=== PATIENT | female | born 1945 | race Caucasian/White ===

== ENCOUNTER → 2017-01-19 | Outpatient (CLI) | payer MEDICARE ==
[2016-08-07 19:25] VITALS: BP 163/93
[~2017-01-19] MED LIST: ACET325T9 PO; ASCO60LO PO; ASPI-482 PO; CARB1TAB2 PO; CARB1TAB25 PO; CHOL20004 PO; CITA20TA9 PO; CLON1TAB3 PO; CYCL10TA2 PO; DOCU-27 PO; GABA-586 PO; HYDR-2762 PO; HYDR1TAB12 PO; KETO10TA PO; LEVO100T5 PO; LEVO500T38 PO; LEVO75TA5 PO; MILN50TA PO; OMEG-33 PO; OMEG500C PO; OMEP40CA5 PO; POLY17PO5 PO; RANI150T2 PO; ROPI3TAB PO; TAMS0.4C97 PO; TRAM50TA PO; VITA1000 PO; WARF5TAB PO; carb/levo; fish oil; flexeril
[2017-01-19 14:55] LABS: BASO # 0.1 x10^3/uL (0.0-0.2); BASO % 1 % (0-3); EOS % 3 % (0-3); HEMATOCRIT 40.6 % (36.0-47.0); HEMOGLOBIN 13.7 g/dL (12.0-15.5); LYMPH # 3.7 x10^3/uL (1.0-4.8); LYMPH % 35 % (24-48); MEAN CORPUSCULAR HEMOGLOBIN 34 pg (25-35); MEAN CORPUSCULAR HGB CONC 34 g/dL (31-37); MEAN CORPUSCULAR VOLUME 100 fL (79-100); MONO % 7 % (0-9); NEUT % 53 % (31-73); PLATELET COUNT 254 x10^3/uL (140-400); RED BLOOD COUNT 4.07 x10^6/uL (3.50-5.40); RED CELL DISTRIBUTION WIDTH 14.2 % (11.5-14.5); WHITE BLOOD COUNT 10.5 x10^3/uL (4.0-11.0)
[2017-01-19 15:20] LABS: ALBUMIN 3.1 g/dL (3.4-5.0); ALBUMIN/GLOBULIN RATIO 0.8 (1.0-1.7); CALCIUM 9.3 mg/dL (8.5-10.1); CREATININE 0.9 mg/dL (0.6-1.0); GFR 61.5; TOTAL BILIRUBIN 0.6 mg/dL (0.2-1.0); TOTAL PROTEIN 6.9 g/dL (6.4-8.2)
== END | disposition home or self-care (01) ==
LOC: SURGPAT 13:57
PROVIDERS: ATTEND Surgery
DX: Z01.812 Encounter for preprocedural laboratory examination (principal)
CPT/HCPCS: 36415; 80053; 85027

== ENCOUNTER 2017-01-26 06:42 | Inpatient (IN) | payer MEDICARE ==
[~2017-01-26] VITALS: Ht 162.6 cm; Wt 65.8 kg
[2017-01-26] VITALS (11 sets, daily range): BP systolic 109–132; BP diastolic 63–80
[~2017-01-26 06:42] MED LIST changes: +CEFOXITIN 2GM IVPB FOR OMNI 100 ML IV PRN
[2017-01-26] MEDS ORDERED: IV RINGERS,LACTATED 1000ML 1,000 ML IV SCH (07:00)
[2017-01-26] MEDS ORDERED: PROCHLORPERAZINE 10 MG/2 ML VIAL. IV PRN (07:00)
[2017-01-26] MEDS ORDERED: MORPHINE SULFATE 2 MG/ML DISP.SYRIN. IV PRN (07:00)
[2017-01-26] MEDS ORDERED: LIDOCAINE 1% 1 ML SYRINGE. ID PRN (07:00)
[2017-01-26] MEDS ORDERED: HYDROMORPHONE 2 MG/ML VIAL. IV PRN (07:00)
[2017-01-26] MEDS ORDERED: FENTANYL PF 100 MCG/2 ML VIAL. IV PRN (07:00)
[2017-01-26] MEDS ORDERED: LIDOCAINE 2% 100 MG/5 ML DISP.SYRIN. ONE (07:04)
[2017-01-26] MEDS ORDERED: PROPOFOL 20 ML IV ONE (07:05)
[2017-01-26] MEDS ORDERED: DEXAMETHASONE SOD PHOS 20 MG/5 ML VIAL. ONE (07:05)
[2017-01-26] MEDS ORDERED: FAMOTIDINE 20 MG/2 ML VIAL ONE (07:05)
[2017-01-26] MEDS ORDERED: ONDANSETRON PF 4 MG/2 ML VIAL. ONE (07:05)
[2017-01-26] MEDS ORDERED: FENTANYL PF 100 MCG/2 ML VIAL. ONE ×2 (07:07→09:12)
[2017-01-26] MEDS ORDERED: ROCURONIUM 50 MG/5 ML VIAL. ONE (07:07)
[2017-01-26] MEDS ORDERED: MIDAZOLAM HCL 2 MG/2 ML VIAL. ONE (07:08)
[2017-01-26] MEDS: IV RINGERS,LACTATED 1000ML 1,000 ML IV SCH ×4 (07:52→21:35)
[2017-01-26] MEDS ORDERED: ACETAMINOPHEN INTRAVENOUS 100 ML IV ONE (07:55)
--- NOTE | 2017-01-26 08:02 | PDOC ---
SURGICAL PROGRESS NOTE Subjective 72 yo F with rectal stenosis, loop colostomy TO OR for colostomy takedown, rigid sigmoidoscopy R/B/A d/w pt and pt's [id number] Vital Signs Vital Signs Date Time Temp Pulse Resp B/P Pulse Ox O2 Delivery O2 Flow Rate FiO2 01/26/17 07:50 98.8 71 18 98 98.8 ISABEL MICHELE MD Jan 26, 2017 08:02
[2017-01-26] MEDS ORDERED: EPHEDRINE PF IN SALINE 50 MG/5 ML DISP.SYRIN. IV ONE (08:18)
[2017-01-26] MEDS ORDERED: LIDOCAINE 2% TOPICAL JELLY 5GM TUBE. TP ONE (08:20)
[2017-01-26] MEDS ORDERED: PHENYLEPHRINE in 0.9% NACL PF 1 MG/10 ML DISP.SYRIN. IV ONE (08:23)
[2017-01-26] MEDS ORDERED: VECURONIUM BOLUS 10 MG VIAL. IV ONE (09:12)
[2017-01-26] MEDS ORDERED: 0.9 % SODIUM CHLORIDE 50 ML VIAL. IJ ONE (09:13)
--- NOTE | 2017-01-26 09:44 | PREOP HP ---
DATE OF SERVICE: 01/26/2017 REFERRING PHYSICIANS: Dr. Vic Anna. CHIEF COMPLAINT: None. DIAGNOSIS: Rectal stenosis, presence of colostomy. PLANNED PROCEDURE: Rigid sigmoidoscopy and takedown of loop colostomy. HISTORY OF PRESENT ILLNESS: This is a 72-year-old female who has a history of rectal stenosis status post altemeier procedure and fall. She subsequently had a rectal dilatation and diverting loop colostomy. She and her noted increasing difficulty dealing with the colostomy and frequent episode of the spillage. She has been tolerating regular diet and wishes to proceed with colostomy takedown. ALLERGIES: SHE HAS ALLERGY TO SULFA, PENICILLIN. MEDICATIONS: Include levothyroxine, vitamin D, carbidopa, citalopram, clonazepam, Caspar, gabapentin, Protonix, senna, vitamin E, ropinirole, fish oil and Ativan. PAST MEDICAL HISTORY: Parkinson's disease, fibromyalgia, thyroid disease, history of blood clots, migraine headaches. PAST SURGICAL HISTORY: Bilateral knee replacement, hysterectomy, bilateral salpingo-oophorectomy, altemeier procedure in 05/2016, cholecystectomy, breast biopsy, tonsillectomy, bilateral carpal tunnel repair, laminectomy, back fusion, sigmoid colostomy with rectal dilatation and laparoscopic sigmoid colectomy. SOCIAL HISTORY: No tobacco, no significant alcohol use. FAMILY HISTORY: Noncontributory. REVIEW OF SYSTEMS: All systems reviewed and negative except for HPI. PHYSICAL EXAMINATION: GENERAL: Well-developed, obese female lying in bed in the preoperative area. She is wheelchair bound primarily. HEENT: Normocephalic, anicteric sclerae. Oropharynx clear. NECK: Supple. CHEST: Bilateral chest excursion, no tenderness. ABDOMEN: Soft, nondistended, nontender to palpation. Her ostomy is pink and viable, but is prolapsed a fair amount. NEUROLOGIC: She does have somewhat flat affect with slow movement consistent with Parkinson's. EXTREMITIES: Normal range of motion, in a wheel chair. RECTAL: Deferred. ASSESSMENT AND PLAN: Colostomy prolapse, presence of colostomy. 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 The patient and patient's as well as the patient's son previously had been informed of the risks, benefits and alternatives to procedure, risks including but not limited to bleeding, infection, damage to surrounding structures, risk of anesthesia, risk of anastomotic leak. Risk of anesthesia and significant risk of rectal leakage as patient has fairly poor sphincter control. The patient and patient's and the patient's son previously appeared to understand and their insightful questions were answered and they agreed to proceed. Thank you for allowing participation in the care of this pleasant patient. ISABEL MICHELE MD DR: MERVAT/nts JOB#: [id number] / [id number] VIC Love MD MTDD
[2017-01-26] MEDS ORDERED: NEOSTIGMINE METHYLSULFATE 5 MG/5 ML SYRINGE. ONE (09:50)
[2017-01-26] MEDS ORDERED: GLYCOPYRROLATE 1 MG/5 ML VIAL. ONE (09:50)
[2017-01-26] MEDS ORDERED: DESFLURANE > 120 MINUTES IH ONE (10:05)
[2017-01-26] MEDS: IV NORMAL SALINE 1000ML BAG 1,000 ML IV SCH (10:16)
--- NOTE | 2017-01-26 10:26 | PDOC ---
BRIEF OPERATIVE NOTE Pre-Op Diagnosis Rectal stenosis, colostomy Post-Op Diagnosis same Procedure Performed Colostomy takedown, rigid sigmoidoscopy Surgeon Homer Anesthesia Type: General Blood Loss 50 IV Fluid 1200 Specimens Obtained colon Findings min stenosis Complications none Additional Remarks [id number] ISABEL MICHELE MD Jan 26, 2017 10:26
[2017-01-26] MEDS ORDERED: 0.9 % SODIUM CHLORIDE 10 ML DISP.SYRIN. IV PRN (10:30)
[2017-01-26] MEDS ORDERED: NALOXONE 0.4 MG/ML VIAL. IV PRN (10:30)
[2017-01-26] MEDS ORDERED: HYDROMORPHONE STANDARD PCA 30 ML IV PRN (10:30)
[2017-01-26] MEDS ORDERED: ONDANSETRON PF 4 MG/2 ML VIAL. IV PRN (10:30)
[2017-01-26] MEDS: FENTANYL PF 100 MCG/2 ML VIAL. IV PRN ×2 (11:06→11:42)
--- NOTE | 2017-01-26 11:36 | OP ---
DATE OF SURGERY: 01/26/2017 REFERRING PHYSICIANS: Dr. Vic Anna PREOPERATIVE DIAGNOSIS: Rectal stenosis, presence of colostomy. POSTOPERATIVE DIAGNOSIS: Rectal stenosis, presence of colostomy. PROCEDURE: Rigid sigmoidoscopy colostomy takedown. SURGEON: Daniel Michele MD ESTIMATED BLOOD LOSS: 50 mL. FLUIDS: 1200 mL. COMPLICATIONS: None. FINDINGS: Prolapsed colostomy. No obvious intra-abdominal pathology, minimal rectal stenosis. INDICATIONS: A 72-year-old female with history of rectal stenosis and previous looped colostomy. She is having difficulties with increasing leakage from the colostomy, and this was felt to be secondary to prolapsing of the colostomy. Subsequently, it was felt the patient would best be served by a colostomy takedown as well as a rigid sigmoidoscopy to evaluate her stenosis. The patient and the patient's family were informed of the risks, benefits, alternatives to the procedure, risks including but not limited to bleeding, infection, damage to surrounding structures, risk of anesthesia, risk of an open procedure, and risk of anastomotic leak. The patient and the patient's family appeared to understand, and their insightful questions were answered, and they agreed to proceed. DESCRIPTION OF PROCEDURE: After obtaining informed consent, the patient was taken to the operating room, induced under general endotracheal anesthetic. The patient was prepped and draped in the usual fashion in the anterior abdominal wall. A rigid sigmoidoscopy was introduced as well as a rectal exam which demonstrated a mid-rectal stenosis. However, this was significantly improved over previous and was fairly minimal and easily allowed the rigid sigmoidoscopy to pass through this. The colostomy was identified in the left lower quadrant. Electrocautery was used to divide the mucocutaneous junction. The colostomy was then mobilized out of the surrounding subcutaneous tissues. It was noted to be significantly prolapsed. The peritoneal cavity was entered. There was no obvious intra-abdominal pathology. A very large amount of redundant colon was eviscerated. A [id number] staple anastomosis was created using a gentle load GATITO stapler, and the end of this was sealed off using a TA 60 stapler. The mesentery was divided using electrocautery, and vessels were ligated using 3-0 Vicryl stitches. The staple line was oversewn using a continuous 3-0 Vicryl stitch. The anastomosis was noted to be patent and in no tension, completely viable. No evidence for leakage. Rigid sigmoidoscopy was reintroduced, and air across the anastomosis without evidence of air leakage, and the anastomosis distended well. Clothes were changed, and the viscera was returned to the abdominal cavity. The fascia was reapproximated in a ghys-ysfk-[id number] fashion and a transverse fashion using 2 looped 0 PDS stitches in continuous fashion. Subcutaneous tissues were closed in multiple layers using a 3-0 Vicryl in a pursestring fashion. The skin incision was loosely reapproximated using a 4-0 Monocryl. Sterile dressing was placed over the wound. The patient tolerated the procedure well and was discharged to recovery room in stable condition. All counts were correct. There were no immediate complications. Wound classification is dirty secondary to colostomy. Thank you for allowing me to participate in the care of this very pleasant patient. DANIEL MICHELE MD DR: MERVAT/klarissa JOB#: [id number] / [id number] Vic Odom
[2017-01-26] MEDS: ENOXAPARIN 40 MG/0.4 ML DISP.SYRIN. SQ SCH (18:03)
[2017-01-27 03:08] VITALS: BP 142/82
[2017-01-27] MEDS: IV RINGERS,LACTATED 1000ML 1,000 ML IV SCH ×3 (04:05→16:16)
[2017-01-27 05:50] LABS: BASO # 0.1 x10^3/uL (0.0-0.2); BASO % 1 % (0-3); EOS % 0 % (0-3); HEMATOCRIT 35.5 % (36.0-47.0); HEMOGLOBIN 11.8 g/dL (12.0-15.5); LYMPH # 3.1 x10^3/uL (1.0-4.8); LYMPH % 18 % (24-48); MEAN CORPUSCULAR HEMOGLOBIN 34 pg (25-35); MEAN CORPUSCULAR HGB CONC 33 g/dL (31-37); MEAN CORPUSCULAR VOLUME 102 fL (79-100); MONO % 6 % (0-9); NEUT % 76 % (31-73); PLATELET COUNT 250 x10^3/uL (140-400); RED BLOOD COUNT 3.49 x10^6/uL (3.50-5.40); RED CELL DISTRIBUTION WIDTH 14.1 % (11.5-14.5); WHITE BLOOD COUNT 17.8 x10^3/uL (4.0-11.0)
[2017-01-27 07:00] VITALS: BP 144/87
--- NOTE | 2017-01-27 08:49 | PDOC ---
Provider Note Provider Note [id number] SHALONDA CARO MD Jan 27, 2017 08:49
[2017-01-27] MEDS: HYDROCODONE/APAP 5/325MG TABLET. PO PRN ×2 (10:00→19:11)
[2017-01-27] MEDS: LEVOTHYROXINE 75 MCG TABLET PO SCH (10:01)
[2017-01-27] MEDS: CARBIDOPA/LEVODOPA 25/100MG TABLET PO SCH ×3 (10:01→21:52)
[2017-01-27] MEDS: CITALOPRAM 20 MG TABLET. PO SCH (10:01)
[2017-01-27] MEDS: ENOXAPARIN 40 MG/0.4 ML DISP.SYRIN. SQ SCH (10:01)
[2017-01-27] MEDS: IV NORMAL SALINE 1000ML BAG 1,000 ML IV SCH (10:02)
[2017-01-27 11:00] VITALS: BP 151/98
[2017-01-27 11:15] LABS: PLT ESTIMATE ADEQUATE (ADEQUATE)
--- NOTE | 2017-01-27 13:54 | PDOC ---
SURGICAL PROGRESS NOTE Subjective Pt with c/o mild LLQ pain, farooq clears Vital Signs Vital Signs Date Time Temp Pulse Resp B/P Pulse Ox O2 Delivery O2 Flow Rate FiO2 01/27/17 11:00 98.2 103 16 151/98 95 Nasal Cannula 2.0 98.2 I&O Intake and Output 01/27/17 07:00 Intake Total 1550 ml Output Total 1760 ml Balance -210 ml Intake Oral 50 ml IV Total 1500 ml Output Urine Total 1760 ml # Voids 2 General: Alert, Oriented X3, Cooperative, No acute distress Abdomen: Soft, Other (mild TTP LLQ dressing c/d/i) Labs Laboratory Tests Test 01/27/17 04:56 White Blood Count 17.8x10^3/uL (4.0-11.0) Red Blood Count 3.49x10^6/uL (3.50-5.40) Hemoglobin 11.8g/dL (12.0-15.5) Hematocrit 35.5% (36.0-47.0) Mean Corpuscular Volume 102fL (79-100) Mean Corpuscular Hemoglobin 34pg (25-35) Mean Corpuscular Hemoglobin Concent 33g/dL (31-37) Red Cell Distribution Width 14.1% (11.5-14.5) Platelet Count 250x10^3/uL (140-400) Neutrophils (%) (Auto) 76% (31-73) Lymphocytes (%) (Auto) 18% (24-48) Monocytes (%) (Auto) 6% (0-9) Eosinophils (%) (Auto) 0% (0-3) Basophils (%) (Auto) 1% (0-3) Neutrophils # (Auto) 13.4x10^3uL (1.8-7.7) Lymphocytes # (Auto) 3.1x10^3/uL (1.0-4.8) Monocytes # (Auto) 1.1x10^3/uL (0.0-1.1) Eosinophils # (Auto) 0.1x10^3/uL (0.0-0.7) Basophils # (Auto) 0.1x10^3/uL (0.0-0.2) Segmented Neutrophils % 80% (35-66) Band Neutrophils % 2% (0-9) Lymphocytes % 14% (24-48) Monocytes % 4% (0-10) Platelet Estimate Adequate (ADEQUATE) Laboratory Tests Test 01/27/17 04:56 White Blood Count 17.8x10^3/uL (4.0-11.0) Red Blood Count 3.49x10^6/uL (3.50-5.40) Hemoglobin 11.8g/dL (12.0-15.5) Hematocrit 35.5% (36.0-47.0) Mean Corpuscular Volume 102fL (79-100) Mean Corpuscular Hemoglobin 34pg (25-35) Mean Corpuscular Hemoglobin Concent 33g/dL (31-37) Red Cell Distribution Width 14.1% (11.5-14.5) Platelet Count 250x10^3/uL (140-400) Neutrophils (%) (Auto) 76% (31-73) Lymphocytes (%) (Auto) 18% (24-48) Monocytes (%) (Auto) 6% (0-9) Eosinophils (%) (Auto) 0% (0-3) Basophils (%) (Auto) 1% (0-3) Neutrophils # (Auto) 13.4x10^3uL (1.8-7.7) Lymphocytes # (Auto) 3.1x10^3/uL (1.0-4.8) Monocytes # (Auto) 1.1x10^3/uL (0.0-1.1) Eosinophils # (Auto) 0.1x10^3/uL (0.0-0.7) Basophils # (Auto) 0.1x10^3/uL (0.0-0.2) Segmented Neutrophils % 80% (35-66) Band Neutrophils % 2% (0-9) Lymphocytes % 14% (24-48) Monocytes % 4% (0-10) Platelet Estimate Adequate (ADEQUATE) Problem List Problems Medical Problems: (1) Rectal stenosis Status: Acute Assessment/Plan s/p colostomy takedown cont clears await bowel fxn Problems: ISABEL MICHELE MD Jan 27, 2017 13:54
[2017-01-27 15:00] VITALS: BP 117/76
[2017-01-27 19:00] VITALS: BP 147/91
[2017-01-27] MEDS: CLONAZEPAM 1 MG TABLET PO PRN (19:11)
[2017-01-27] MEDS ORDERED: LORAZEPAM 2 MG/ML VIAL IV PRN (21:30)
[2017-01-27] MEDS ORDERED: LORAZEPAM 2 MG/ML VIAL IV ONE (22:00)
[2017-01-27] MEDS: HALOPERIDOL LACT 5 MG/ML VIAL. IVP PRN (22:53)
[2017-01-27 23:00] VITALS: BP 125/73
[2017-01-28] MEDS: IV RINGERS,LACTATED 1000ML 1,000 ML IV SCH ×4 (00:15→21:04)
[2017-01-28 03:00] VITALS: BP 132/80
[2017-01-28] MEDS: HALOPERIDOL LACT 5 MG/ML VIAL. IVP PRN (03:56)
[2017-01-28] MEDS: HYDROCODONE/APAP 5/325MG TABLET. PO PRN ×3 (03:56→21:03)
[2017-01-28 07:00] VITALS: BP 134/74
--- NOTE | 2017-01-28 08:02 | CONS ---
DATE OF CONSULTATION: 01/27/2017 CHIEF COMPLAINT: Medical evaluation. HISTORY OF PRESENT ILLNESS: A 72-year-old white female who had a colostomy takedown yesterday and has ongoing history of Parkinson's with mild dementia and chronic pain. She is followed by a neurologist, I believe at [facility] and I have not seen her for some months, but I have reviewed her home meds. We will continue most of the home meds in her current doses and will follow medically. There appears to be no new medical problems at this time and she is oriented to date, time, place and situation pretty well despite reports from home nursing in the past of confusion and agitation, which ____ phenomenon. Current laboratories look unremarkable as well. SHALONDA CARO MD DR: ARIANNE/nts JOB#: [id number] / [id number]
[2017-01-28] MEDS: CITALOPRAM 20 MG TABLET. PO SCH (08:22)
[2017-01-28] MEDS: LEVOTHYROXINE 75 MCG TABLET PO SCH (08:22)
[2017-01-28] MEDS: CARBIDOPA/LEVODOPA 25/100MG TABLET PO SCH ×3 (08:22→21:03)
--- NOTE | 2017-01-28 08:52 | PDOC ---
Provider Note Provider Note alert , oriented now but was agitated and confussed last pm, responded to haldol - on cl per surgery, will cont same meds SHALONDA CARO MD Jan 28, 2017 08:52
--- NOTE | 2017-01-28 09:16 | PDOC ---
SURGICAL PROGRESS NOTE Subjective passing stool tolerating clears did have avery replaced for retention Vital Signs Vital Signs Date Time Temp Pulse Resp B/P Pulse Ox O2 Delivery O2 Flow Rate FiO2 01/28/17 07:00 98.2 85 16 134/74 96 Nasal Cannula 2.0 98.2 I&O Intake and Output 01/28/17 07:00 Intake Total 360 ml Output Total 1950 ml Balance -1590 ml Intake Oral 360 ml Output Urine Total 1950 ml General: Alert, Oriented X3, Cooperative, No acute distress Abdomen: Soft, Other (incision c/d/i, no erythema ) Labs Laboratory Tests Test 01/27/17 04:56 01/27/17 21:32 White Blood Count 17.8x10^3/uL (4.0-11.0) Red Blood Count 3.49x10^6/uL (3.50-5.40) Hemoglobin 11.8g/dL (12.0-15.5) Hematocrit 35.5% (36.0-47.0) Mean Corpuscular Volume 102fL (79-100) Mean Corpuscular Hemoglobin 34pg (25-35) Mean Corpuscular Hemoglobin Concent 33g/dL (31-37) Red Cell Distribution Width 14.1% (11.5-14.5) Platelet Count 250x10^3/uL (140-400) Neutrophils (%) (Auto) 76% (31-73) Lymphocytes (%) (Auto) 18% (24-48) Monocytes (%) (Auto) 6% (0-9) Eosinophils (%) (Auto) 0% (0-3) Basophils (%) (Auto) 1% (0-3) Neutrophils # (Auto) 13.4x10^3uL (1.8-7.7) Lymphocytes # (Auto) 3.1x10^3/uL (1.0-4.8) Monocytes # (Auto) 1.1x10^3/uL (0.0-1.1) Eosinophils # (Auto) 0.1x10^3/uL (0.0-0.7) Basophils # (Auto) 0.1x10^3/uL (0.0-0.2) Segmented Neutrophils % 80% (35-66) Band Neutrophils % 2% (0-9) Lymphocytes % 14% (24-48) Monocytes % 4% (0-10) Platelet Estimate Adequate (ADEQUATE) Glucose (Fingerstick) 111mg/dL (70-99) Laboratory Tests Test 01/27/17 21:32 Glucose (Fingerstick) 111mg/dL (70-99) Problem List Problems Medical Problems: (1) Rectal stenosis Status: Acute Assessment/Plan s/p colostomy takedown advance diet urinary retention--this has been a problem in past, leave avery and consult urology Problems: BROOK ARRIOLA APRN Jan 28, 2017 09:16
[2017-01-28] MEDS: ENOXAPARIN 40 MG/0.4 ML DISP.SYRIN. SQ SCH (10:20)
[2017-01-28] MEDS ORDERED: HALOPERIDOL LACT 5 MG/ML VIAL. IVP PRN (10:45)
[2017-01-28 10:48] VITALS: BP 101/61
--- NOTE | 2017-01-28 11:39 | PDOC2 ---
ALEXEYRITO L SATELLITE COMMUNICATIONS ENGINEER 01/28/17 1139: UROLOGY CONSULT Date of Admission DATE: 01/28/17 TIME: 11:30 Reason for Consult: Urinary Retention Referring Physician: Dr. Coronel Problems: (1) Urinary retention HISTORY OF KIDNEY PROBLEMS: No HISTORY OF INCONTINENCE: No HISTORY FREQUENCY/NOCTURIA: Yes HISTORY OF CANCER: No Chief Complaint Pt unable to void last night avery catheter was inserted and left to gravity Source: Caregiver, Chart review, Patient Reason for Visit: GI complaints, surgery 01/26/17 and subsequent urine retention She was taken to surgery on 01/27/17 for colostomy difficulties. While in house she had a lot of trouble voiding so a avery catheter was inserted evening of ROS Patient seen and examined. states that patient has had a lot of trouble in the past with urinary retention every time she comes into the hospital. No other or kidney problems. Some frequency at night with sundown syndrome Past Surgical History: Other (colostomy, colostomy takedown (most recent ), hysterectomy 20-30 years ago, tonsillectomy as a child) Current Medications Current Medications Fentanyl Citrate (Fentanyl 2ml Vial) 25 mcg PRN Q5MIN PRN IV MILD PAIN Last administered on 01/26/17 11:42; Start 01/26/17 at 07:00; Stop 01/27/17 at 06:59 ; Status DC Fentanyl Citrate (Fentanyl 2ml Vial) 50 mcg PRN Q5MIN PRN IV MODERATE PAIN Last administered on 01/26/17t 11:18; Start 01/26/17 at 07:00; Stop 01/27/17 at 06:59; Status DC Morphine Sulfate 1 mg 1 mg PRN Q10MIN PRN IV SEVERE PAIN; Start 01/26/17 at 07: 00; Stop 01/27/17 at 06:59; Status DC Lactated Ringer's (Iv Lactated Ringers) 1,000 ml @ 0 mls/hr Q0M IV ; Start at 07:00; Stop 01/26/17 at 18:59; Status DC Lidocaine HCl 2 ml 1X PRN PRN ID IV START; Start 01/26/17 at 07:00; Stop at 06:59; Status DC Hydromorphone HCl (Dilaudid) 0.5 mg PRN Q10MIN PRN IV SEVERE PAIN, Second choice; Start 01/26/17 at 07:00; Stop 01/27/17 at 06:59; Status DC Prochlorperazine Edisylate 5 mg 5 mg PACU PRN PRN IV NAUSEA; Start 01/26/17 at 07:00; Stop 01/27/17 at 06:59; Status DC Cefoxitin Sodium (Mefoxin 2gm Ivpb For Omni) 100 ml @ 200 mls/hr 1X PREOP PRN IV PRIOR TO PROCEDURE Last administered on 01/26/17t 08:30; Start 01/26/17 at 06 :00 Lidocaine HCl 100 mg STK-MED ONCE .ROUTE ; Start 01/26/17 at 07:04; Stop at 07:05; Status DC Famotidine (Pepcid) 20 mg STK-MED ONCE .ROUTE ; Start 01/26/17 at 07:05; Stop at 07:06; Status DC Ondansetron HCl 4 mg 4 mg STK-MED ONCE .ROUTE ; Start 01/26/17 at 07:05; Stop at 07:06; Status DC Propofol (Diprivan) 20 ml @ As Directed STK-MED ONCE IV ; Start 01/26/17 at 07: 05; Stop 01/26/17 at 07:06; Status DC Dexamethasone Sodium Phosphate (Decadron) 20 mg STK-MED ONCE .ROUTE ; Start at 07:05; Stop 01/26/17 at 07:06; Status DC Fentanyl Citrate (Fentanyl 2ml Vial) 100 mcg STK-MED ONCE .ROUTE ; Start at 07:07; Stop 01/26/17 at 07:08; Status DC Rocuronium Gilbert (Zemuron) 50 mg STK-MED ONCE .ROUTE ; Start 01/26/17 at 07:07 ; Stop 01/26/17 at 07:08; Status DC Midazolam HCl 2 mg 2 mg STK-MED ONCE .ROUTE ; Start 01/26/17 at 07:08; Stop at 07:09; Status DC Acetaminophen 100 ml @ As Directed STK-MED ONCE IV ; Start 01/26/17 at 07:55; Stop 01/26/17 at 07:56; Status DC Lactated Ringer's (Iv Lactated Ringers) 1,000 ml @ 75 mls/hr [id number] IV Last administered on 01/26/17 07:52; Start 01/26/17 at 08:15; Stop 01/28/17 at 02:14 ; Status DC Ephedrine Sulfate 50 mg STK-MED ONCE IV ; Start 01/26/17 at 08:18; Stop at 08:19; Status DC Lidocaine HCl (Xylocaine 2% Topical 5gm Tube) 5 martita STK-MED ONCE TP ; Start at 08:20; Stop 01/26/17 at 08:21; Status DC Phenylephrine HCl 1 mg STK-MED ONCE IV ; Start 01/26/17 at 08:23; Stop 01/26/17 at 08:24; Status DC Fentanyl Citrate (Fentanyl 2ml Vial) 100 mcg STK-MED ONCE .ROUTE ; Start at 09:12; Stop 01/26/17 at 09:13; Status DC Vecuronium Gilbert (Norcuron Bolus) 10 mg STK-MED ONCE IV ; Start 01/26/17 at 09 :12; Stop 01/26/17 at 09:13; Status DC Sodium Chloride (Sodium Chloride) 50 ml STK-MED ONCE IJ ; Start 01/26/17 at 09: 13; Stop 01/26/17 at 09:14; Status DC Neostigmine Methylsulfate 5 mg STK-MED ONCE .ROUTE ; Start 01/26/17 at 09:50; Stop 01/26/17 at 09:51; Status DC Glycopyrrolate (Robinul) 1 mg STK-MED ONCE .ROUTE ; Start 01/26/17 at 09:50; Stop 01/26/17 at 09:51; Status DC Desflurane (Suprane) 90 ml STK-MED ONCE IH ; Start 01/26/17 at 10:05; Stop 01/26 at 10:06; Status DC Enoxaparin Sodium (Lovenox 40mg Syringe) 40 mg Q24H SQ Last administered on 01/28 10:20; Start 01/26/17 at 10:30 Sodium Chloride 3 ml 3 ml QSHIFT PRN IV AFTER MEDS AND BLOOD DRAWS; Start 01/26 at 10:30 Lactated Ringer's (Iv Lactated Ringers) 1,000 ml @ 100 mls/hr Q10H IV Last administered on 01/28/17 02:16; Start 01/26/17 at 10:16 Acetaminophen/ Hydrocodone Bitart (Lortab 5/325) 1 tab PRN Q4HRS PRN PO MILD PAIN Last administered on 01/28/17 03:56; Start 01/26/17 at 10:30 Naloxone HCl 0.4 mg 0.4 mg PRN Q2MIN PRN IV SEE INSTRUCTIONS; Start 01/26/17 at 10:30 Sodium Chloride 1,000 ml @ 25 mls/hr Q24H IV ; Start 01/26/17 at 10:16; Stop at 02:14; Status DC Hydromorphone HCl (Dilaudid Standard CARDING DOUBLER) 30 ml @ 0 mls/hr CONT PRN PRN IV PROTOCOL Last administered on 01/26/17 12:16; Start 01/26/17 at 10:30; Stop 01/28/17 at 01:58; Status DC Ondansetron HCl (Zofran) 4 mg PRN Q6HRS PRN IV NAUESA, 1ST CHOICE; Start at 10:30 Carbidopa/Levodopa (Sinemet 25/100) 1 tab TID PO Last administered on 01/28/17 08:22; Start 01/27/17 at 09:30 Citalopram Hydrobromide (Celexa) 20 mg DAILY PO Last administered on 01/28/17 08:22; Start 01/27/17 at 09:30 Clonazepam (Klonopin) 1 mg PRN DAILY PRN PO ANXIETY / AGITATION Last administered on 01/27/17 19:11; Start 01/27/17 at 08:45 Levothyroxine Sodium (Synthroid) 75 mcg DAILY07 PO Last administered on 08:22; Start 01/27/17 at 09:30 Lorazepam (Ativan) 0.5 mg 1X ONCE IV Last administered on 01/27/17 21:52; Start 01/27/17 at 22:00; Stop 01/27/17 at 22:01; Status DC Lorazepam (Ativan) 0.5 mg PRN Q6HRS PRN IV ANXIETY / AGITATION; Start 01/27/17 at 21:30 Haloperidol Lactate (Haldol) 1 mg PRN Q6HRS PRN IVP AGITATION Last administered on 01/28/17t 03:56; Start 01/27/17 at 21:45; Stop 01/28/17 at 04:24; Status DC Haloperidol Lactate (Haldol) 1 mg PRN Q6HRS PRN IVP AGITATION; Start 01/28/17 at 10:45 Active Scripts Active Reported Ranitidine Hcl 150 Mg Tablet 1 Tab PO BID Colace (Docusate Sodium) 100 Mg Capsule 1 Cap PO PRN DAILY PRN Tramadol Hcl 50 Mg Tablet 0.5 Tab PO TID Flomax (Tamsulosin Hcl) 0.4 Mg Cap.er.24h 1 Cap PO DAILY Sinemet 25-100 Mg Tablet (Carbidopa/Levodopa) 1 Each Tablet 1 Tab PO TID Fish Oil (Endicott-3 Fatty Acids) 500 Mg Capsule.dr 1,000 Mg PO DAILY Vitamin D-3 (Cholecalciferol (Vitamin D3)) 2,000 Unit Capsule 2,000 Unit PO DAILY Levothyroxine Sodium 100 Mcg Tablet 1 Tab PO DAILY06 Cyclobenzaprine Hcl 10 Mg Tablet 1 Tab PO TID Clonazepam 1 Mg Tablet 1 Tab PO PRN DAILY PRN Hydrocodone-Apap 7.5-325 (Hydrocodone Bit/Acetaminophen) 1 Each Tablet 1-2 Tab PO Q4-6HRS Gabapentin 300 Mg Capsule 300 Mg PO BID last dose this am' next dose tonight Vitamin E 1,000 Unit Capsule 1,000 Unit PO DAILY last dose this am next dose tomorrow am wednesday Requip (Ropinirole Hcl) 3 Mg Tablet 3 Mg PO TID last dose at 2pm next dose tonight Omeprazole 40 Mg Capsule.dr 40 Mg PO DAILY last dose this am next dose tomorrow am wednesday Celexa (Citalopram Hydrobromide) 20 Mg Tablet 20 Mg PO DAILY last dose was this am next dose tomorrow on wednesday Allergies: Coded Allergies: Penicillins (Verified Allergy, Intermediate, hives, 01/19/17) Sulfa (Sulfonamide Antibiotics) (Verified Allergy, Intermediate, hives, ) Physical Examination GEN: NAD HEENT: OP clear CV: S1S2 without murmurs, rubs, or gallops RESP: CTAB without wheezing, rhonchi, or crackles upper lobes, dim to lower. 02 via nasal cannula in place GENITOURINARY: Avery to gravity draining clear yellow urine. No perineal irritation, traces of betaine left from avery insertion on 01/27/17 ABD: BS hypoactive, dressing to abdomen from recent surgery is CDI. Pt passing gas NEURO: AAO x 3, answering questions appropriately DOES THIS PATIENT HAVE URINARY: Yes VITALS Vital Signs Date Time Temp Pulse Resp B/P Pulse Ox O2 Delivery O2 Flow Rate FiO2 01/28/17 10:48 98.3 90 18 101/61 92 Nasal Cannula 2.0 98.3 Labs Laboratory Tests Test 01/27/17 04:56 01/27/17 21:32 White Blood Count 17.8x10^3/uL (4.0-11.0) Red Blood Count 3.49x10^6/uL (3.50-5.40) Hemoglobin 11.8g/dL (12.0-15.5) Hematocrit 35.5% (36.0-47.0) Mean Corpuscular Volume 102fL (79-100) Mean Corpuscular Hemoglobin 34pg (25-35) Mean Corpuscular Hemoglobin Concent 33g/dL (31-37) Red Cell Distribution Width 14.1% (11.5-14.5) Platelet Count 250x10^3/uL (140-400) Neutrophils (%) (Auto) 76% (31-73) Lymphocytes (%) (Auto) 18% (24-48) Monocytes (%) (Auto) 6% (0-9) Eosinophils (%) (Auto) 0% (0-3) Basophils (%) (Auto) 1% (0-3) Neutrophils # (Auto) 13.4x10^3uL (1.8-7.7) Lymphocytes # (Auto) 3.1x10^3/uL (1.0-4.8) Monocytes # (Auto) 1.1x10^3/uL (0.0-1.1) Eosinophils # (Auto) 0.1x10^3/uL (0.0-0.7) Basophils # (Auto) 0.1x10^3/uL (0.0-0.2) Segmented Neutrophils % 80% (35-66) Band Neutrophils % 2% (0-9) Lymphocytes % 14% (24-48) Monocytes % 4% (0-10) Platelet Estimate Adequate (ADEQUATE) Glucose (Fingerstick) 111mg/dL (70-99) Laboratory Tests Test 01/27/17 21:32 Glucose (Fingerstick) 111mg/dL (70-99) Assessment/Plan Plan of care discussed with at bedside and also the patient; we will keep avery in place for another 24 hours at least while patient recovers from surgery. We will re-evaluate the need for this tomorrow. Urology plan of care discussed with attending RN's [place] and findings reported to supervising physian Dr. Ascencio. HELENA ASCENCIO MD 01/28/17 1253: UROLOGY CONSULT Allergies: Coded Allergies: Penicillins (Verified Allergy, Intermediate, hives, 01/19/17) Sulfa (Sulfonamide Antibiotics) (Verified Allergy, Intermediate, hives, ) Assessment/Plan Pt. with 1,000 cc in bladder whn avery was placed I examined Pt. and plan will be to keep avery, flomax and f/u with urology OFFICE MACHINE SERVICER Rito Blackburn in 1 week for voiding trial RITO BLACKBURN APRN Jan 28, 2017 11:39 HELENA ASCENCIO MD Jan 28, 2017 12:53
--- NOTE | 2017-01-28 12:50 | PDOC ---
SUBJECTIVE Subjective Pt. with retention OBJECTIVE Objective avery in place Vital Signs Vital Signs Date Time Temp Pulse Resp B/P Pulse Ox O2 Delivery O2 Flow Rate FiO2 01/28/17 10:48 98.3 90 18 101/61 92 Nasal Cannula 2.0 98.3 01/28/17 08:00 Nasal Cannula 01/28/17 07:00 98.2 85 16 134/74 96 Nasal Cannula 2.0 98.2 01/28/17 04:56 16 93 Nasal Cannula 2.0 01/28/17 03:56 16 93 Nasal Cannula 2.0 01/28/17 03:00 98.3 90 20 132/80 93 Nasal Cannula 2.0 98.3 01/27/17 23:00 94 20 125/73 94 Nasal Cannula 2.0 01/27/17 20:03 Nasal Cannula 2.0 01/27/17 19:11 Room Air 01/27/17 19:00 98.4 92 20 147/91 94 Nasal Cannula 2.0 98.4 01/27/17 15:00 98.4 90 16 117/76 94 Nasal Cannula 2.0 98.4 I & O Intake and Output 01/28/17 07:00 Intake Total 360 ml Output Total 1950 ml Balance -1590 ml Intake Oral 360 ml Output Urine Total 1950 ml PHYSICAL EXAM Physical Exam urine clear in tubing ASSESSMENT/PLAN Assessment/Plan 1,000 cc in bladder when avery placed keep avery flomax f/u 1 week 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
[2017-01-28] MEDS: TAMSULOSIN 0.4 MG CAP.ER.24H. PO SCH (13:32)
--- NOTE | 2017-01-28 14:10 | PATHOLOGY ---
PATHOLOGY REPORT * * * * * * * * FINAL DIAGNOSIS: Segment of colon and attached small segment of skin, colostomy takedown: - Colostomy stoma showing congestion and mild chronic inflammation of mucosa of stoma. - Serosal adhesions of colon with focal foreign body giant cell reaction. (JPM:; d/t: 01/28/17) REPORT ELECTRONICALLY SIGNED BY: Chas Torres M.D. DATE/TIME: 01/28/2017 14:09 * * * * * * * * GROSS PATHOLOGY: The specimen is received in formalin labeled "Cecelia Mcintyre, colon". Received is a segment of colon measuring 5.5 cm in length by 3.2 cm in diameter. One margin is stapled closed. The opposite margin displays a stoma with exposed light du mucosa with a slight amount of surrounding pale du skin measuring 3.2 x 2.8 cm. The serosal surface is covered in a large amount of adhesions. There is a circular defect present, which is located 2.2 cm from the stapled margin, measuring 1.5 x 1.0 cm. Opening the specimen reveals a light du mucosa with normal architectural folds. Sectioning through the circular defect reveals multiple naren present embedded within the mucosa. The specimen is submitted representatively as follows: A1 pharmaceutical specialty representative section through circular defect to stapled margin A2-A3 pharmaceutical specialty representative sections from stoma A4 pharmaceutical specialty representative sections of mucosa. (CAA; 01/27/2017) INITIAL CPT CODE(S): A; 17680 Professional services performed by [facility] [place] [address] Technical services performed by [facility] at [address] [place] [address], [facility] [address] [address]. SPECIMEN(S) RECEIVED: A.Colon CLINICAL HISTORY: Colostomy malfunction PATIENT: CECELIA MCINTYRE /AGE: 2 1945 (Age: 72) PATIENT #: [id number] ALT CASE #: SPECIMEN COLLECTION DATE: 01/26/2017 SPECIMEN RECEIVED DATE: 01/26/2017 [facility] - [address] [place] [address] - PHONE: [phone] * * * END OF REPORT * * *
[2017-01-28 15:00] VITALS: BP 102/54
[2017-01-28 19:00] VITALS: BP 100/61
[2017-01-28 23:00] VITALS: BP 108/63
[2017-01-29 03:00] VITALS: BP 119/71
[2017-01-29 06:14] LABS: CREATININE 0.7 mg/dL (0.6-1.0); GFR 82.3
[2017-01-29] MEDS: HYDROCODONE/APAP 5/325MG TABLET. PO PRN ×3 (06:32→18:04)
[2017-01-29] MEDS: LEVOTHYROXINE 75 MCG TABLET PO SCH (06:32)
[2017-01-29 07:00] VITALS: BP 132/78
[2017-01-29] MEDS: CARBIDOPA/LEVODOPA 25/100MG TABLET PO SCH ×3 (08:45→20:34)
[2017-01-29] MEDS: CITALOPRAM 20 MG TABLET. PO SCH (08:45)
[2017-01-29] MEDS: TAMSULOSIN 0.4 MG CAP.ER.24H. PO SCH (08:45)
[2017-01-29] MEDS: ENOXAPARIN 40 MG/0.4 ML DISP.SYRIN. SQ SCH (08:46)
[2017-01-29] MEDS: IV RINGERS,LACTATED 1000ML 1,000 ML IV SCH (08:49)
--- NOTE | 2017-01-29 09:02 | PDOC ---
SURGICAL PROGRESS NOTE Subjective tolerating diet minimal pain Vital Signs Vital Signs Date Time Temp Pulse Resp B/P Pulse Ox O2 Delivery O2 Flow Rate FiO2 01/29/17 07:40 93 Nasal Cannula 2.0 01/29/17 07:00 98.2 90 18 132/78 98.2 I&O Intake and Output 01/29/17 07:00 Intake Total 1830 ml Output Total 1300 ml Balance 530 ml Intake Oral 830 ml IV Total 1000 ml Output Urine Total 1300 ml # Bowel Movements 1 PATIENT HAS A AVERY: Yes (retention) General: Alert, Oriented X3, Cooperative, No acute distress Abdomen: Soft, Other (ND, incision dressing dry ) Labs Laboratory Tests Test 01/27/17 21:32 01/29/17 05:20 Glucose (Fingerstick) 111mg/dL (70-99) Creatinine 0.7mg/dL (0.6-1.0) Estimated GFR (Cockcroft-Gault) 82.3 Laboratory Tests Test 01/29/17 05:20 Creatinine 0.7mg/dL (0.6-1.0) Estimated GFR (Cockcroft-Gault) 82.3 Problem List Problems Medical Problems: (1) Rectal stenosis Status: Acute (2) Urinary retention Status: Acute Assessment/Plan s/p colostomy takedown advance diet PT/OT, SW for dc planning appreciate urology consult--mariah avery in clinic with them Problems: BROOK ARRIOLA APRN Jan 29, 2017 09:02
--- NOTE | 2017-01-29 10:37 | PDOC ---
SUBJECTIVE Subjective Pt has no complaints at this time, catheter is not bothering her. She admits history of a "hesitant bladder" OBJECTIVE Objective Pt alert and oriented, answering questions appropriately Vital Signs Vital Signs Date Time Temp Pulse Resp B/P Pulse Ox O2 Delivery O2 Flow Rate FiO2 01/29/17 07:45 Nasal Cannula 2.0 01/29/17 07:40 93 Nasal Cannula 2.0 01/29/17 07:00 98.2 90 18 132/78 93 Nasal Cannula 2.0 98.2 01/29/17 06:32 16 94 Nasal Cannula 2.0 01/29/17 03:00 98.2 85 18 119/71 94 Nasal Cannula 2.0 98.2 01/28/17 23:00 98.1 78 18 108/63 93 Nasal Cannula 2.0 98.1 01/28/17 22:03 16 01/28/17 21:03 16 94 Nasal Cannula 2.0 01/28/17 20:00 Nasal Cannula 2.0 01/28/17 19:00 98.1 87 18 100/61 94 Nasal Cannula 2.0 98.1 01/28/17 15:00 97.9 87 18 102/54 94 Nasal Cannula 2.0 97.9 01/28/17 13:34 92 Nasal Cannula 2.0 01/28/17 10:48 98.3 90 18 101/61 92 Nasal Cannula 2.0 98.3 I & O Intake and Output 01/29/17 07:00 Intake Total 1830 ml Output Total 1300 ml Balance 530 ml Intake Oral 830 ml IV Total 1000 ml Output Urine Total 1300 ml # Bowel Movements 1 PHYSICAL EXAM Physical Exam GEN: NAD HEENT: OP clear CV: S1S2 without murmurs, rubs, or gallops RESP: CTAB without wheezing, rhonchi, or crackles ABD: BS active, pt passing gas. ABD dressing in place from recent surgery : Avery catheter with stat lock in place, draining clear yellow urine. No perineal excoriation NEURO: AAO x 3 ASSESSMENT/PLAN Assessment/Plan Urinary retention: plan is to discharge patient home with avery in place. She will return for voiding trial on 02/08/17 since discharge plan is not until Wednesday or Wednesday of next week per attending RN ( pt had 1000 cc out). 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 Problems: (1) Urinary retention COMMENT Lab Laboratory Tests Test 01/29/17 05:20 Creatinine 0.7mg/dL (0.6-1.0) Estimated GFR (Cockcroft-Gault) 82.3 RITO BLACKBURN APRN Jan 29, 2017 10:37
[2017-01-29 11:00] VITALS: BP 107/60
[2017-01-29 15:00] VITALS: BP 104/65
[2017-01-29 19:31] VITALS: BP 110/62
[2017-01-29 23:43] VITALS: BP 116/68
[2017-01-30] MEDS: HYDROCODONE/APAP 5/325MG TABLET. PO PRN ×5 (00:54→21:08)
[2017-01-30 03:15] VITALS: BP 127/79
[2017-01-30] MEDS: IV RINGERS,LACTATED 1000ML 1,000 ML IV SCH (03:19)
[2017-01-30 07:00] VITALS: BP 138/74
[2017-01-30] MEDS: LEVOTHYROXINE 75 MCG TABLET PO SCH (07:00)
[2017-01-30] MEDS: CARBIDOPA/LEVODOPA 25/100MG TABLET PO SCH ×3 (09:14→21:08)
[2017-01-30] MEDS: CITALOPRAM 20 MG TABLET. PO SCH (09:14)
[2017-01-30] MEDS: TAMSULOSIN 0.4 MG CAP.ER.24H. PO SCH (09:14)
[2017-01-30] MEDS: ENOXAPARIN 40 MG/0.4 ML DISP.SYRIN. SQ SCH (10:53)
[2017-01-30 11:00] VITALS: BP 134/77
--- NOTE | 2017-01-30 11:15 | PDOC ---
Provider Note Provider Note sleeping, vss, good output- labs ok- will dc iv fluid as good po- rest of meds same , stay off flexeril re urinary retention SHALONDA CARO MD Jan 30, 2017 11:15
[2017-01-30] MEDS: CHOLECALCIFEROL (VITAMIN D3) 1,000 UNIT TABLET PO SCH (12:36)
[2017-01-30] MEDS: GABAPENTIN 300 MG CAPSULE. PO SCH ×2 (12:36→21:08)
[2017-01-30] MEDS: FAMOTIDINE 20 MG TABLET. PO SCH ×2 (12:36→21:08)
--- NOTE | 2017-01-30 12:48 | PDOC ---
Provider Note Provider Note farooq po. +bm. afeb vss appears well. with her. no concerns abd soft nd nt inc cdi a/p s/p colostomy takedown cont avery for urinary retention sw consulted for dc planning. ORVILLE SOLOMON MD Jan 30, 2017 12:48
[2017-01-30] MEDS: rOPINIRole 1 MG TABLET. PO SCH ×2 (14:08→21:08)
[2017-01-30 15:00] VITALS: BP 128/72
[2017-01-30 19:00] VITALS: BP 100/64
[2017-01-30 23:00] VITALS: BP 112/68
[2017-01-31 03:00] VITALS: BP 123/63
[2017-01-31 07:00] VITALS: BP 132/75
--- NOTE | 2017-01-31 07:49 | PDOC ---
Provider Note Provider Note SLEEPING, VSS, NO TEMP OR NEW PROBS- CONTINUE SAME, DC SNF RE SURGERY PLANS SHALONDA CARO MD Jan 31, 2017 07:49
[2017-01-31] MEDS: CARBIDOPA/LEVODOPA 25/100MG TABLET PO SCH ×3 (08:17→20:33)
[2017-01-31] MEDS: TAMSULOSIN 0.4 MG CAP.ER.24H. PO SCH (08:17)
[2017-01-31] MEDS: LEVOTHYROXINE 75 MCG TABLET PO SCH (08:17)
[2017-01-31] MEDS: rOPINIRole 1 MG TABLET. PO SCH ×3 (08:17→20:33)
[2017-01-31] MEDS: FAMOTIDINE 20 MG TABLET. PO SCH ×2 (08:17→20:33)
[2017-01-31] MEDS: GABAPENTIN 300 MG CAPSULE. PO SCH ×2 (08:17→20:33)
[2017-01-31] MEDS: CHOLECALCIFEROL (VITAMIN D3) 1,000 UNIT TABLET PO SCH (08:18)
[2017-01-31] MEDS: CITALOPRAM 20 MG TABLET. PO SCH (08:18)
[2017-01-31] MEDS: HYDROCODONE/APAP 5/325MG TABLET. PO PRN ×2 (08:21→20:34)
[2017-01-31 11:00] VITALS: BP 125/57
[2017-01-31] MEDS: ENOXAPARIN 40 MG/0.4 ML DISP.SYRIN. SQ SCH (11:31)
[2017-01-31 15:00] VITALS: BP 123/78
--- NOTE | 2017-01-31 16:18 | PDOC ---
Provider Note Provider Note she has no concerns/questions is doing well afeb vss abd soft nt a/p dc planning ongoing. ORVILLE SOLOMON MD Jan 31, 2017 16:18
[2017-01-31 19:43] VITALS: BP 110/66
[2017-01-31 23:06] VITALS: BP 115/72
[2017-02-01] MEDS: HYDROCODONE/APAP 5/325MG TABLET. PO PRN ×2 (00:56→08:43)
[2017-02-01 03:11] VITALS: BP 113/69
[2017-02-01 07:00] VITALS: BP 135/75
--- NOTE | 2017-02-01 08:22 | PDOC ---
Provider Note Provider Note vss, no temp, eating, no new sxs- dc plan in progress- SHALONDA CARO MD Feb 01, 2017 08:22
[2017-02-01] MEDS: LEVOTHYROXINE 75 MCG TABLET PO SCH (08:42)
[2017-02-01] MEDS: CHOLECALCIFEROL (VITAMIN D3) 1,000 UNIT TABLET PO SCH (08:43)
[2017-02-01] MEDS: CLONAZEPAM 1 MG TABLET PO PRN (08:43)
[2017-02-01] MEDS: GABAPENTIN 300 MG CAPSULE. PO SCH (08:44)
[2017-02-01] MEDS: TAMSULOSIN 0.4 MG CAP.ER.24H. PO SCH (08:44)
[2017-02-01] MEDS: rOPINIRole 1 MG TABLET. PO SCH ×2 (08:44→13:58)
[2017-02-01] MEDS: CITALOPRAM 20 MG TABLET. PO SCH (08:44)
[2017-02-01] MEDS: CARBIDOPA/LEVODOPA 25/100MG TABLET PO SCH ×2 (08:44→13:49)
[2017-02-01] MEDS: FAMOTIDINE 20 MG TABLET. PO SCH (08:44)
[2017-02-01] MEDS: ENOXAPARIN 40 MG/0.4 ML DISP.SYRIN. SQ SCH (08:45)
--- NOTE | 2017-02-01 08:49 | PDOC ---
SURGICAL PROGRESS NOTE Subjective Tolerating diet + bm 01/31 Vital Signs Vital Signs Date Time Temp Pulse Resp B/P Pulse Ox O2 Delivery O2 Flow Rate FiO2 02/01/17 07:00 97.9 88 18 135/75 96 Nasal Cannula 2.0 97.9 I&O Intake and Output 02/01/17 07:00 Intake Total 260 ml Output Total 1050 ml Balance -790 ml Intake Oral 260 ml Output Urine Total 1050 ml PATIENT HAS A WALTER: Yes General: Alert, Oriented X3, Cooperative, No acute distress Abdomen: Soft, Other (dressing dry, nontender on exam) Problem List Problems Medical Problems: (1) Rectal stenosis Status: Acute (2) Urinary retention Status: Acute Assessment/Plan s/p colostomy takedown dc planning wean o2 Problems: BROOK ARRIOLA APRN Feb 01, 2017 08:49
[2017-02-01 11:00] VITALS: BP 133/66
== END 2017-02-01 14:15 | disposition short-term general hospital (02) | DRG 331 ==
LOC: OPSVCIP 06:42 → 4 NORTH 12:34
PROVIDERS: ADMIT Surgery; ATTEND Surgery
PROC: 0DBN4ZZ Excision of Sigmoid Colon, Percutaneous Endoscopic Approach (ICD-10-PCS; principal; 2017-01-26 08:00)
DX: K94.09 Other complications of colostomy (principal); K62.4 Stenosis of anus and rectum; F03.90 Unspecified dementia, unspecified severity, without behavioral disturbance, psychotic disturbance, mood disturbance, and anxiety; G20 Parkinson's disease; M79.7 Fibromyalgia; Z96.653 Presence of artificial knee joint, bilateral; E66.9 Obesity, unspecified; R33.9 Retention of urine, unspecified; Z88.0 Allergy status to penicillin; Z88.2 Allergy status to sulfonamides; Z68.24 Body mass index [BMI] 24.0-24.9, adult
CPT/HCPCS: 36415; 82565; 82947; 85007; 85027; 88307; J0131; J0694; J1100; J1170; J1630; J1650; J2060; J2250; J2370; J2405; J2704; J2710; J3010; J3490; J7120; S0028; 97530

== ENCOUNTER 2017-02-05 19:12 | Inpatient (IN) | payer MEDICARE ==
[~2017-02-05] VITALS: Ht 157.5 cm; Wt 69.9 kg
[~2017-02-05 19:12] MED LIST changes: -CEFOXITIN 2GM IVPB FOR OMNI 100 ML IV PRN
[2017-02-05] MEDS ORDERED: DOCUSATE SODIUM 283 MG/5 ML ENEMA. PR ONE (20:00)
[2017-02-05] MEDS ORDERED: SENNOSIDES 8.6 MG TABLET PO ONE (20:00)
[2017-02-05] MEDS ORDERED: DOCUSATE SODIUM 100 MG CAPSULE PO ONE (20:00)
[2017-02-05] MEDS ORDERED: POLYETHYLENE GLYCOL 3350 17 GM PACKET. PO ONE (20:00)
[2017-02-05 20:33] LABS: BILIRUBIN,URINE SMALL (NEG); GLUCOSE,URINE NEGATIVE (NEG); NITRITE,URINE POSITIVE (NEG); PH,URINE 7.5; PROTEIN,URINE 100 mg/dL (NEG-TRACE)
[2017-02-05 20:38] LABS: BASO # 0.2 x10^3/uL (0.0-0.2); BASO % 1 % (0-3); EOS % 3 % (0-3); HEMATOCRIT 30.4 % (36.0-47.0); HEMOGLOBIN 9.9 g/dL (12.0-15.5); LYMPH # 3.4 x10^3/uL (1.0-4.8); LYMPH % 20 % (24-48); MEAN CORPUSCULAR HEMOGLOBIN 33 pg (25-35); MEAN CORPUSCULAR HGB CONC 33 g/dL (31-37); MEAN CORPUSCULAR VOLUME 101 fL (79-100); MONO % 7 % (0-9); NEUT % 69 % (31-73); PLATELET COUNT 412 x10^3/uL (140-400); RED BLOOD COUNT 3.02 x10^6/uL (3.50-5.40); WHITE BLOOD COUNT 16.9 x10^3/uL (4.0-11.0)
[2017-02-05 20:48] LABS: CALCIUM 8.9 mg/dL (8.5-10.1); CREATININE 0.7 mg/dL (0.6-1.0); GFR 82.3
[2017-02-05 20:50] LABS: BACTERIA,URINE MODERATE /HPF (0-FEW); RBC,URINE >40 /HPF (0-2); SQUAMOUS EPITHELIAL CELL,UR FEW /LPF; WBC,URINE >40 /HPF (0-4)
[2017-02-05 20:54] LABS: ALBUMIN 2.6 g/dL (3.4-5.0); DIRECT BILIRUBIN 0.1 mg/dL (0.0-0.2); TOTAL BILIRUBIN 0.5 mg/dL (0.2-1.0); TOTAL PROTEIN 5.8 g/dL (6.4-8.2)
--- NOTE | 2017-02-05 21:07 | PHYS DOC ---
Past Medical History Past Medical History: Anxiety, Constipation, Dementia, Depression, Fibromyalgia , GERD, Hypothyroid, Other Additional Past Medical Histor: parkinson's disease, urine retention, RLS Past Surgical History: Cholecystectomy, Hysterectomy, Knee Replacement, Other Additional Past Surgical Histo: 3 back sx, breast biopsy, carpal tunnel, miniscus repair, ostomy Alcohol Use: None Drug Use: None Adult General Chief Complaint Chief Complaint: ABDOMINAL PAIN HPI HPI 72-year-old female presenting to the emergency department today with abdominal pain. Her pain is sharp nonradiating moderate and associated with lack of bowel movements. She denies nausea or vomiting. She denies fevers or chills. This pain is been present for greater than a week. She has a history of a colostomy that is status post reversal approximate 4 days ago. Review of systems is negative for chest pain shortness of breath nausea vomiting fevers or chills. She reports passing flatus. All other review of systems is negative unless otherwise noted in history of present illness. Review of Systems Review of Systems SEE ABOVE. Current Medications Current Medications Current Medications Medications (Trade) Dose Ordered Sig/Maico Start Time Stop Time Status Last Admin Dose Admin Docusate Sodium (Colace) 100 mg 1X ONCE 02/05/17 20:00 02/05/17 20:01 DC 02/05/17 21:11 100 MG Docusate Sodium (Enemeez) 283 mg 1X ONCE 02/05/17 20:00 02/05/17 20:01 DC 02/05/17 21:11 283 MG Info 1 each 1 each PRN DAILY PRN 02/05/17 21:15 02/07/17 21:14 Iohexol (Omnipaque 300 Mg/ml) 75 ml 1X ONCE 02/05/17 21:15 02/05/17 21:16 DC 02/05/17 21:33 75 ML Levofloxacin/ Dextrose (LEVAQUIN 500mg PREMIX) 100 ml @ 100 mls/hr 1X ONCE 02/05/17 22:30 02/05/17 23:29 02/05/17 22:53 100 MLS/HR Polyethylene Glycol (miraLAX PACKET) 17 gm 1X ONCE 02/05/17 20:00 02/05/17 20:01 DC 02/05/17 21:11 17 GM Sennosides (Senna) 8.6 mg 1X ONCE 02/05/17 20:00 02/05/17 20:01 DC 02/05/17 21:11 8.6 MG Sodium Chloride 500 ml @ 500 mls/hr 1X ONCE 02/05/17 22:30 02/05/17 23:29 02/05/17 22:53 500 MLS/HR Allergies Allergies Allergies Coded Allergies Type Severity Reaction Last Updated Verified Penicillins Allergy Intermediate hives 01/19/17 Yes Sulfa (Sulfonamide Antibiotics) Allergy Intermediate hives 01/19/17 Yes potassium chloride Allergy Unknown 02/05/17 Yes Physical Exam Physical Exam Constitutional: Well developed, well nourished, no acute distress, non-toxic appearance. HENT: Normocephalic, atraumatic, bilateral external ears normal, oropharynx moist, no oral exudates, nose normal. [] Eyes: PERRLA, EOMI, conjunctiva normal, no discharge. Neck: Normal range of motion, no tenderness, supple, no stridor. [] Cardiovascular:Heart rate regular rhythm, no murmur Lungs & Thorax: Bilateral breath sounds clear to auscultation [] Abdomen: abd is soft and mildly tender in the left lower quadrant where previous ostomy reversal was performed. firm mass noted. no overlying cellulitis. mildly tender. Skin: Warm, dry, no erythema, no rash. Back: No tenderness, no CVA tenderness. [] Extremities: No tenderness, no cyanosis, no clubbing, ROM intact, no edema. Neurologic: Alert and oriented X 3, normal motor function, normal sensory function, no focal deficits noted. [] Psychologic: Affect normal, judgement normal, mood normal. [] Current Patient Data Vital Signs Vital Signs Date Time Temp Pulse Resp B/P Pulse Ox O2 Delivery O2 Flow Rate FiO2 02/05/17 19:20 100.1 86 18 121/64 93 Room Air 100.1 Lab Values Laboratory Tests Test 02/05/17 20:25 02/05/17 20:30 02/05/17 22:20 Urine Collection Type Unknown Urine Color Yellow Urine Clarity Cloudy Urine pH 7.5 Urine Specific [place] 1.025 Urine Protein 100mg/dL (NEG-TRACE) Urine Glucose (UA) Negativemg/dL (NEG) Urine Ketones (Stick) Tracemg/dL (NEG) Urine Blood Large (NEG) Urine Nitrite Positive (NEG) Urine Bilirubin Small (NEG) Urine Urobilinogen Dipstick 1.0mg/dL (0.2 mg/dL) Urine Leukocyte Esterase Moderate (NEG) Urine RBC >40/HPF (0-2) Urine WBC >40/HPF (0-4) Urine Squamous Epithelial Cells Few/LPF Urine Bacteria Moderate/HPF (0-FEW) Urine Mucus Mod/LPF White Blood Count 16.9x10^3/uL (4.0-11.0) H Red Blood Count 3.02x10^6/uL (3.50-5.40) L Hemoglobin 9.9g/dL (12.0-15.5) L Hematocrit 30.4% (36.0-47.0) L Mean Corpuscular Volume 101fL (79-100) H Mean Corpuscular Hemoglobin 33pg (25-35) Mean Corpuscular Hemoglobin Concent 33g/dL (31-37) Red Cell Distribution Width 14.0% (11.5-14.5) Platelet Count 412x10^3/uL (140-400) H Neutrophils (%) (Auto) 69% (31-73) Lymphocytes (%) (Auto) 20% (24-48) L Monocytes (%) (Auto) 7% (0-9) Eosinophils (%) (Auto) 3% (0-3) Basophils (%) (Auto) 1% (0-3) Neutrophils # (Auto) 11.7x10^3uL (1.8-7.7) H Lymphocytes # (Auto) 3.4x10^3/uL (1.0-4.8) Monocytes # (Auto) 1.2x10^3/uL (0.0-1.1) H Eosinophils # (Auto) 0.6x10^3/uL (0.0-0.7) Basophils # (Auto) 0.2x10^3/uL (0.0-0.2) Sodium Level 141mmol/L (136-145) Potassium Level 4.0mmol/L (3.5-5.1) Chloride Level 101mmol/L (98-107) Carbon Dioxide Level 33mmol/L (21-32) H Anion Gap 7 (6-14) Blood Urea Nitrogen 12mg/dL (7-20) Creatinine 0.7mg/dL (0.6-1.0) Estimated GFR (Cockcroft-Gault) 82.3 Glucose Level 93mg/dL (70-99) Calcium Level 8.9mg/dL (8.5-10.1) Total Bilirubin 0.5mg/dL (0.2-1.0) Direct Bilirubin 0.1mg/dL (0.0-0.2) Aspartate Amino Transferase (AST) 18U/L (15-37) Alanine Aminotransferase (ALT) 7U/L (14-59) L Alkaline Phosphatase 79U/L (46-116) Troponin I Quantitative < 0.017ng/mL (0.000-0.055) Total Protein 5.8g/dL (6.4-8.2) L Albumin 2.6g/dL (3.4-5.0) L Lipase 62U/L (73-393) L Lactic Acid Level 1.4mmol/L (0.4-2.0) Laboratory Tests 02/05/17 20:30 Laboratory Tests 02/05/17 20:30 EKG EKG [] Radiology/Procedures Radiology/Procedures [] Course & Med Decision Making Course & Med Decision Making Pertinent Labs and Imaging studies reviewed. (See chart for details) [] 72-year-old female presenting to the emergency department today with abdominal pain. Vital signs. Patient's temperature was 100.1. Pulse 86. Otherwise unremarkable. Pertinent physical exam shows firm mass in the left lower quadrant. mildly tender. no overlying cellulitis. IV established. CBC shows leukocytosis. Hemoglobin at 10. Urinalysis positive for urinary tract infection. Troponin negative. Lipase normal. CT abdomen and pelvis shows fluid collection possibly secondary to postsurgical changes, seroma. Likely not abscess. Patient's fluid collection is not warm to touch. There is no overlying cellulitis. Patient was given IV antibiotics, urine catheter was changed out for a new one, Patient was admitted to our hospital for further evaluation workup and care including surgical consultation. Dragon Disclaimer Dragon Disclaimer This electronic medical record was generated, in whole or in part, using a voice recognition dictation system. Departure Departure Impression: Primary Impression: LLQ abdominal pain Additional Impression: UTI (urinary tract infection) Disposition: ADMITTED INPATIENT Admitting Physician: Vic Anna Condition: STABLE Referrals: VIC ANNA MD (PCP) Problem Qualifiers NIMO EATON MD Feb 05, 2017 21:07
[2017-02-05] MEDS ORDERED: CONTRAST GIVEN MC PRN (21:15)
[2017-02-05] MEDS ORDERED: IOHEXOL 300 MG/ML 75 ML VIAL IV ONE (21:15)
[2017-02-05] MEDS ORDERED: IV NORMAL SALINE 500ML BAG 500 ML IV ONE (22:30)
--- NOTE | 2017-02-05 22:33 | RAD ---
INDICATION: Colostomy reverse 4 days ago, no bowel movement since. Left lower quadrant distension and mass. COMPARISON: None TECHNIQUE: Axial CT images obtained through the abdomen and pelvis following the intravenous administration of 75 cc of Omni 300. Coronal and sagittal reformats are provided. One or more of the following individualized dose reduction techniques were utilized for this examination: 1. Automated exposure control; 2. Adjustment of the mA and/or kV according to patient size; 3. Use of iterative reconstruction technique. FINDINGS: Left basilar atelectasis is present. There is beam hardening artifact through the upper abdomen secondary to spine hardware. The liver, pancreas, adrenal glands and bilateral kidneys demonstrate no focal abnormality. The gallbladder is surgically absent. The spleen is not visualized. The GI tract demonstrates no dilated bowel loops to suggest obstruction. Anastomotic suture is seen involving colon in the left abdomen. Formed fecal material is seen within the colon suggesting some degree of constipation. The urinary bladder is decompressed about a [place] catheter. No intra-abdominal or pelvic free fluid, free air or significant lymphadenopathy is seen. The aorta is normal in caliber. There is an 8.4 ovoid collection within the soft tissues overlying the left lower quadrant, with central fluid density and peripheral enhancement. Adjacent soft tissue stranding and overlying dermal thickening is present. Colonic and mastoid Modic suture is seen deep to this site, likely corresponding with the recent site of surgery. Visualized osseous structures demonstrate no acute finding. Significant postsurgical changes of the thoracolumbar spine are re-demonstrated, with posterior fusion including a T12 compression deformity. IMPRESSION: No acute intra-abdominal or pelvic process seen. Anastomotic bowel suture present in the left lower quadrant. Overlying collection in the anterior soft tissues over the left lower quadrant, with central fluid density and peripheral enhancement. This likely corresponds with the recent site of surgery, may represent a postsurgical fluid collection although abscess is not excluded. Electronically signed by: Chelsi Florentino (Feb 05, 2017 22:31:21)
[2017-02-05] MEDS ORDERED: ONDANSETRON PF 4 MG/2 ML VIAL. IV PRN (23:15)
[2017-02-05] MEDS ORDERED: MORPHINE SULFATE 2 MG/ML DISP.SYRIN. IV PRN (23:15)
[2017-02-06] VITALS (7 sets, daily range): BP systolic 110–147; BP diastolic 64–88
--- NOTE | 2017-02-06 00:04 | ACF ---
Admission Forms Criteria ABDOMINAL PAIN Clinical Indications for Admission to Inpatient Care (Place 'X' for any and all applicable criteria): Admission is indicated for ANY ONE of the following(1)(2)(3)(4)(5): [X]I. Inpatient admission required rather than observation care (Also use Abdominal Pain: Observation Care, as appropriate) because of ANY ONE of the following: [ ]a) Severe pain requiring acute inpatient management [ ]b) Identification of etiology/finding that requires inpatient care (eg, aortic dissection, free air) [ ]c) Absent bowel sounds with complete ileus(6) [ ]d) Suspected toxic megacolon [ ]e) Severe electrolyte abnormalities requiring inpatient care [X]f) High fever or infection requiring inpatient admission as indicated by ANY ONE of following(7)(8): [X] i) Appropriate outpatient or observational care antimicrobial treatment unavailable, not effective, or not feasible [ ] ii) Documented bacteremia [ ] iii) Temperature > 104.9 degrees F (oral) [ ] iv) T >103.1 F (oral) or < 96.8 F(rectal) that does not respond to all emergency treatment measures [ ]g) Signs of intestinal obstruction [B] [ ]h) Hemodynamic instability [ ]i) IV fluid to replace significant ongoing losses (greater than 3 L/m2 per day) (12)(13) [ ]j) Percutaneous or open drainage (eg, abscess, biliary tract ) procedures [ ]k) Parenteral nutrition regimen that must be implemented on inpatient basis [ ]l) Other condition,treatment or monitoring requiring inpatient admission. [ ]II. Peritoneal signs present [ ]III. Surgery needed that cannot be performed on an ambulatory basis. [ ]IV. Evaluation requires patient to not eat or drink for extended period ( eg, more than 24 hours). [ ]V. Contraindications and/or Inappropriate clinical situations for Observational Care in patients with abdominal pain, when ANY ONE of the following is required: [ ]a) Thorough evaluation is required to prevent catastrophic events due to delays in diagnosing (e.g.Mesenteric ischemia) 1,3 [ ]b) Patient with severe pathology or with chronic symptoms unlikely to improve in the ED stay (3) [ ]. General contraindications and/or Inappropriate clinical situations for Observational Care in patients with abdominal pain, when ANY ONE of the following is required: [ ]a) Prediction of prolongation of LOS based on ANY ONE of the following may be considered as a contraindication for observational care 2, 3, 4, 5, 6, 7, 8, 9, 10, 11 [ ]i) Age > 65 yrs. [ ]ii) Patient arriving by ambulance [ ]iii) Patient with high acuity [ ]iv) Patient requiring vital sign monitoring [ ]v) Patient on IV medication [ ]b) Systolic blood pressures 180mmHg 3,12 [ ]c) Patient with altered mental status including delirium and other alteration of consciousness, (3) [ ]d) Patient whose discharge disposition will be to a half-way home or rehabilitation home should not be managed in Emergency Department Observation Unit. CMS rule requires 3 days hospital stay before such placement.3,13 [ ]e) Patient with failure to thrive due to broad array of etiologies 3,16,17 [ ]f) Inability to ambulate 3,14 Extended stay beyond goal length of stay may be needed for(2)(3): [ ]a) Persistent abdominal pain with suspected intra-abdominal process [ ]b) Diagnosed condition requiring continued stay (e.g., pancreatitis, complicated diverticulitis) [ ]c) Surgery (e.g., colectomy) The original [employer] content created by [employer] has been revised. The portions of the content which have been revised are identified through the use of italic text or in bold, and [facility] has neither reviewed nor approved the modified material.All other unmodified content is copyright [employer]. Please see references footnoted in the original [employer] edition 2016 Admission Criteria Met?: Yes MINDY AVALOS Feb 06, 2017 00:04
[2017-02-06] MEDS ORDERED: HYDR-2762 PO (00:40)
[2017-02-06] MEDS ORDERED: LEVO75TA5 PO (00:47)
[2017-02-06] MEDS: ACETAMINOPHEN 500 MG TABLET PO PRN ×2 (01:18→10:38)
[2017-02-06] MEDS: IV NORMAL SALINE 1000ML BAG 1,000 ML IV SCH ×3 (01:18→10:38)
[2017-02-06 05:56] LABS: BASO # 0.1 x10^3/uL (0.0-0.2); BASO % 1 % (0-3); EOS % 3 % (0-3); HEMATOCRIT 27.3 % (36.0-47.0); HEMOGLOBIN 9.1 g/dL (12.0-15.5); LYMPH # 2.5 x10^3/uL (1.0-4.8); LYMPH % 15 % (24-48); MEAN CORPUSCULAR HEMOGLOBIN 33 pg (25-35); MEAN CORPUSCULAR HGB CONC 33 g/dL (31-37); MEAN CORPUSCULAR VOLUME 99 fL (79-100); MONO % 8 % (0-9); NEUT % 73 % (31-73); PLATELET COUNT 398 x10^3/uL (140-400); RED BLOOD COUNT 2.77 x10^6/uL (3.50-5.40); RED CELL DISTRIBUTION WIDTH 13.7 % (11.5-14.5); WHITE BLOOD COUNT 17.1 x10^3/uL (4.0-11.0)
[2017-02-06 06:13] LABS: CALCIUM 8.4 mg/dL (8.5-10.1); CREATININE 0.7 mg/dL (0.6-1.0); GFR 82.3; POTASSIUM 3.8 mmol/L (3.5-5.1)
--- NOTE | 2017-02-06 10:00 | PDOC2 ---
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 Reports Left sided abdominal pain and constipation for last several days. No nausea or emesis. Past Medical History CENTRAL NERVOUS SYSTEM: Other GI: GERD Musculoskeletal: Other Past Surgical History Past Surgical History: Other Family History Family History: Cancer Social History ALCOHOL: none Current Problem List Problem List Problems Medical Problems: (1) LLQ abdominal pain Status: Acute (2) UTI (urinary tract infection) Status: Acute Current Medications Current Medications Current Medications Polyethylene Glycol (miraLAX PACKET) 17 gm 1X ONCE PO Last administered on 21:11; Start 02/05/17 at 20:00; Stop 02/05/17 at 20:01; Status DC Sennosides (Senna) 8.6 mg 1X ONCE PO Last administered on 02/05/17 21:11; Start 02/05/17 at 20:00; Stop 02/05/17 at 20:01; Status DC Docusate Sodium (Colace) 100 mg 1X ONCE PO Last administered on 02/05/17 21: 11; Start 02/05/17 at 20:00; Stop 02/05/17 at 20:01; Status DC Docusate Sodium (Enemeez) 283 mg 1X ONCE VT Last administered on 02/05/17 21: 11; Start 02/05/17 at 20:00; Stop 02/05/17 at 20:01; Status DC Iohexol (Omnipaque 300 Mg/ml) 75 ml 1X ONCE IV Last administered on 02/05/17 21:33; Start 02/05/17 at 21:15; Stop 02/05/17 at 21:16; Status DC Info 1 each 1 each PRN DAILY PRN MC SEE COMMENTS; Start 02/05/17 at 21:15; Stop 02/07/17 at 21:14 Sodium Chloride 500 ml @ 500 mls/hr 1X ONCE IV Last administered on 22:53; Start 02/05/17 at 22:30; Stop 02/05/17 at 23:29; Status DC Levofloxacin/ Dextrose (LEVAQUIN 500mg PREMIX) 100 ml @ 100 mls/hr 1X ONCE IV Last administered on 02/05/17 22:53; Start 02/05/17 at 22:30; Stop 02/05/17 at 23:29; Status DC Ondansetron HCl (Zofran) 4 mg PRN Q8HRS PRN IV NAUSEA/VOMITING; Start 02/05/17 at 23:15; Stop 02/06/17 at 23:14 Morphine Sulfate 2 mg 2 mg PRN Q2HR PRN IV PAIN; Start 02/05/17 at 23:15; Stop 02/06/17 at 23:14 Sodium Chloride (Iv Sodium Chloride 0.9% 1000ml Bag) 1,000 ml @ 125 mls/hr Q8H IV Last administered on 02/06/17 01:18; Start 02/05/17 at 23:15; Stop at 23:14 Acetaminophen (Tylenol) 500 mg PRN Q6HRS PRN PO MILD PAIN / TEMP Last administered on 02/06/17 01:18; Start 02/06/17 at 01:00 Active Scripts Active Reported Levothyroxine Sodium 75 Mcg Tablet 1 Tab PO DAILY Hydrocodone-Apap 7.5-325 (Hydrocodone Bit/Acetaminophen) 1 Each Tablet 1 Tab PO TID 0800,1300,1700 Ranitidine Hcl 150 Mg Tablet 1 Tab PO BID Colace (Docusate Sodium) 100 Mg Capsule 1 Cap PO PRN DAILY PRN Tramadol Hcl 50 Mg Tablet 0.5 Tab PO TID Flomax (Tamsulosin Hcl) 0.4 Mg Cap.er.24h 1 Cap PO DAILY Sinemet 25-100 Mg Tablet (Carbidopa/Levodopa) 1 Each Tablet 1 Tab PO TID Fish Oil ([place]-3 Fatty Acids) 500 Mg Capsule.dr 1,000 Mg PO DAILY Vitamin D-3 (Cholecalciferol (Vitamin D3)) 2,000 Unit Capsule 2,000 Unit PO DAILY Cyclobenzaprine Hcl 10 Mg Tablet 1 Tab PO TID Clonazepam 1 Mg Tablet 1 Tab PO PRN DAILY PRN Hydrocodone-Apap 7.5-325 (Hydrocodone Bit/Acetaminophen) 1 Each Tablet 1-2 Tab PO Q4-6HRS PRN Gabapentin 300 Mg Capsule 300 Mg PO BID Vitamin E 1,000 Unit Capsule 1,000 Unit PO DAILY Requip (Ropinirole Hcl) 3 Mg Tablet 3 Mg PO TID Omeprazole 40 Mg Capsule.dr 40 Mg PO DAILY Celexa (Citalopram Hydrobromide) 20 Mg Tablet 20 Mg PO DAILY Allergies Allergies: Coded Allergies: Penicillins (Verified Allergy, Intermediate, hives, 01/19/17) Sulfa (Sulfonamide Antibiotics) (Verified Allergy, Intermediate, hives, ) potassium chloride (Verified Allergy, Unknown, 02/05/17) ROS General: No: Chills, Other (fevers) PSYCHOLOGICAL ROS: No: Anxiety, Depression Eyes: No Blurry vision, No Double vision HEENT: No: Heacaches, Sore Throat Hematological and Lymphatic: No: Bleeding Problems, Blood Clots Respiratory: No: Cough, Shortness of breath Cardiovascular: No Chest Pain, No Palpitations Gastrointestinal: Yes Other (see hpi) Genitourinary: YES Retention, No Dysuria Musculoskeletal: No Joint Pain Neurological: No Confusion, No Numbness/Tingling Skin: No Pruritus, No Rash Physical Exam General: Alert, Oriented X3, Cooperative, No acute distress HEENT: PERRLA, Mucous membr. moist/pink Lungs: Clear to auscultation, Normal air movement Heart: Regular rate, Normal S1, Normal S2, No murmurs Abdomen: Soft, Other (tenderness to colostomy takedown site, swelling to site( appears to be seroma), no signs of infection ) Extremities: No clubbing, No cyanosis Skin: No rashes, No breakdown Neuro: Normal speech, Sensation intact Psych/Mental Status: Mental status NL, Mood NL MUSCULOSKELETAL: No deformity, No swelling Vitals VITALS Vital Signs Date Time Temp Pulse Resp B/P Pulse Ox O2 Delivery O2 Flow Rate FiO2 02/06/17 07:00 99.1 96 18 141/88 93 Room Air 99.1 Labs Labs Laboratory Tests Test 02/05/17 20:25 02/05/17 20:30 02/05/17 22:20 02/06/17 05:00 Urine Collection Type Unknown Urine Color Yellow Urine Clarity Cloudy Urine pH 7.5 Urine Specific [place] 1.025 Urine Protein 100mg/dL (NEG-TRACE) Urine Glucose (UA) Negativemg/dL (NEG) Urine Ketones (Stick) Tracemg/dL (NEG) Urine Blood Large (NEG) Urine Nitrite Positive (NEG) Urine Bilirubin Small (NEG) Urine Urobilinogen Dipstick 1.0mg/dL (0.2 mg/dL) Urine Leukocyte Esterase Moderate (NEG) Urine RBC >40/HPF (0-2) Urine WBC >40/HPF (0-4) Urine Squamous Epithelial Cells Few/LPF Urine Bacteria Moderate/HPF (0-FEW) Urine Mucus Mod/LPF White Blood Count 16.9x10^3/uL (4.0-11.0) 17.1x10^3/uL (4.0-11.0) Red Blood Count 3.02x10^6/uL (3.50-5.40) 2.77x10^6/uL (3.50-5.40) Hemoglobin 9.9g/dL (12.0-15.5) 9.1g/dL (12.0-15.5) Hematocrit 30.4% (36.0-47.0) 27.3% (36.0-47.0) Mean Corpuscular Volume 101fL (79-100) 99fL (79-100) Mean Corpuscular Hemoglobin 33pg (25-35) 33pg (25-35) Mean Corpuscular Hemoglobin Concent 33g/dL (31-37) 33g/dL (31-37) Red Cell Distribution Width 14.0% (11.5-14.5) 13.7% (11.5-14.5) Platelet Count 412x10^3/uL (140-400) 398x10^3/uL (140-400) Neutrophils (%) (Auto) 69% (31-73) 73% (31-73) Lymphocytes (%) (Auto) 20% (24-48) 15% (24-48) Monocytes (%) (Auto) 7% (0-9) 8% (0-9) Eosinophils (%) (Auto) 3% (0-3) 3% (0-3) Basophils (%) (Auto) 1% (0-3) 1% (0-3) Neutrophils # (Auto) 11.7x10^3uL (1.8-7.7) 12.5x10^3uL (1.8-7.7) Lymphocytes # (Auto) 3.4x10^3/uL (1.0-4.8) 2.5x10^3/uL (1.0-4.8) Monocytes # (Auto) 1.2x10^3/uL (0.0-1.1) 1.4x10^3/uL (0.0-1.1) Eosinophils # (Auto) 0.6x10^3/uL (0.0-0.7) 0.5x10^3/uL (0.0-0.7) Basophils # (Auto) 0.2x10^3/uL (0.0-0.2) 0.1x10^3/uL (0.0-0.2) Sodium Level 141mmol/L (136-145) 141mmol/L (136-145) Potassium Level 4.0mmol/L (3.5-5.1) 3.8mmol/L (3.5-5.1) Chloride Level 101mmol/L (98-107) 103mmol/L (98-107) Carbon Dioxide Level 33mmol/L (21-32) 31mmol/L (21-32) Anion Gap 7 (6-14) 7 (6-14) Blood Urea Nitrogen 12mg/dL (7-20) 10mg/dL (7-20) Creatinine 0.7mg/dL (0.6-1.0) 0.7mg/dL (0.6-1.0) Estimated GFR (Cockcroft-Gault) 82.3 82.3 Glucose Level 93mg/dL (70-99) 90mg/dL (70-99) Calcium Level 8.9mg/dL (8.5-10.1) 8.4mg/dL (8.5-10.1) Total Bilirubin 0.5mg/dL (0.2-1.0) Direct Bilirubin 0.1mg/dL (0.0-0.2) Aspartate Amino Transf (AST/SGOT) 18U/L (15-37) Alanine Aminotransferase (ALT/SGPT) 7U/L (14-59) Alkaline Phosphatase 79U/L (46-116) Troponin I Quantitative < 0.017ng/mL (0.000-0.055) < 0.017ng/mL (0.000-0.055) Total Protein 5.8g/dL (6.4-8.2) Albumin 2.6g/dL (3.4-5.0) Lipase 62U/L (73-393) Lactic Acid Level 1.4mmol/L (0.4-2.0) Laboratory Tests Test 02/05/17 20:25 02/05/17 20:30 02/05/17 22:20 02/06/17 05:00 Urine Collection Type Unknown Urine Color Yellow Urine Clarity Cloudy Urine pH 7.5 Urine Specific [place] 1.025 Urine Protein 100mg/dL (NEG-TRACE) Urine Glucose (UA) Negativemg/dL (NEG) Urine Ketones (Stick) Tracemg/dL (NEG) Urine Blood Large (NEG) Urine Nitrite Positive (NEG) Urine Bilirubin Small (NEG) Urine Urobilinogen Dipstick 1.0mg/dL (0.2 mg/dL) Urine Leukocyte Esterase Moderate (NEG) Urine RBC >40/HPF (0-2) Urine WBC >40/HPF (0-4) Urine Squamous Epithelial Cells Few/LPF Urine Bacteria Moderate/HPF (0-FEW) Urine Mucus Mod/LPF White Blood Count 16.9x10^3/uL (4.0-11.0) 17.1x10^3/uL (4.0-11.0) Red Blood Count 3.02x10^6/uL (3.50-5.40) 2.77x10^6/uL (3.50-5.40) Hemoglobin 9.9g/dL (12.0-15.5) 9.1g/dL (12.0-15.5) Hematocrit 30.4% (36.0-47.0) 27.3% (36.0-47.0) Mean Corpuscular Volume 101fL (79-100) 99fL (79-100) Mean Corpuscular Hemoglobin 33pg (25-35) 33pg (25-35) Mean Corpuscular Hemoglobin Concent 33g/dL (31-37) 33g/dL (31-37) Red Cell Distribution Width 14.0% (11.5-14.5) 13.7% (11.5-14.5) Platelet Count 412x10^3/uL (140-400) 398x10^3/uL (140-400) Neutrophils (%) (Auto) 69% (31-73) 73% (31-73) Lymphocytes (%) (Auto) 20% (24-48) 15% (24-48) Monocytes (%) (Auto) 7% (0-9) 8% (0-9) Eosinophils (%) (Auto) 3% (0-3) 3% (0-3) Basophils (%) (Auto) 1% (0-3) 1% (0-3) Neutrophils # (Auto) 11.7x10^3uL (1.8-7.7) 12.5x10^3uL (1.8-7.7) Lymphocytes # (Auto) 3.4x10^3/uL (1.0-4.8) 2.5x10^3/uL (1.0-4.8) Monocytes # (Auto) 1.2x10^3/uL (0.0-1.1) 1.4x10^3/uL (0.0-1.1) Eosinophils # (Auto) 0.6x10^3/uL (0.0-0.7) 0.5x10^3/uL (0.0-0.7) Basophils # (Auto) 0.2x10^3/uL (0.0-0.2) 0.1x10^3/uL (0.0-0.2) Sodium Level 141mmol/L (136-145) 141mmol/L (136-145) Potassium Level 4.0mmol/L (3.5-5.1) 3.8mmol/L (3.5-5.1) Chloride Level 101mmol/L (98-107) 103mmol/L (98-107) Carbon Dioxide Level 33mmol/L (21-32) 31mmol/L (21-32) Anion Gap 7 (6-14) 7 (6-14) Blood Urea Nitrogen 12mg/dL (7-20) 10mg/dL (7-20) Creatinine 0.7mg/dL (0.6-1.0) 0.7mg/dL (0.6-1.0) Estimated GFR (Cockcroft-Gault) 82.3 82.3 Glucose Level 93mg/dL (70-99) 90mg/dL (70-99) Calcium Level 8.9mg/dL (8.5-10.1) 8.4mg/dL (8.5-10.1) Total Bilirubin 0.5mg/dL (0.2-1.0) Direct Bilirubin 0.1mg/dL (0.0-0.2) Aspartate Amino Transf (AST/SGOT) 18U/L (15-37) Alanine Aminotransferase (ALT/SGPT) 7U/L (14-59) Alkaline Phosphatase 79U/L (46-116) Troponin I Quantitative < 0.017ng/mL (0.000-0.055) < 0.017ng/mL (0.000-0.055) Total Protein 5.8g/dL (6.4-8.2) Albumin 2.6g/dL (3.4-5.0) Lipase 62U/L (73-393) Lactic Acid Level 1.4mmol/L (0.4-2.0) Images Images CT reviewed Assessment/Plan Assessment/Plan S/p colostomy takedown, seroma(no signs of infection) constipation--will add miralax uti--levaquin in ER, defer ongoing abx to pcp ISABEL MICHELE MD 02/06/17 2053: CONSULT Allergies Allergies: Coded Allergies: Penicillins (Verified Allergy, Intermediate, hives, 01/19/17) Sulfa (Sulfonamide Antibiotics) (Verified Allergy, Intermediate, hives, ) potassium chloride (Verified Allergy, Unknown, 02/05/17) Assessment/Plan Assessment/Plan Pt seen and examined. Agree with Ms. Arriola's note Pt reports feeling better, passing a lot of flatus and some stool abd soft, ND, NTTP, incision healing well cont supportive care no surgical plans Thanks for consult! BROOK ARRIOLA APRN Feb 06, 2017 10:00 ISABEL MICHELE MD Feb 06, 2017 20:53
[2017-02-06] MEDS: POLYETHYLENE GLYCOL 3350 17 GM PACKET. PO SCH (10:38)
--- NOTE | 2017-02-06 11:07 | EKG ---
[facility] [address] [place] [address] Test Date: 2017-02-05 Test Time: 20:19:47 Pat Name: ALLY MCINTYRE Department: Room: Gender: F Machine Builder: : 1945 Requested By: NIMO EATON Order Number: [id number] Reading MD: Measurements Intervals [place] Rate: 86 P: 36 [place]: 146 QRS: -4 QRSD: 76 T: 44 QT: 394 QTc: 475 Interpretive Statements SINUS RHYTHM LEFTWARD AXIS PROLONGED QT RI6.01 Unconfirmed report No previous ECG available for comparison
[2017-02-06] MEDS ORDERED: CLONAZEPAM 1 MG TABLET PO PRN (12:00)
[2017-02-06] MEDS: LEVOTHYROXINE 75 MCG TABLET PO SCH (12:53)
[2017-02-06] MEDS: rOPINIRole 1 MG TABLET. PO SCH ×2 (12:53→21:13)
[2017-02-06] MEDS: HYDROCODONE/APAP 7.5/325MG TABLET. PO SCH ×2 (12:53→21:14)
[2017-02-06] MEDS: CARBIDOPA/LEVODOPA 25/100MG TABLET PO SCH ×2 (12:53→21:13)
[2017-02-06] MEDS: DOCUSATE SODIUM 100 MG CAPSULE PO PRN (12:53)
[2017-02-06] MEDS: CHOLECALCIFEROL (VITAMIN D3) 1,000 UNIT TABLET PO SCH (12:54)
[2017-02-06] MEDS: TAMSULOSIN 0.4 MG CAP.ER.24H. PO SCH (12:54)
[2017-02-06] MEDS: CITALOPRAM 20 MG TABLET. PO SCH (12:54)
[2017-02-06] MEDS: GABAPENTIN 300 MG CAPSULE. PO SCH ×2 (12:54→21:13)
[2017-02-06] MEDS: PANTOPRAZOLE 40 MG TABLET. PO SCH (12:54)
--- NOTE | 2017-02-06 21:59 | PDOC ---
GENERAL General: see dictated H&P. Problems: VITAL SIGNS Vital Signs: Vital Signs Date Time Temp Pulse Resp B/P Pulse Ox O2 Delivery O2 Flow Rate FiO2 02/06/17 21:14 14 Room Air 02/06/17 19:41 98.2 89 121/78 94 98.2 I & O I & O Intake and Output 02/06/17 07:00 Intake Total 350 ml Balance 350 ml IV Total 350 ml ALLERGIES Allergies: Allergies Coded Allergies Type Severity Reaction Last Updated Verified Penicillins Allergy Intermediate hives 01/19/17 Yes Sulfa (Sulfonamide Antibiotics) Allergy Intermediate hives 01/19/17 Yes potassium chloride Allergy Unknown 02/05/17 Yes MEDS Medications: Current Medications Medications (Trade) Dose Ordered Sig/[place] Start Time Stop Time Status Last Admin Dose Admin Acetaminophen (Tylenol) 500 mg PRN Q6HRS PRN 02/06/17 01:00 02/06/17 10:38 500 MG Acetaminophen/ Hydrocodone Bitart (Lortab 7.5/325) 1 tab PRN Q4HRS PRN 02/06/17 12:00 Carbidopa/Levodopa (Sinemet 25/100) 1 tab TID 02/06/17 14:00 02/06/17 21:13 1 TAB Citalopram Hydrobromide (Celexa) 20 mg DAILY 02/06/17 13:00 02/06/17 12:54 20 MG Clonazepam (Klonopin) 2 mg PRN DAILY PRN 02/06/17 12:00 Docusate Sodium (Colace) 100 mg PRN DAILY PRN 02/06/17 12:00 02/06/17 12:53 100 MG Docusate Sodium (Enemeez) 283 mg 1X ONCE 02/05/17 20:00 02/05/17 20:01 DC 02/05/17 21:11 283 MG Gabapentin (Neurontin) 300 mg BID 02/06/17 13:00 02/06/17 21:13 300 MG Info 1 each 1 each PRN DAILY PRN 02/05/17 21:15 02/07/17 21:14 Iohexol (Omnipaque 300 Mg/ml) 75 ml 1X ONCE 02/05/17 21:15 02/05/17 21:16 DC 02/05/17 21:33 75 ML Levofloxacin/ Dextrose (LEVAQUIN 500mg PREMIX) 100 ml @ 100 mls/hr Q24H 02/06/17 21:00 02/06/17 21:14 100 MLS/HR Levothyroxine Sodium (Synthroid) 75 mcg DAILY07 02/06/17 13:00 02/06/17 12:53 75 MCG Morphine Sulfate 2 mg 2 mg PRN Q2HR PRN 02/05/17 23:15 02/06/17 23:14 Ondansetron HCl (Zofran) 4 mg PRN Q8HRS PRN 02/05/17 23:15 02/06/17 23:14 Pantoprazole Sodium (Protonix) 40 mg DAILYAC 02/06/17 13:00 02/06/17 12:54 40 MG Polyethylene Glycol (miraLAX PACKET) 17 gm DAILY 02/06/17 11:00 02/06/17 10:38 17 GM Ropinirole HCl 3 mg 3 mg TID 02/06/17 14:00 02/06/17 21:13 3 MG Sennosides (Senna) 8.6 mg 1X ONCE 02/05/17 20:00 02/05/17 20:01 DC 02/05/17 21:11 8.6 MG Sodium Chloride (Iv Sodium Chloride 0.9% 500ml Bag) 500 ml @ 500 mls/hr 1X ONCE 02/05/17 22:30 02/05/17 23:29 DC 02/05/17 22:53 500 MLS/HR Sodium Chloride (Iv Sodium Chloride 0.9% 1000ml Bag) 1,000 ml @ 125 mls/hr Q8H 02/05/17 23:15 02/06/17 23:14 02/06/17 10:38 125 MLS/HR Tamsulosin HCl (Flomax) 0.4 mg DAILY 02/06/17 13:00 02/06/17 12:54 0.4 MG Vitamin D (Vitamin D3) 2,000 unit DAILY 02/06/17 13:00 02/06/17 12:54 2,000 UNIT LAB Lab: Laboratory Tests Test 02/05/17 22:20 02/06/17 05:00 02/06/17 11:29 Lactic Acid Level 1.4mmol/L (0.4-2.0) White Blood Count 17.1x10^3/uL (4.0-11.0) Red Blood Count 2.77x10^6/uL (3.50-5.40) Hemoglobin 9.1g/dL (12.0-15.5) Hematocrit 27.3% (36.0-47.0) Mean Corpuscular Volume 99fL (79-100) Mean Corpuscular Hemoglobin 33pg (25-35) Mean Corpuscular Hemoglobin Concent 33g/dL (31-37) Red Cell Distribution Width 13.7% (11.5-14.5) Platelet Count 398x10^3/uL (140-400) Neutrophils (%) (Auto) 73% (31-73) Lymphocytes (%) (Auto) 15% (24-48) Monocytes (%) (Auto) 8% (0-9) Eosinophils (%) (Auto) 3% (0-3) Basophils (%) (Auto) 1% (0-3) Neutrophils # (Auto) 12.5x10^3uL (1.8-7.7) Lymphocytes # (Auto) 2.5x10^3/uL (1.0-4.8) Monocytes # (Auto) 1.4x10^3/uL (0.0-1.1) Eosinophils # (Auto) 0.5x10^3/uL (0.0-0.7) Basophils # (Auto) 0.1x10^3/uL (0.0-0.2) Sodium Level 141mmol/L (136-145) Potassium Level 3.8mmol/L (3.5-5.1) Chloride Level 103mmol/L (98-107) Carbon Dioxide Level 31mmol/L (21-32) Anion Gap 7 (6-14) Blood Urea Nitrogen 10mg/dL (7-20) Creatinine 0.7mg/dL (0.6-1.0) Estimated GFR (Cockcroft-Gault) 82.3 Glucose Level 90mg/dL (70-99) Calcium Level 8.4mg/dL (8.5-10.1) Troponin I Quantitative < 0.017ng/mL (0.000-0.055) < 0.017ng/mL (0.000-0.055) SINDY MONTGOMERY MD Feb 06, 2017 21:59
--- NOTE | 2017-02-06 23:51 | HP ---
ADMIT DATE: 02/05/2017 CHIEF COMPLAINT AND HISTORY OF PRESENT ILLNESS: This 72-year-old white female, a patient of Dr. Vic Anna, presented to the Emergency Room with abdominal pain. Pain was sharp, predominantly left lower quadrant associated with lack of bowel movement. She denies any urinary symptoms, fevers or chills with it. It has been present for greater than a week. She was recently status post takedown of her colostomy with reanastomosis within the last week or so in addition. She was found to have a urinary tract infection in the Emergency Room as well as fluid collection, left lower abdomen, which was felt to be probably more related to recent surgery, but abscess cannot be excluded. She did have leukocytosis present and was admitted with a dose of Levaquin given in the Emergency Room. PAST MEDICAL HISTORY: Remarkable for Parkinson's disease, constipation, anxiety, depression, fibromyalgia, GERD, hypothyroidism, possible dementia. She has a history of urinary retention, restless legs syndrome. PAST SURGICAL HISTORY: Cholecystectomy, hysterectomy, knee replacement, meniscus repair, the colostomy, carpal tunnel surgery, breast biopsy, 3 back surgeries. MEDICATIONS: Brought with the patient, listed on the computer and have been addressed. ALLERGIES: SHE IS ALLERGIC TO PENICILLIN, SULFA AND POTASSIUM. SOCIAL HISTORY AND FAMILY HISTORY: Noncontributory. REVIEW OF SYSTEMS: As mentioned above. PHYSICAL EXAMINATION: GENERAL: She is a well-developed, well-nourished, pleasant white female sitting with her , appears to be in no severe distress. VITAL SIGNS: Stable. She is afebrile. HEAD, EYES, EARS, NOSE AND THROAT: Unremarkable. NECK: Supple without bruit, thyromegaly. CHEST: Clear to auscultation and percussion. HEART: Regular rate and rhythm without S3, S4 or murmur. ABDOMEN: Soft. There is some tenderness over the left lower quadrant surgical site. There is some firmness of the incision, but not overly so and no evidence of cellulitis. EXTREMITIES: Without cyanosis, clubbing or edema. NEUROLOGIC: She is intact. LABORATORY DATA: Urine looks very suspicious for urinary tract infection. White count is 16,900, hemoglobin is 9.9, platelet count is 412,000. Electrolytes are unremarkable. BUN and creatinine are normal. Glucose is normal. Liver function tests appear within normal limits. Troponin is negative as well as lipase and lactic acid levels. IMPRESSION: Abdominal pain with constipation and urinary tract infection and leukocytosis and the patient recently postop as described above. PLAN: The patient has been admitted. Surgery has been consulted. Antibiotics will be continued. Urine is being cultured and the patient will be monitored, managed and treated appropriately. SINDY MONTGOMERY MD DR: ELOINA/klarissa JOB#: [id number] / [id number]
[2017-02-07 03:33] VITALS: BP 113/66
[2017-02-07 05:42] LABS: BASO # 0.1 x10^3/uL (0.0-0.2); BASO % 1 % (0-3); EOS % 3 % (0-3); HEMATOCRIT 28.2 % (36.0-47.0); HEMOGLOBIN 9.3 g/dL (12.0-15.5); LYMPH # 2.8 x10^3/uL (1.0-4.8); LYMPH % 16 % (24-48); MEAN CORPUSCULAR HEMOGLOBIN 33 pg (25-35); MEAN CORPUSCULAR HGB CONC 33 g/dL (31-37); MEAN CORPUSCULAR VOLUME 101 fL (79-100); MONO % 8 % (0-9); NEUT % 72 % (31-73); PLATELET COUNT 416 x10^3/uL (140-400); RED BLOOD COUNT 2.81 x10^6/uL (3.50-5.40); WHITE BLOOD COUNT 17.1 x10^3/uL (4.0-11.0)
[2017-02-07 06:06] LABS: ALBUMIN 2.1 g/dL (3.4-5.0); ALBUMIN/GLOBULIN RATIO 0.5 (1.0-1.7); CALCIUM 8.5 mg/dL (8.5-10.1); CREATININE 0.7 mg/dL (0.6-1.0); GFR 82.3; POTASSIUM 3.7 mmol/L (3.5-5.1); TOTAL BILIRUBIN 0.6 mg/dL (0.2-1.0)
[2017-02-07 07:00] VITALS: BP 125/74
[2017-02-07] MEDS: LEVOTHYROXINE 75 MCG TABLET PO SCH (07:49)
[2017-02-07] MEDS: PANTOPRAZOLE 40 MG TABLET. PO SCH (08:01)
[2017-02-07] MEDS ORDERED: BISACODYL 10 MG SUPP.RECT PR PRN (09:15)
--- NOTE | 2017-02-07 09:18 | PDOC ---
BROOK ARRIOLA SUPERVISOR DIAGNOSTIC 02/07/17 0918: SURGICAL PROGRESS NOTE Subjective confusion, asking about the dog that is with me nurse reports she has been seeing things not there since yesterday afternoon she does report some pain to LLQ tolerating her breakfast Vital Signs Vital Signs Date Time Temp Pulse Resp B/P Pulse Ox O2 Delivery O2 Flow Rate FiO2 02/07/17 03:33 98.6 91 18 113/66 93 Room Air 98.6 I&O Intake and Output 02/07/17 07:00 Intake Total 1230 ml Output Total 4150 ml Balance -2920 ml Intake Oral 230 ml IV Total 1000 ml Output Urine Total 4150 ml # Voids 2 General: Alert, Oriented X3, Cooperative, No acute distress Abdomen: Soft, Other (incision healing, seroma ) Labs Laboratory Tests Test 02/05/17 20:25 02/05/17 20:30 02/05/17 22:20 02/06/17 05:00 Urine Collection Type Unknown Urine Color Yellow Urine Clarity Cloudy Urine pH 7.5 Urine Specific [place] 1.025 Urine Protein 100mg/dL (NEG-TRACE) Urine Glucose (UA) Negativemg/dL (NEG) Urine Ketones (Stick) Tracemg/dL (NEG) Urine Blood Large (NEG) Urine Nitrite Positive (NEG) Urine Bilirubin Small (NEG) Urine Urobilinogen Dipstick 1.0mg/dL (0.2 mg/dL) Urine Leukocyte Esterase Moderate (NEG) Urine RBC >40/HPF (0-2) Urine WBC >40/HPF (0-4) Urine Squamous Epithelial Cells Few/LPF Urine Bacteria Moderate/HPF (0-FEW) Urine Mucus Mod/LPF White Blood Count 16.9x10^3/uL (4.0-11.0) 17.1x10^3/uL (4.0-11.0) Red Blood Count 3.02x10^6/uL (3.50-5.40) 2.77x10^6/uL (3.50-5.40) Hemoglobin 9.9g/dL (12.0-15.5) 9.1g/dL (12.0-15.5) Hematocrit 30.4% (36.0-47.0) 27.3% (36.0-47.0) Mean Corpuscular Volume 101fL (79-100) 99fL (79-100) Mean Corpuscular Hemoglobin 33pg (25-35) 33pg (25-35) Mean Corpuscular Hemoglobin Concent 33g/dL (31-37) 33g/dL (31-37) Red Cell Distribution Width 14.0% (11.5-14.5) 13.7% (11.5-14.5) Platelet Count 412x10^3/uL (140-400) 398x10^3/uL (140-400) Neutrophils (%) (Auto) 69% (31-73) 73% (31-73) Lymphocytes (%) (Auto) 20% (24-48) 15% (24-48) Monocytes (%) (Auto) 7% (0-9) 8% (0-9) Eosinophils (%) (Auto) 3% (0-3) 3% (0-3) Basophils (%) (Auto) 1% (0-3) 1% (0-3) Neutrophils # (Auto) 11.7x10^3uL (1.8-7.7) 12.5x10^3uL (1.8-7.7) Lymphocytes # (Auto) 3.4x10^3/uL (1.0-4.8) 2.5x10^3/uL (1.0-4.8) Monocytes # (Auto) 1.2x10^3/uL (0.0-1.1) 1.4x10^3/uL (0.0-1.1) Eosinophils # (Auto) 0.6x10^3/uL (0.0-0.7) 0.5x10^3/uL (0.0-0.7) Basophils # (Auto) 0.2x10^3/uL (0.0-0.2) 0.1x10^3/uL (0.0-0.2) Sodium Level 141mmol/L (136-145) 141mmol/L (136-145) Potassium Level 4.0mmol/L (3.5-5.1) 3.8mmol/L (3.5-5.1) Chloride Level 101mmol/L (98-107) 103mmol/L (98-107) Carbon Dioxide Level 33mmol/L (21-32) 31mmol/L (21-32) Anion Gap 7 (6-14) 7 (6-14) Blood Urea Nitrogen 12mg/dL (7-20) 10mg/dL (7-20) Creatinine 0.7mg/dL (0.6-1.0) 0.7mg/dL (0.6-1.0) Estimated GFR (Cockcroft-Gault) 82.3 82.3 Glucose Level 93mg/dL (70-99) 90mg/dL (70-99) Calcium Level 8.9mg/dL (8.5-10.1) 8.4mg/dL (8.5-10.1) Total Bilirubin 0.5mg/dL (0.2-1.0) Direct Bilirubin 0.1mg/dL (0.0-0.2) Aspartate Amino Transf (AST/SGOT) 18U/L (15-37) Alanine Aminotransferase (ALT/SGPT) 7U/L (14-59) Alkaline Phosphatase 79U/L (46-116) Troponin I Quantitative < 0.017ng/mL (0.000-0.055) < 0.017ng/mL (0.000-0.055) Total Protein 5.8g/dL (6.4-8.2) Albumin 2.6g/dL (3.4-5.0) Lipase 62U/L (73-393) Lactic Acid Level 1.4mmol/L (0.4-2.0) Test 02/06/17 11:29 02/07/17 05:12 Troponin I Quantitative < 0.017ng/mL (0.000-0.055) White Blood Count 17.1x10^3/uL (4.0-11.0) Red Blood Count 2.81x10^6/uL (3.50-5.40) Hemoglobin 9.3g/dL (12.0-15.5) Hematocrit 28.2% (36.0-47.0) Mean Corpuscular Volume 101fL (79-100) Mean Corpuscular Hemoglobin 33pg (25-35) Mean Corpuscular Hemoglobin Concent 33g/dL (31-37) Red Cell Distribution Width 14.0% (11.5-14.5) Platelet Count 416x10^3/uL (140-400) Neutrophils (%) (Auto) 72% (31-73) Lymphocytes (%) (Auto) 16% (24-48) Monocytes (%) (Auto) 8% (0-9) Eosinophils (%) (Auto) 3% (0-3) Basophils (%) (Auto) 1% (0-3) Neutrophils # (Auto) 12.4x10^3uL (1.8-7.7) Lymphocytes # (Auto) 2.8x10^3/uL (1.0-4.8) Monocytes # (Auto) 1.4x10^3/uL (0.0-1.1) Eosinophils # (Auto) 0.5x10^3/uL (0.0-0.7) Basophils # (Auto) 0.1x10^3/uL (0.0-0.2) Sodium Level 141mmol/L (136-145) Potassium Level 3.7mmol/L (3.5-5.1) Chloride Level 105mmol/L (98-107) Carbon Dioxide Level 29mmol/L (21-32) Anion Gap 7 (6-14) Blood Urea Nitrogen 6mg/dL (7-20) Creatinine 0.7mg/dL (0.6-1.0) Estimated GFR (Cockcroft-Gault) 82.3 BUN/Creatinine Ratio 9 (6-20) Glucose Level 98mg/dL (70-99) Calcium Level 8.5mg/dL (8.5-10.1) Total Bilirubin 0.6mg/dL (0.2-1.0) Aspartate Amino Transf (AST/SGOT) 16U/L (15-37) Alanine Aminotransferase (ALT/SGPT) 7U/L (14-59) Alkaline Phosphatase 75U/L (46-116) Total Protein 6.0g/dL (6.4-8.2) Albumin 2.1g/dL (3.4-5.0) Albumin/Globulin Ratio 0.5 (1.0-1.7) Laboratory Tests Test 02/06/17 11:29 02/07/17 05:12 Troponin I Quantitative < 0.017ng/mL (0.000-0.055) White Blood Count 17.1x10^3/uL (4.0-11.0) Red Blood Count 2.81x10^6/uL (3.50-5.40) Hemoglobin 9.3g/dL (12.0-15.5) Hematocrit 28.2% (36.0-47.0) Mean Corpuscular Volume 101fL (79-100) Mean Corpuscular Hemoglobin 33pg (25-35) Mean Corpuscular Hemoglobin Concent 33g/dL (31-37) Red Cell Distribution Width 14.0% (11.5-14.5) Platelet Count 416x10^3/uL (140-400) Neutrophils (%) (Auto) 72% (31-73) Lymphocytes (%) (Auto) 16% (24-48) Monocytes (%) (Auto) 8% (0-9) Eosinophils (%) (Auto) 3% (0-3) Basophils (%) (Auto) 1% (0-3) Neutrophils # (Auto) 12.4x10^3uL (1.8-7.7) Lymphocytes # (Auto) 2.8x10^3/uL (1.0-4.8) Monocytes # (Auto) 1.4x10^3/uL (0.0-1.1) Eosinophils # (Auto) 0.5x10^3/uL (0.0-0.7) Basophils # (Auto) 0.1x10^3/uL (0.0-0.2) Sodium Level 141mmol/L (136-145) Potassium Level 3.7mmol/L (3.5-5.1) Chloride Level 105mmol/L (98-107) Carbon Dioxide Level 29mmol/L (21-32) Anion Gap 7 (6-14) Blood Urea Nitrogen 6mg/dL (7-20) Creatinine 0.7mg/dL (0.6-1.0) Estimated GFR (Cockcroft-Gault) 82.3 BUN/Creatinine Ratio 9 (6-20) Glucose Level 98mg/dL (70-99) Calcium Level 8.5mg/dL (8.5-10.1) Total Bilirubin 0.6mg/dL (0.2-1.0) Aspartate Amino Transf (AST/SGOT) 16U/L (15-37) Alanine Aminotransferase (ALT/SGPT) 7U/L (14-59) Alkaline Phosphatase 75U/L (46-116) Total Protein 6.0g/dL (6.4-8.2) Albumin 2.1g/dL (3.4-5.0) Albumin/Globulin Ratio 0.5 (1.0-1.7) Problem List Problems Medical Problems: (1) LLQ abdominal pain Status: Acute (2) UTI (urinary tract infection) Status: Acute Assessment/Plan constipation, no stool per nurse--ordered suppository confusion, UTI--per PCP Problems: ISABEL MICHELE MD 02/07/17 1630: SURGICAL PROGRESS NOTE Assessment/Plan Pt resting comfortably cont supportive care no surgical plans Problems: BROOK ARRIOLA APRN Feb 07, 2017 09:18 ISABEL MICHELE MD Feb 07, 2017 16:30
[2017-02-07] MEDS: GABAPENTIN 300 MG CAPSULE. PO SCH ×2 (09:20→21:01)
[2017-02-07] MEDS: DOCUSATE SODIUM 100 MG CAPSULE PO PRN (09:20)
[2017-02-07] MEDS: CHOLECALCIFEROL (VITAMIN D3) 1,000 UNIT TABLET PO SCH (09:20)
[2017-02-07] MEDS: CARBIDOPA/LEVODOPA 25/100MG TABLET PO SCH ×3 (09:20→21:01)
[2017-02-07] MEDS: POLYETHYLENE GLYCOL 3350 17 GM PACKET. PO SCH (09:20)
[2017-02-07] MEDS: HYDROCODONE/APAP 7.5/325MG TABLET. PO SCH ×3 (09:20→21:02)
[2017-02-07] MEDS: CITALOPRAM 20 MG TABLET. PO SCH (09:20)
[2017-02-07] MEDS: TAMSULOSIN 0.4 MG CAP.ER.24H. PO SCH (09:20)
[2017-02-07] MEDS: rOPINIRole 1 MG TABLET. PO SCH ×3 (09:21→21:01)
[2017-02-07 11:00] VITALS: BP 104/64
--- NOTE | 2017-02-07 11:00 | PDOC ---
GENERAL General: vss and tmax of 100.9. confused this am and more so per nursing after clonopin and will dc same. exam stable. wbc still 17K. gram negative rods on urine culture with no ID or sensitivities available. continue iv levaquin. no bm to date. surgical help appreciated. Problems: VITAL SIGNS Vital Signs: Vital Signs Date Time Temp Pulse Resp B/P Pulse Ox O2 Delivery O2 Flow Rate FiO2 02/07/17 07:00 97.6 94 16 125/74 99 Room Air 97.6 I & O I & O Intake and Output 02/07/17 07:00 Intake Total 1230 ml Output Total 4150 ml Balance -2920 ml Intake Oral 230 ml IV Total 1000 ml Output Urine Total 4150 ml # Voids 2 ALLERGIES Allergies: Allergies Coded Allergies Type Severity Reaction Last Updated Verified Penicillins Allergy Intermediate hives 01/19/17 Yes Sulfa (Sulfonamide Antibiotics) Allergy Intermediate hives 01/19/17 Yes potassium chloride Allergy Unknown 02/05/17 Yes MEDS Medications: Current Medications Medications (Trade) Dose Ordered Sig/[place] Start Time Stop Time Status Last Admin Dose Admin Acetaminophen (Tylenol) 500 mg PRN Q6HRS PRN 02/06/17 01:00 02/06/17 10:38 500 MG Acetaminophen/ Hydrocodone Bitart (Lortab 7.5/325) 1 tab PRN Q4HRS PRN 02/06/17 12:00 Bisacodyl 10 mg 10 mg PRN DAILY PRN 02/07/17 09:15 Carbidopa/Levodopa (Sinemet 25/100) 1 tab TID 02/06/17 14:00 02/07/17 09:20 1 TAB Citalopram Hydrobromide (Celexa) 20 mg DAILY 02/06/17 13:00 02/07/17 09:20 20 MG Clonazepam (Klonopin) 2 mg PRN DAILY PRN 02/06/17 12:00 02/07/17 08:01 2 MG Docusate Sodium (Colace) 100 mg PRN DAILY PRN 02/06/17 12:00 02/07/17 09:20 100 MG Docusate Sodium (Enemeez) 283 mg 1X ONCE 02/05/17 20:00 02/05/17 20:01 DC 02/05/17 21:11 283 MG Gabapentin (Neurontin) 300 mg BID 02/06/17 13:00 02/07/17 09:20 300 MG Info 1 each 1 each PRN DAILY PRN 02/05/17 21:15 02/07/17 21:14 Iohexol (Omnipaque 300 Mg/ml) 75 ml 1X ONCE 02/05/17 21:15 02/05/17 21:16 DC 02/05/17 21:33 75 ML Levofloxacin/ Dextrose (LEVAQUIN 250mg PREMIX) 50 ml @ 50 mls/hr Q24H 02/07/17 21:00 Levofloxacin/ Dextrose (LEVAQUIN 500mg PREMIX) 100 ml @ 100 mls/hr Q24H 02/06/17 21:00 02/07/17 09:29 DC 02/06/17 21:14 100 MLS/HR Levothyroxine Sodium (Synthroid) 75 mcg DAILY07 02/06/17 13:00 02/07/17 07:49 75 MCG Morphine Sulfate 2 mg 2 mg PRN Q2HR PRN 02/05/17 23:15 02/06/17 23:14 DC Ondansetron HCl (Zofran) 4 mg PRN Q8HRS PRN 02/05/17 23:15 02/06/17 23:14 DC Pantoprazole Sodium (Protonix) 40 mg DAILYAC 02/06/17 13:00 02/07/17 08:01 40 MG Polyethylene Glycol (miraLAX PACKET) 17 gm DAILY 02/06/17 11:00 02/07/17 09:20 17 GM Ropinirole HCl 3 mg 3 mg TID 02/06/17 14:00 02/07/17 09:21 3 MG Sennosides (Senna) 8.6 mg 1X ONCE 02/05/17 20:00 02/05/17 20:01 DC 02/05/17 21:11 8.6 MG Sodium Chloride (Iv Sodium Chloride 0.9% 500ml Bag) 500 ml @ 500 mls/hr 1X ONCE 02/05/17 22:30 02/05/17 23:29 DC 02/05/17 22:53 500 MLS/HR Sodium Chloride (Iv Sodium Chloride 0.9% 1000ml Bag) 1,000 ml @ 125 mls/hr Q8H 02/05/17 23:15 3/11/17 23:14 DC 02/06/17 10:38 125 MLS/HR Tamsulosin HCl (Flomax) 0.4 mg DAILY 02/06/17 13:00 02/07/17 09:20 0.4 MG Vitamin D (Vitamin D3) 2,000 unit DAILY 02/06/17 13:00 02/07/17 09:20 2,000 UNIT LAB Lab: Laboratory Tests Test 02/06/17 11:29 02/07/17 05:12 Troponin I Quantitative < 0.017ng/mL (0.000-0.055) White Blood Count 17.1x10^3/uL (4.0-11.0) Red Blood Count 2.81x10^6/uL (3.50-5.40) Hemoglobin 9.3g/dL (12.0-15.5) Hematocrit 28.2% (36.0-47.0) Mean Corpuscular Volume 101fL (79-100) Mean Corpuscular Hemoglobin 33pg (25-35) Mean Corpuscular Hemoglobin Concent 33g/dL (31-37) Red Cell Distribution Width 14.0% (11.5-14.5) Platelet Count 416x10^3/uL (140-400) Neutrophils (%) (Auto) 72% (31-73) Lymphocytes (%) (Auto) 16% (24-48) Monocytes (%) (Auto) 8% (0-9) Eosinophils (%) (Auto) 3% (0-3) Basophils (%) (Auto) 1% (0-3) Neutrophils # (Auto) 12.4x10^3uL (1.8-7.7) Lymphocytes # (Auto) 2.8x10^3/uL (1.0-4.8) Monocytes # (Auto) 1.4x10^3/uL (0.0-1.1) Eosinophils # (Auto) 0.5x10^3/uL (0.0-0.7) Basophils # (Auto) 0.1x10^3/uL (0.0-0.2) Sodium Level 141mmol/L (136-145) Potassium Level 3.7mmol/L (3.5-5.1) Chloride Level 105mmol/L (98-107) Carbon Dioxide Level 29mmol/L (21-32) Anion Gap 7 (6-14) Blood Urea Nitrogen 6mg/dL (7-20) Creatinine 0.7mg/dL (0.6-1.0) Estimated GFR (Cockcroft-Gault) 82.3 BUN/Creatinine Ratio 9 (6-20) Glucose Level 98mg/dL (70-99) Calcium Level 8.5mg/dL (8.5-10.1) Total Bilirubin 0.6mg/dL (0.2-1.0) Aspartate Amino Transf (AST/SGOT) 16U/L (15-37) Alanine Aminotransferase (ALT/SGPT) 7U/L (14-59) Alkaline Phosphatase 75U/L (46-116) Total Protein 6.0g/dL (6.4-8.2) Albumin 2.1g/dL (3.4-5.0) Albumin/Globulin Ratio 0.5 (1.0-1.7) SINDY MONTGOMERY MD Feb 07, 2017 11:00
[2017-02-07 15:00] VITALS: BP 105/67
[2017-02-07 19:52] VITALS: BP 102/68
[2017-02-07 23:08] VITALS: BP 115/75
[2017-02-08 03:17] VITALS: BP 114/70
[2017-02-08] MEDS: LEVOTHYROXINE 75 MCG TABLET PO SCH (06:28)
[2017-02-08 07:00] VITALS: BP 119/70
[2017-02-08] MEDS: POLYETHYLENE GLYCOL 3350 17 GM PACKET. PO SCH (08:21)
[2017-02-08] MEDS: CHOLECALCIFEROL (VITAMIN D3) 1,000 UNIT TABLET PO SCH (08:21)
[2017-02-08] MEDS: GABAPENTIN 300 MG CAPSULE. PO SCH ×2 (08:21→20:48)
[2017-02-08] MEDS: rOPINIRole 1 MG TABLET. PO SCH ×3 (08:21→20:48)
[2017-02-08] MEDS: TAMSULOSIN 0.4 MG CAP.ER.24H. PO SCH (08:22)
[2017-02-08] MEDS: CITALOPRAM 20 MG TABLET. PO SCH (08:22)
[2017-02-08] MEDS: CARBIDOPA/LEVODOPA 25/100MG TABLET PO SCH ×3 (08:22→20:48)
[2017-02-08] MEDS: PANTOPRAZOLE 40 MG TABLET. PO SCH (08:22)
[2017-02-08] MEDS: HYDROCODONE/APAP 7.5/325MG TABLET. PO SCH (08:22)
--- NOTE | 2017-02-08 08:37 | PDOC ---
Provider Note Provider Note vss, no temp- on levo pending urine cult- labs ok but difuuse audible wheeze- add duoneb/cxr SHALONDA CARO MD Feb 08, 2017 08:37
[2017-02-08 11:00] VITALS: BP 104/64
[2017-02-08] MEDS: IPRATRPIUM/ALBUTEROL 0.5/2.5MG 3 ML NEBU. NEB SCH ×3 (11:45→20:57)
--- NOTE | 2017-02-08 11:47 | PDOC ---
Provider Note Provider Note denies abd pain. farooq po +flatus. she is unsure if she is passing stool afeb vss abd soft nd nt inc healing, some induration, no fluctuance, no drainage a/p cont to observe wound. no obvious infection at this time. ORVILLE SOLOMON MD Feb 08, 2017 11:47
--- NOTE | 2017-02-08 12:56 | RAD ---
Chest, 2 views, 02/08/2017: History: Wheezing Comparison is made to a study from 04/14/2016. The patient is rotated to the left on the frontal view. The heart size and pulmonary vascularity are within normal limits. There are mild streaky left basilar opacities partially obscuring the hemidiaphragm. The right lung is clear. No pleural fluid is evident. The bony structures are demineralized. Fixation rods and screws are evident at the thoracolumbar junction level traversing a known old T12 vertebral compression fracture IMPRESSION: Mild streaky left basilar atelectasis and/or pneumonitis.
[2017-02-08 15:00] VITALS: BP 110/60
[2017-02-08 19:53] VITALS: BP 113/61
[2017-02-08 23:53] VITALS: BP 105/55
[2017-02-09 03:00] VITALS: BP 111/58
[2017-02-09] MEDS: LEVOTHYROXINE 75 MCG TABLET PO SCH (06:45)
[2017-02-09] MEDS: PANTOPRAZOLE 40 MG TABLET. PO SCH (06:45)
[2017-02-09] MEDS: HYDROCODONE/APAP 7.5/325MG TABLET. PO PRN ×3 (06:49→20:47)
[2017-02-09 07:00] VITALS: BP 122/71
[2017-02-09] MEDS: IPRATRPIUM/ALBUTEROL 0.5/2.5MG 3 ML NEBU. NEB SCH ×4 (07:54→19:58)
--- NOTE | 2017-02-09 08:17 | PDOC ---
Provider Note Provider Note vss, no temp- still wbc 17 K- spongy edema lateral L chest to wound, ? seroma- will culture wound, surg to see re ? sono- po levoflox re uti, cult pending SHALONDA CARO MD Feb 09, 2017 08:17
[2017-02-09] MEDS: CARBIDOPA/LEVODOPA 25/100MG TABLET PO SCH ×3 (09:00→20:46)
[2017-02-09] MEDS: POLYETHYLENE GLYCOL 3350 17 GM PACKET. PO SCH (09:00)
[2017-02-09] MEDS: rOPINIRole 1 MG TABLET. PO SCH ×3 (09:00→20:46)
[2017-02-09 10:16] VITALS: BP 105/62
[2017-02-09] MEDS ORDERED: CONTRAST GIVEN MC PRN (13:00)
[2017-02-09] MEDS ORDERED: IOHEXOL 300 MG/ML 75 ML VIAL IV ONE (13:00)
[2017-02-09] MEDS ORDERED: IOHEXOL 240 MG/ML 50ML VIAL. PO ONE (13:00)
--- NOTE | 2017-02-09 13:15 | PDOC ---
SURGICAL PROGRESS NOTE Subjective drainage now from ostomy takedown site some pain to side Vital Signs Vital Signs Date Time Temp Pulse Resp B/P Pulse Ox O2 Delivery O2 Flow Rate FiO2 02/09/17 11:23 9 Nasal Cannula 2.0 02/09/17 10:16 98.1 100 18 105/62 98.1 I&O Intake and Output 02/09/17 07:00 Intake Total 1090 ml Output Total 350 ml Balance 740 ml Intake Oral 1090 ml Output Urine Total 350 ml General: Alert, Oriented X3, Cooperative, No acute distress Abdomen: Soft, Other (colostomy bag in place, drainage is serous--diffuse erythema and induration to left flank and hip, mild tenderness ) Problem List Problems Medical Problems: (1) LLQ abdominal pain Status: Acute (2) UTI (urinary tract infection) Status: Acute Assessment/Plan will check CT Problems: BROOK ARRIOLA APRN Feb 09, 2017 13:15
[2017-02-09 14:48] VITALS: BP 132/82
[2017-02-09] MEDS: LEVOFLOXACIN 250 MG TABLET. PO SCH (15:25)
[2017-02-09] MEDS: TAMSULOSIN 0.4 MG CAP.ER.24H. PO SCH (15:26)
[2017-02-09] MEDS: CITALOPRAM 20 MG TABLET. PO SCH (15:26)
[2017-02-09] MEDS: GABAPENTIN 300 MG CAPSULE. PO SCH ×2 (15:26→20:46)
[2017-02-09] MEDS: DOCUSATE SODIUM 100 MG CAPSULE PO PRN (15:26)
--- NOTE | 2017-02-09 15:26 | RAD ---
Indication: Left flank pain and redness post colostomy takedown. Technique: Axial images and coronal and sagittal reformatted images are provided. Oral contrast and 75 mL of intravenous Omnipaque 300 was administered without complication. Comparison is a CT from 4 days ago. One or more of the following individualized dose reduction techniques were utilized for this examination: 1. Automated exposure control 2. Adjustment of the mA and/or kV according to patient size 3. Use of iterative reconstruction technique Findings: There is atelectasis or scarring in the lung bases. There is no pleural effusion. The heart is not enlarged. There is mild fatty infiltration of the liver. Gallbladder is absent. Spleen is likely absent. Pancreas is limited in evaluation. There is streak artifact in the upper abdomen from spine hardware and overlying leads. There is no definite adrenal mass. The kidneys are symmetrically perfused. There is atheromatous disease in the abdominal aorta without aneurysm. There is no small bowel obstruction or mural thickening. There are postsurgical changes in the colon from an anastomosis, no definite extraluminal gas. Anastomosis may have been sidewall to sidewall. There is a moderate amount of stool in the proximal colon. There is atheromatous disease in the abdominal aorta without aneurysm. There is stranding and edema in the left lower quadrant subcutaneous tissues at the previous colostomy site. The organized collection noted on prior exam is no longer visualized. No new fluid collection is identified. There is overlying skin thickening. There is a [place] catheter decompressing the bladder. Air within the bladder is likely from the catheter. There is no pelvic mass or free pelvic fluid. There are degenerative changes and postsurgical changes in the spine. Impression: 1. Postsurgical changes of ostomy takedown, no evidence of extraluminal gas or intra-abdominal abscess. 2. Subcutaneous postoperative collection noted 4 days ago no longer is visualized. There is stranding and skin thickening in the left lower quadrant, correlate with concern for cellulitis.
[2017-02-09] MEDS: CHOLECALCIFEROL (VITAMIN D3) 1,000 UNIT TABLET PO SCH (15:27)
[2017-02-09 19:00] VITALS: BP 109/64
[2017-02-09 22:37] VITALS: BP 90/50
[2017-02-10 03:00] VITALS: BP 99/58
[2017-02-10] MEDS: LEVOFLOXACIN 250 MG TABLET. PO SCH (05:26)
[2017-02-10] MEDS: LEVOTHYROXINE 75 MCG TABLET PO SCH (05:26)
[2017-02-10] MEDS: HYDROCODONE/APAP 7.5/325MG TABLET. PO PRN ×3 (05:33→21:11)
[2017-02-10] MEDS: IPRATRPIUM/ALBUTEROL 0.5/2.5MG 3 ML NEBU. NEB SCH ×4 (07:45→19:49)
--- NOTE | 2017-02-10 08:25 | PDOC ---
Provider Note Provider Note no temp , vss , wbc still up- wound cult pending, bag in palce , draining dark fluid- on levoflox pending culture- rest of status same SHALONDA CARO MD Feb 10, 2017 08:25
[2017-02-10 08:49] VITALS: BP 129/75
[2017-02-10] MEDS: CHOLECALCIFEROL (VITAMIN D3) 1,000 UNIT TABLET PO SCH (09:00)
[2017-02-10] MEDS: rOPINIRole 1 MG TABLET. PO SCH ×3 (09:45→21:07)
[2017-02-10] MEDS: PANTOPRAZOLE 40 MG TABLET. PO SCH (09:45)
[2017-02-10] MEDS: GABAPENTIN 300 MG CAPSULE. PO SCH ×2 (09:45→21:06)
[2017-02-10] MEDS: CARBIDOPA/LEVODOPA 25/100MG TABLET PO SCH ×3 (09:45→21:06)
[2017-02-10] MEDS: POLYETHYLENE GLYCOL 3350 17 GM PACKET. PO SCH (09:45)
[2017-02-10] MEDS: TAMSULOSIN 0.4 MG CAP.ER.24H. PO SCH (09:45)
[2017-02-10] MEDS: CITALOPRAM 20 MG TABLET. PO SCH (09:45)
[2017-02-10 11:00] VITALS: BP 117/70
[2017-02-10 15:00] VITALS: BP 105/61
--- NOTE | 2017-02-10 17:56 | PDOC ---
Provider Note Provider Note SURG just eating regular diet for dinner no new complaints continue supportive care KOJO LEVI MD Feb 10, 2017 17:56
[2017-02-10 19:00] VITALS: BP 130/78
[2017-02-10 23:31] VITALS: BP 111/67
[2017-02-11 03:00] VITALS: BP 119/68
[2017-02-11] MEDS: LEVOTHYROXINE 75 MCG TABLET PO SCH (05:58)
[2017-02-11] MEDS: LEVOFLOXACIN 250 MG TABLET. PO SCH (05:58)
[2017-02-11] MEDS: IPRATRPIUM/ALBUTEROL 0.5/2.5MG 3 ML NEBU. NEB SCH ×4 (06:54→20:06)
[2017-02-11 07:38] VITALS: BP 143/83
--- NOTE | 2017-02-11 07:57 | PDOC ---
Provider Note Provider Note no temp, pulse 100-110, some redness lateral to stoma but not tender- cult pending- will repeat wbc re last value 17K SHALONDA CARO MD Feb 11, 2017 07:57
[2017-02-11 08:22] LABS: BASO # 0.1 x10^3/uL (0.0-0.2); BASO % 1 % (0-3); EOS % 7 % (0-3); HEMATOCRIT 30.4 % (36.0-47.0); HEMOGLOBIN 10.1 g/dL (12.0-15.5); LYMPH # 2.3 x10^3/uL (1.0-4.8); LYMPH % 20 % (24-48); MEAN CORPUSCULAR HEMOGLOBIN 33 pg (25-35); MEAN CORPUSCULAR HGB CONC 33 g/dL (31-37); MEAN CORPUSCULAR VOLUME 100 fL (79-100); MONO % 8 % (0-9); NEUT % 64 % (31-73); PLATELET COUNT 533 x10^3/uL (140-400); RED BLOOD COUNT 3.05 x10^6/uL (3.50-5.40); WHITE BLOOD COUNT 11.4 x10^3/uL (4.0-11.0)
--- NOTE | 2017-02-11 08:38 | PDOC ---
BROOK ARRIOLA KIER BOILER 02/11/17 0838: SURGICAL PROGRESS NOTE Subjective eating breakfast no complaints Vital Signs Vital Signs Date Time Temp Pulse Resp B/P Pulse Ox O2 Delivery O2 Flow Rate FiO2 02/11/17 06:54 96 Nasal Cannula 2.0 02/11/17 03:00 98.1 85 20 119/68 98.1 I&O Intake and Output 02/11/17 07:00 Intake Total 120 ml Output Total 2100 ml Balance -1980 ml Intake Oral 120 ml Output Urine Total 2100 ml General: Alert, Oriented X3, Cooperative, No acute distress Abdomen: Other (cellulitis improved, some drainage from wound-serous ) Labs Laboratory Tests Test 02/11/17 08:15 White Blood Count 11.4x10^3/uL (4.0-11.0) Red Blood Count 3.05x10^6/uL (3.50-5.40) Hemoglobin 10.1g/dL (12.0-15.5) Hematocrit 30.4% (36.0-47.0) Mean Corpuscular Volume 100fL (79-100) Mean Corpuscular Hemoglobin 33pg (25-35) Mean Corpuscular Hemoglobin Concent 33g/dL (31-37) Red Cell Distribution Width 14.0% (11.5-14.5) Platelet Count 533x10^3/uL (140-400) Neutrophils (%) (Auto) 64% (31-73) Lymphocytes (%) (Auto) 20% (24-48) Monocytes (%) (Auto) 8% (0-9) Eosinophils (%) (Auto) 7% (0-3) Basophils (%) (Auto) 1% (0-3) Neutrophils # (Auto) 7.2x10^3uL (1.8-7.7) Lymphocytes # (Auto) 2.3x10^3/uL (1.0-4.8) Monocytes # (Auto) 0.9x10^3/uL (0.0-1.1) Eosinophils # (Auto) 0.8x10^3/uL (0.0-0.7) Basophils # (Auto) 0.1x10^3/uL (0.0-0.2) Laboratory Tests Test 02/11/17 08:15 White Blood Count 11.4x10^3/uL (4.0-11.0) Red Blood Count 3.05x10^6/uL (3.50-5.40) Hemoglobin 10.1g/dL (12.0-15.5) Hematocrit 30.4% (36.0-47.0) Mean Corpuscular Volume 100fL (79-100) Mean Corpuscular Hemoglobin 33pg (25-35) Mean Corpuscular Hemoglobin Concent 33g/dL (31-37) Red Cell Distribution Width 14.0% (11.5-14.5) Platelet Count 533x10^3/uL (140-400) Neutrophils (%) (Auto) 64% (31-73) Lymphocytes (%) (Auto) 20% (24-48) Monocytes (%) (Auto) 8% (0-9) Eosinophils (%) (Auto) 7% (0-3) Basophils (%) (Auto) 1% (0-3) Neutrophils # (Auto) 7.2x10^3uL (1.8-7.7) Lymphocytes # (Auto) 2.3x10^3/uL (1.0-4.8) Monocytes # (Auto) 0.9x10^3/uL (0.0-1.1) Eosinophils # (Auto) 0.8x10^3/uL (0.0-0.7) Basophils # (Auto) 0.1x10^3/uL (0.0-0.2) Problem List Problems Medical Problems: (1) LLQ abdominal pain Status: Acute (2) UTI (urinary tract infection) Status: Acute Assessment/Plan supportive care Problems: KOJO LEVI MD 02/11/17 1452: SURGICAL PROGRESS NOTE Assessment/Plan as above no new surg recs Problems: BROOK ARRIOLA KIER BOILER Feb 11, 2017 08:38 KOJO LEVI MD Feb 11, 2017 14:52
[2017-02-11] MEDS: DOCUSATE SODIUM 100 MG CAPSULE PO PRN (09:49)
[2017-02-11] MEDS: PANTOPRAZOLE 40 MG TABLET. PO SCH (09:49)
[2017-02-11] MEDS: CITALOPRAM 20 MG TABLET. PO SCH (09:49)
[2017-02-11] MEDS: CARBIDOPA/LEVODOPA 25/100MG TABLET PO SCH ×3 (09:49→21:24)
[2017-02-11] MEDS: POLYETHYLENE GLYCOL 3350 17 GM PACKET. PO SCH (09:50)
[2017-02-11] MEDS: CHOLECALCIFEROL (VITAMIN D3) 1,000 UNIT TABLET PO SCH (09:50)
[2017-02-11] MEDS: rOPINIRole 1 MG TABLET. PO SCH ×3 (09:50→21:24)
[2017-02-11] MEDS: TAMSULOSIN 0.4 MG CAP.ER.24H. PO SCH (09:50)
[2017-02-11] MEDS: GABAPENTIN 300 MG CAPSULE. PO SCH ×2 (09:50→21:24)
[2017-02-11 10:30] VITALS: BP 134/77
[2017-02-11] MEDS: HYDROCODONE/APAP 7.5/325MG TABLET. PO PRN ×2 (12:06→17:59)
[2017-02-11 14:35] VITALS: BP 115/61
[2017-02-11 19:15] VITALS: BP 113/64
[2017-02-11 23:31] VITALS: BP 106/67
[2017-02-12 03:05] VITALS: BP 121/71
[2017-02-12] MEDS: LEVOTHYROXINE 75 MCG TABLET PO SCH (06:31)
[2017-02-12] MEDS: LEVOFLOXACIN 250 MG TABLET. PO SCH (06:31)
[2017-02-12 07:35] VITALS: BP 158/86
--- NOTE | 2017-02-12 07:55 | DISCH ---
DISCHARGE FINAL DIAGNOSIS Problems Medical Problems: (1) LLQ abdominal pain Status: Acute (2) UTI (urinary tract infection) Status: Acute CONDITION ON DISCHARGE: Stable SNF STAY <30 DAYS: Yes POST DISCHARGE ORDERS ACTIVITY ORDERS: No restrictions WEIGHT BEARING STATUS: No restrictions BATHING ORDERS: Shower-keep dressing dry, No Tub Bath until see DIET AFTER DISCHARGE: Regular WOUND/INCISION CARE: Ice to area for comfort, Change dressing FOLLOW-UP PHYSICIAN FOLLOW-UP: per surgery TREATMENT/EQUIPMENT ORDERS ADAPTIVE EQUIPMENT NEEDED: None RESPIRATORY EQUIPMENT NEEDED: Oxygen SHALONDA CARO MD Feb 12, 2017 07:54
--- NOTE | 2017-02-12 07:57 | PDOC ---
Provider Note Provider Note [id number] SHALONDA CARO MD Feb 12, 2017 07:57
--- NOTE | 2017-02-12 09:52 | PDOC ---
BROOK ARRIOLA ABALONE FISHERMAN 02/12/17 0952: SURGICAL PROGRESS NOTE Subjective feeling ok didnt eat breakfast noted discharge orders Vital Signs Vital Signs Date Time Temp Pulse Resp B/P Pulse Ox O2 Delivery O2 Flow Rate FiO2 02/12/17 07:35 99.3 93 18 158/86 94 Nasal Cannula 2.0 99.3 I&O Intake and Output 02/12/17 07:00 Intake Total 660 ml Output Total 4350 ml Balance -3690 ml Intake Oral 660 ml Output Urine Total 4350 ml PATIENT HAS A WALTER: Yes General: Cooperative, No acute distress Abdomen: Normal bowel sounds, Soft, Other (drainage from ostomy takedown site serous, minimal erythema to flank) Labs Laboratory Tests Test 02/11/17 08:15 White Blood Count 11.4x10^3/uL (4.0-11.0) Red Blood Count 3.05x10^6/uL (3.50-5.40) Hemoglobin 10.1g/dL (12.0-15.5) Hematocrit 30.4% (36.0-47.0) Mean Corpuscular Volume 100fL (79-100) Mean Corpuscular Hemoglobin 33pg (25-35) Mean Corpuscular Hemoglobin Concent 33g/dL (31-37) Red Cell Distribution Width 14.0% (11.5-14.5) Platelet Count 533x10^3/uL (140-400) Neutrophils (%) (Auto) 64% (31-73) Lymphocytes (%) (Auto) 20% (24-48) Monocytes (%) (Auto) 8% (0-9) Eosinophils (%) (Auto) 7% (0-3) Basophils (%) (Auto) 1% (0-3) Neutrophils # (Auto) 7.2x10^3uL (1.8-7.7) Lymphocytes # (Auto) 2.3x10^3/uL (1.0-4.8) Monocytes # (Auto) 0.9x10^3/uL (0.0-1.1) Eosinophils # (Auto) 0.8x10^3/uL (0.0-0.7) Basophils # (Auto) 0.1x10^3/uL (0.0-0.2) Problem List Problems Medical Problems: (1) LLQ abdominal pain Status: Acute (2) UTI (urinary tract infection) Status: Acute Assessment/Plan ok to dc FU in clinic with Dr Coronel Problems: KOJO LEVI MD 02/12/17 1327: SURGICAL PROGRESS NOTE Assessment/Plan agree with above Problems: BROOK ARRIOLA APRN Feb 12, 2017 09:52 KOJO LEVI MD Feb 12, 2017 13:27
[2017-02-12 10:10] VITALS: BP 159/90
[2017-02-12] MEDS: POLYETHYLENE GLYCOL 3350 17 GM PACKET. PO SCH (11:38)
[2017-02-12] MEDS: GABAPENTIN 300 MG CAPSULE. PO SCH (11:39)
[2017-02-12] MEDS: CITALOPRAM 20 MG TABLET. PO SCH (11:39)
[2017-02-12] MEDS: TAMSULOSIN 0.4 MG CAP.ER.24H. PO SCH (11:39)
[2017-02-12] MEDS: DOCUSATE SODIUM 100 MG CAPSULE PO PRN (11:39)
[2017-02-12] MEDS: CHOLECALCIFEROL (VITAMIN D3) 1,000 UNIT TABLET PO SCH (11:39)
[2017-02-12] MEDS: CARBIDOPA/LEVODOPA 25/100MG TABLET PO SCH (11:39)
[2017-02-12] MEDS: HYDROCODONE/APAP 7.5/325MG TABLET. PO PRN (11:39)
[2017-02-12] MEDS: rOPINIRole 1 MG TABLET. PO SCH (11:40)
[2017-02-12] MEDS: PANTOPRAZOLE 40 MG TABLET. PO SCH (11:40)
[2017-02-12 14:10] VITALS: BP 102/58
--- NOTE | 2017-02-12 17:38 | DS ---
DATE OF DISCHARGE: 02/12/2017 HOSPITAL SUMMARY: The patient was admitted with some swelling in the recent colostomy takedown reanastomosis and also urinary tract infection. She was treated with IV Levaquin for urinary tract infection with Citrobacter which was sensitive to quinolones. White count was initially 17,000 and came down to 11,000 with treatment and chemistry profile was all within normal limits and abdominal and pelvic CT showed evidence of post-surgical ostomy take down with no sign of any abscess. She is afebrile, eating and drinking well, ____ she can be followed as an outpatient at this point. FINAL DIAGNOSIS: Urinary tract infection. OPERATIONS, PROCEDURES, COMPLICATIONS: None. CONSULTATIONS: Dr. Soliz's group. DISPOSITION: Home meds remain the same. Discontinue the antibiotic at this point. Prognosis is extremely guarded, given her progressive Parkinson's and underlying dementia. SHALONDA CARO MD DR: ARIANNE/nts JOB#: [id number] / [id number]
== END 2017-02-12 14:36 | DRG 602 ==
LOC: ER 19:12 → 5 NORTH 23:12
PROVIDERS: ADMIT Family Medicine; ATTEND Family Medicine
DX: L03.90 Cellulitis, unspecified (principal); G92 Toxic encephalopathy; N39.0 Urinary tract infection, site not specified; E44.0 Moderate protein-calorie malnutrition; E03.9 Hypothyroidism, unspecified; F03.90 Unspecified dementia, unspecified severity, without behavioral disturbance, psychotic disturbance, mood disturbance, and anxiety; G20 Parkinson's disease; G25.81 Restless legs syndrome; K21.9 Gastro-esophageal reflux disease without esophagitis; K59.00 Constipation, unspecified; M79.7 Fibromyalgia; Z96.659 Presence of unspecified artificial knee joint; D72.829 Elevated white blood cell count, unspecified; F32.9 Major depressive disorder, single episode, unspecified; F41.9 Anxiety disorder, unspecified; Z88.0 Allergy status to penicillin; Z88.2 Allergy status to sulfonamides; Z93.3 Colostomy status; Z88.8 Allergy status to other drugs, medicaments and biological substances; Z90.710 Acquired absence of both cervix and uterus; Z68.28 Body mass index [BMI] 28.0-28.9, adult
CPT/HCPCS: 36415; 51702; 71020; 74177; 80048; 80053; 80076; 81001; 83605; 83690; 84484; 85027; 87071; 87075; 87086; 87186; 87205; 87641; 93005; 94250; 94640; 94760; 96365; J1956; J7030; J7040; J7620; Q9966; Q9967; 97110; 97116; 97530; 99285-25

== ENCOUNTER 2019-04-27 21:14 | Emergency (ER) | payer MEDICARE ==
[~2019-04-27] VITALS: Ht 167.6 cm; Wt 69.9 kg
[~2019-04-27 21:14] MED LIST changes: -CHOL20004 PO; +CHOL200074 PO; +CLON1TAB11 PO; -CLON1TAB3 PO; +DOCU-109 PO; -DOCU-27 PO; -GABA-586 PO; +GABA300C18 PO; -HYDR-2762 PO; +HYDR-2765 PO; -HYDR1TAB12 PO; +HYDR1TAB13 PO; -LEVO500T38 PO; +LEVO500T59 PO; +POLY17PO29 PO; -POLY17PO5 PO; +WARF-78 PO; -WARF5TAB PO
[2019-04-27] MEDS ORDERED: ACETAMINOPHEN 500 MG TABLET PO ONE (21:30)
--- NOTE | 2019-04-27 22:47 | RAD ---
CT scan of the head without contrast 04/27/2019 Clinical History: Head pain post fall. Technique: Unenhanced, contiguous, 5 mm axial sections were obtained through the head. One or more of the following individualized dose reduction techniques were utilized for this study: 1. Automated exposure control. 2. Adjustment of the mA and/or kV according to patient size. 3. Use of iterative reconstruction technique. Findings: There is generalized parenchymal atrophy. Areas of decreased attenuation are seen within the periventricular and subcortical white matter of both cerebral hemispheres consistent with areas of small vessel ischemic disease. No acute parenchymal abnormality is seen. No extra-axial fluid collection is noted. No skull fracture is seen. Impression: No acute intracranial abnormality is seen. CT scan of the cervical spine without contrast 04/27/2019 Clinical history: Neck pain post fall. Technique: Unenhanced, contiguous, 0.625 mm axial sections were obtained through the cervical spine. Axial, coronal and sagittal reconstructed images were obtained. One or more of the following individualized dose reduction techniques were utilized for this study: 1. Automated exposure control. 2. Adjustment of the mA and/or kV according to patient size. 3. Use of iterative reconstruction technique. Findings: Sagittal and coronal reconstructed images demonstrate mild lateral curvature of the cervical spine, convex to the left. Degenerative changes consisting of disc space narrowing, vertebral endplate sclerosis and mild to moderate anterior and posterior vertebral body osteophyte formation are seen involving the mid and lower cervical disc spaces. No fracture or subluxation cervical vertebrae seen. Degenerative changes are seen involving the uncovertebral and facet joints throughout the cervical disc spaces. Impression: No fracture or subluxation of the cervical vertebra is identified. Electronically signed by: Juan M Rojas MD (04/27/2019 10:44 PM) [facility]
--- NOTE | 2019-04-27 23:26 | PHYS DOC ---
Past Medical History Past Medical History: Anxiety, Constipation, Dementia, Depression, Fibrom yalgia, GERD, Hypothyroid, Other Additional Past Medical Histor: parkinson's disease, urine retention, RLS Past Medical History Limited due to dementia Past Surgical History: Cholecystectomy, Hysterectomy, Knee Replacement, Other Additional Past Surgical Histo: 3 back sx, breast biopsy, carpal tunnel, miniscus repair, ostomy Past Surgical History Limited due to dementia Additional Information: Nonsmoker Alcohol Use: None Drug Use: None Social History Limited due to dementia Adult General Chief Complaint Chief Complaint: MECHANICAL FALL HPI HPI 74-year-old female presents from assisted living with report of witnessed mechanical trip and fall from standing just prior to arrival. Patient does have a history of dementia. Spouse reported to EMS he saw patient gets caught up in a rug. Patient reportedly did not have any loss of consciousness. Was able to immediately get back up from fall. Due to patient's baseline altered mental status family and assisted living staff became concerned and therefore called EMS for transportation for further evaluation. Patient reports she is having some "rib pain" which is similar to prior. Reports she did strike her head. Denies neck pain. History of present illness limited due to patient's history of dementia Review of Systems Review of Systems HENT: Denies epistaxis Respiratory: Denies cough or shortness of breath Cardiovascular: Reports chest wall pain Neurologic: Reports headache Review of systems limited due to patient's history of dementia Current Medications Current Medications Current Medications Medications (Trade) Dose Ordered Sig/Maico Start Time Stop Time Status Last Admin Dose Admin Acetaminophen (Tylenol) 500 mg 1X ONCE 04/27/19 21:30 04/27/19 21:31 DC 04/27/19 22:20 500 MG Allergies Allergies Allergies Coded Allergies Type Severity Reaction Last Updated Verified Penicillins Allergy Intermediate hives 01/19/17 Yes Sulfa (Sulfonamide Antibiotics) Allergy Intermediate hives 01/19/17 Yes potassium chloride Allergy Intermediate 02/11/17 Yes Physical Exam Physical Exam Constitutional: Well developed, well nourished, no acute distress, non-toxic appearance HENT: Normocephalic, atraumatic, oropharynx moist Eyes: PERRL, EOMI, conjunctiva normal, no discharge Neck: Normal range of motion, no midline tenderness, mild paraspinal tenderness noted bilaterally, supple Cardiovascular: Heart rate normal, regular rhythm Lungs & Thorax: Bilateral breath sounds clear to auscultation, no wheezing Abdomen: Soft, no tenderness, pelvis stable and nontender Skin: Warm, dry, no erythema, no rash Extremities: No tenderness, ROM intact, no edema Neurologic: Alert and oriented X 2, normal motor function, normal sensory function, no focal deficits noted Psychologic: judgement abnormal(baseline), mood normal Current Patient Data Vital Signs Vital Signs Date Time Temp Pulse Resp B/P (MAP) Pulse Ox O2 Delivery O2 Flow Rate FiO2 04/28/19 00:00 69 20 95 04/27/19 21:15 98.4 121/70 (87) Room Air 98.4 EKG EKG [] Radiology/Procedures Radiology/Procedures PROCEDURE: CT HEAD AND CERVICAL SPINE WO CT scan of the head without contrast 04/27/2019 Clinical History: Head pain post fall. Technique: Unenhanced, contiguous, 5 mm axial sections were obtained through the head. One or more of the following individualized dose reduction techniques were utilized for this study: 1. Automated exposure control. 2. Adjustment of the mA and/or kV according to patient size. 3. Use of iterative reconstruction technique. Findings: There is generalized parenchymal atrophy. Areas of decreased attenuation are seen within the periventricular and subcortical white matter of both cerebral hemispheres consistent with areas of small vessel ischemic disease. No acute parenchymal abnormality is seen. No extra-axial fluid collection is noted. No skull fracture is seen. Impression: No acute intracranial abnormality is seen. CT scan of the cervical spine without contrast 04/27/2019 Clinical history: Neck pain post fall. Technique: Unenhanced, contiguous, 0.625 mm axial sections were obtained through the cervical spine. Axial, coronal and sagittal reconstructed images were obtained. One or more of the following individualized dose reduction techniques were utilized for this study: 1. Automated exposure control. 2. Adjustment of the mA and/or kV according to patient size. 3. Use of iterative reconstruction technique. Findings: Sagittal and coronal reconstructed images demonstrate mild lateral curvature of the cervical spine, convex to the left. Degenerative changes consisting of disc space narrowing, vertebral endplate sclerosis and mild to moderate anterior and posterior vertebral body osteophyte formation are seen involving the mid and lower cervical disc spaces. No fracture or subluxation cervical vertebrae seen. Degenerative changes are seen involving the uncovertebral and facet joints throughout the cervical disc spaces. Impression: No fracture or subluxation of the cervical vertebra is identified. Electronically signed by: Juan M Rojas MD (04/27/2019 10:44 PM) [facility] PROCEDURE: CT CHEST WO CONTRAST CT scan of the chest without contrast 04/27/2019 CLINICAL HISTORY: Chest pain post fall. TECHNIQUE: Unenhanced, contiguous, 5 mm axial sections were obtained through the chest and upper abdomen. One or more of the following individualized dose reduction techniques were utilized for this study: 1. Automated exposure control. 2. Adjustment of the mA and/or kV according to patient size. 3. Use of iterative reconstruction technique. FINDINGS: Mild atherosclerotic calcification of the thoracic aorta and its branches is noted. The thoracic aorta is mildly tortuous but tapers normally. There is mild cardiomegaly. No mediastinal hematoma is seen. Minimal dependent subsegmental atelectasis seen involving both lungs. No area of consolidation is seen. No pneumothorax or pleural effusion is noted. The patient is post posterolateral fusion using pedicle screws and stabilizing rods extending from what appears to be T10 to L1. A compression fracture of the T12 vertebral body is seen. This appears to be old. Degenerative changes are seen involving the thoracic and visualized lumbar spine. Mild S-shaped curvature of the thoracolumbar spine is noted. Images through the upper abdomen demonstrate surgical clips within the gallbladder fossa consistent with cholecystectomy. Atherosclerotic calcification abdominal aorta and its branches is noted. IMPRESSION: No acute abnormality is seen. Electronically signed by: Juan M Rojas MD (04/27/2019 11:23 PM) [facility] Course & Med Decision Making Course & Med Decision Making Pertinent Labs and Imaging studies reviewed. (See chart for details) Elderly patient with past medical history of dementia presents from assisted living with report of witnessed mechanical trip and fall. Patient denies any new pain or discomfort. Patient neurologically baseline. No deformity noted. CT head/cervical spine/chest obtained without acute process. Patient stable for discharge with outpatient follow-up with PCP. Discussed findings and plan with patient, who acknowledges understanding and agreement. Dragon Disclaimer Dragon Disclaimer This electronic medical record was generated, in whole or in part, using a voice recognition dictation system. Departure Departure Impression: Primary Impression: Fall Additional Impressions: Head contusion Cervical strain Chronic pain Disposition: 01 HOME, SELF-CARE Condition: STABLE Referrals: SHALONDA CARO MD (PCP) Problem Qualifiers Primary Impression: Fall Encounter type: initial encounter Qualified Codes: W19.XXXA - Unspecified fall, initial encounter Additional Impressions: Head contusion Encounter type: initial encounter Contusion of head detail: scalp Qualified Codes: S00.03XA - Contusion of scalp, initial encounter Cervical strain Encounter type: initial encounter Qualified Codes: S16.1XXA - Strain of muscle, fascia and tendon at neck level, initial encounter Chronic pain Chronic pain type: other chronic pain Qualified Codes: G89.29 - Other chronic pain CARLITOS JEFFERSON DO April 27, 2019 23:26
[2019-04-28] VITALS: BP 124/64
== END 2019-04-28 02:42 | disposition home or self-care (01) ==
LOC: ER 21:14
DX: S16.1XXA Strain of muscle, fascia and tendon at neck level, initial encounter (principal); S00.03XA Contusion of scalp, initial encounter; G89.29 Other chronic pain; R07.81 Pleurodynia; F32.9 Major depressive disorder, single episode, unspecified; E03.9 Hypothyroidism, unspecified; K21.9 Gastro-esophageal reflux disease without esophagitis; G20 Parkinson's disease; F02.80 Dementia in other diseases classified elsewhere, unspecified severity, without behavioral disturbance, psychotic disturbance, mood disturbance, and anxiety; G25.81 Restless legs syndrome; Z88.0 Allergy status to penicillin; Z88.2 Allergy status to sulfonamides; Z88.8 Allergy status to other drugs, medicaments and biological substances; W01.0XXA Fall on same level from slipping, tripping and stumbling without subsequent striking against object, initial encounter; Y93.89 Activity, other specified; Y92.89 Other specified places as the place of occurrence of the external cause; Y99.8 Other external cause status
CPT/HCPCS: 70450; 71250; 72125; 99284-25

== ENCOUNTER 2019-05-06 08:50 | Emergency (ER) | payer MEDICARE ==
[~2019-05-06] VITALS: Ht 162.6 cm; Wt 69.9 kg
--- NOTE | 2019-05-06 09:08 | PHYS DOC ---
Past Medical History Past Medical History: Anxiety, Constipation, Dementia, Depression, Fibrom yalgia, GERD, Hypothyroid, Other Additional Past Medical Histor: parkinson's disease, urine retention, RLS Past Surgical History: Cholecystectomy, Hysterectomy, Knee Replacement, Other Additional Past Surgical Histo: 3 back sx, breast biopsy, carpal tunnel, miniscus repair, ostomy Alcohol Use: None Drug Use: None Adult General Chief Complaint Chief Complaint: MECHANICAL FALL HPI HPI 74-year-old female presents to ER via EMS from a local assisted living facility. Patient has history of Parkinson's and lost her balance after getting her toe stuck on a road causing her to fall forward striking her right eye on the toilet. Patient denies loss of consciousness and EMS report staff at facility also confirmed patient had no LOC. EMS reported patient had initially stated she had neck pain so they attempted a c-collar however with her tremors due to her Parkinson's she was unable to tolerate collar. On arrival patient is denying any complaints. Patient does have small laceration to right upper eyelid with bruising and swelling at site. No active bleeding. Pt denies daily blood thinners. Review of Systems Review of Systems Constitutional: Denies LOC Eyes: Denies change in visual acuity. Reports pain at lac/injury site rt eyelid HENT: Denies head/neck pain currently- EMS reported pt had c/o neck pain when they initially arrived to facility Respiratory: Denies cough or shortness of breath [] Cardiovascular: Denies CP GI: Denies abdominal pain, nausea, vomiting Musculoskeletal: Denies back/neck pain or joint pain [] Integument: Laceration/bruising/swelling to rt eye brow Neurologic: Denies headache, focal weakness or sensory changes. Denies dizziness All other systems were reviewed and found to be within normal limits, except as documented in this note. Allergies Allergies Allergies Coded Allergies Type Severity Reaction Last Updated Verified Penicillins Allergy Intermediate hives 01/19/17 Yes Sulfa (Sulfonamide Antibiotics) Allergy Intermediate hives 01/19/17 Yes potassium chloride Allergy Intermediate 02/11/17 Yes Physical Exam Physical Exam Constitutional: Well developed, well nourished, no acute distress, non-toxic appearance. Clear speech HENT: Normocephalic, bilateral ears normal, oropharynx moist, no oral injury, nose normal. Rt upper eye lid laceration with ecchymosis/swelling at site- no bleeding Eyes: 2mm PERRLA, EOMI, no nystagmus, conjunctiva normal, no discharge. [] Neck: Normal range of motion, no tenderness on palp. mid line cspine- no palp. deformity/crepitus, supple, no stridor. [] Cardiovascular: Heart rate regular rhythm, no murmur [] Lungs & Thorax: Bilateral breath sounds clear to auscultation- resp. equal/nonlabored. No chest wall tenderness Abdomen: Bowel sounds normal, soft, no tenderness Skin: Warm, dry Back: No tenderness mid line spine or palp. deformity- no visible injury, no CVA tenderness. [] Extremities: Pelvis stable/nontender. No tenderness, no cyanosis, no clubbing, ROM intact, 2-3+ bilat. pedal edema- pt has compression stockings on Neurologic: Alert and oriented X 3, normal motor function, normal sensory function, no focal deficits noted. [] Psychologic: Affect normal, judgement normal, mood normal. [] Current Patient Data Vital Signs Vital Signs Date Time Temp Pulse Resp B/P (MAP) Pulse Ox O2 Delivery O2 Flow Rate FiO2 05/06/19 08:53 98.3 70 16 120/57 (78) 96 Room Air 98.3 EKG EKG [] Radiology/Procedures Radiology/Procedures PROCEDURE: CT HEAD AND CERVICAL SPINE WO CT head without contrast. CT orbits without contrast. CT cervical spine without contrast. HISTORY: Fell and hit the right orbit, right orbital pain, neck pain. TECHNIQUE: Noncontrast CT imaging of the head, orbits and cervical spine multiplanar reconstructions was acquired. COMPARISON: CT head and cervical spine April 27, 2019. CT head findings: No intracranial hemorrhage, mass, hydrocephalus, extra-axial fluid collections or infarction. No acute ischemic changes evident. Orbits, mastoids, paranasal sinuses and bones are unremarkable. IMPRESSION: No acute intracranial CT abnormality. CT orbits findings: Imaged facial bones intact. The bony orbits are intact, no fracture of the orbits. Imaged paranasal sinuses are well aerated. There is mild maxillary sinus mucosal thickening inferiorly on the left. No periorbital or orbital soft tissue edema or hematoma. IMPRESSION: Orbits intact. CT cervical spine findings: Craniocervical junction intact. Cervical vertebral body height and alignment intact. No fracture of the cervical spine. Lung apices and paraspinal tissues are unremarkable. Multilevel cervical disc height loss, soft disc bulges, endplate spurring and uncovertebral and facet spurring with spinal canal and neural foraminal stenoses, several levels are likely severely stenotic. IMPRESSION: No acute osseous injury of the cervical spine. Cervical disc disease is present as described above. Exposure: One or more of the following individualized dose reduction techniques were utilized for this examination: 1. Automated exposure control 2. Adjustment of the mA and/or kV according to patient size 3. Use of iterative reconstruction technique Electronically signed by: Enzo Schafer MD (05/06/2019 9:46 AM) [facility] Laceration Repair by me: [id number] Anesthesia: None Location: Rt upper eye lid below eye brow Foreign body: None detected after copious irrigation and exploration Technique: Dermabond Complexity: No subcutaneous sutures/mucosal repair/edge excision Post Closure Length: Star burst type approx. 2 cm Patient's bleeding was easily controlled in the department and there is no indication of anemia. No evidence of compartment syndrome, neurologic injury, vascular injury, open joint, tendon laceration, or foreign body. Patient is appropriate for outpatient follow up. 48 hour wound check. Scar minimization instructions given. Course & Med Decision Making Course & Med Decision Making Pertinent Imaging studies reviewed. (See chart for details) Pt was evaluated in the ER following a mechanical fall. Patient has laceration to right upper eye lid which was cleaned and Dermabond was used for laceration repair. Patient has remained alert and oriented 3 with no change in mental status. CT of head, C-spine, and orbitals were obtained with no acute findings on report. Education provided on signs and symptoms to return to ER. Discharge instructions were discussed. Patient to follow-up with primary care physician if symptoms persist or with any concerns. Dragon Disclaimer Dragon Disclaimer This electronic medical record was generated, in whole or in part, using a voice recognition dictation system. Departure Departure Impression: Primary Impression: Fall Additional Impressions: Facial laceration Contusion Head injury Disposition: 01 HOME, SELF-CARE Condition: STABLE Referrals: SHALONDA CARO MD (PCP) Patient Instructions: Contusion, Facial Laceration, Fall Prevention and Home Safety, Head Injury, Adult, Stitches, Mariia or Skin Adhesive Strips, Easy-to- Read Additional Instructions: Use walker while walking to prevent further falls. Follow-up with your primary care physician with any concerns. Problem Qualifiers MEGHAN FERRERA APRN May 06, 2019 09:08
--- NOTE | 2019-05-06 09:49 | RAD ---
CT head without contrast. CT orbits without contrast. CT cervical spine without contrast. HISTORY: Fell and hit the right orbit, right orbital pain, neck pain. TECHNIQUE: Noncontrast CT imaging of the head, orbits and cervical spine multiplanar reconstructions was acquired. COMPARISON: CT head and cervical spine April 27, 2019. CT head findings: No intracranial hemorrhage, mass, hydrocephalus, extra-axial fluid collections or infarction. No acute ischemic changes evident. Orbits, mastoids, paranasal sinuses and bones are unremarkable. IMPRESSION: No acute intracranial CT abnormality. CT orbits findings: Imaged facial bones intact. The bony orbits are intact, no fracture of the orbits. Imaged paranasal sinuses are well aerated. There is mild maxillary sinus mucosal thickening inferiorly on the left. No periorbital or orbital soft tissue edema or hematoma. IMPRESSION: Orbits intact. CT cervical spine findings: Craniocervical junction intact. Cervical vertebral body height and alignment intact. No fracture of the cervical spine. Lung apices and paraspinal tissues are unremarkable. Multilevel cervical disc height loss, soft disc bulges, endplate spurring and uncovertebral and facet spurring with spinal canal and neural foraminal stenoses, several levels are likely severely stenotic. IMPRESSION: No acute osseous injury of the cervical spine. Cervical disc disease is present as described above. Exposure: One or more of the following individualized dose reduction techniques were utilized for this examination: 1. Automated exposure control 2. Adjustment of the mA and/or kV according to patient size 3. Use of iterative reconstruction technique Electronically signed by: Enzo Schafer MD (05/06/2019 9:46 AM) [facility]
[2019-05-06 11:00] VITALS: BP 122/62
== END 2019-05-06 12:07 | disposition home or self-care (01) ==
LOC: ER 08:50
DX: S01.111A Laceration without foreign body of right eyelid and periocular area, initial encounter (principal); S09.90XA Unspecified injury of head, initial encounter; M54.2 Cervicalgia; H57.11 Ocular pain, right eye; K21.9 Gastro-esophageal reflux disease without esophagitis; E03.9 Hypothyroidism, unspecified; G20 Parkinson's disease; F02.80 Dementia in other diseases classified elsewhere, unspecified severity, without behavioral disturbance, psychotic disturbance, mood disturbance, and anxiety; Z88.0 Allergy status to penicillin; Z88.2 Allergy status to sulfonamides; Z88.8 Allergy status to other drugs, medicaments and biological substances; W18.09XA Striking against other object with subsequent fall, initial encounter; Y93.89 Activity, other specified; Y92.89 Other specified places as the place of occurrence of the external cause; Y99.8 Other external cause status
CPT/HCPCS: 12011; 70450; 70480; 72125; 99284-25

== ENCOUNTER 2019-05-20 15:15 | Emergency (ER) | payer MEDICARE ==
[~2019-05-20] VITALS: Ht 162.6 cm; Wt 69.9 kg
[2019-05-20 15:23] VITALS: BP 155/58
--- NOTE | 2019-05-20 16:52 | PHYS DOC ---
Past Medical History Past Medical History: Depression, High Cholesterol, Hypothyroid Additional Past Medical Histor: PARKINSONS Past Surgical History: Cholecystectomy, Hysterectomy, Knee Replacement, Other Additional Past Surgical Histo: 3 back sx, breast biopsy, carpal tunnel, mini scus repair, ostomy Alcohol Use: None Drug Use: None Adult General Chief Complaint Chief Complaint: MECHANICAL FALL [facility] HPI Patient is a 74 year old female that presents with a fall that happened 2 hours before she got here. The patient states it was a mechanical fall after she lost her balance. The patient has a slight headache that is improving. Her pain as 4 out of 10 and throbbing. Also has some back pain. Denies taking medications prior to arrival. Review of Systems Review of Systems Constitutional: Denies fever or chills [] Eyes: Denies change in visual acuity, redness, or eye pain [] HENT: Denies nasal congestion or sore throat [] Respiratory: Denies cough or shortness of breath [] Cardiovascular: No additional information not addressed in HPI [] GI: Denies abdominal pain, nausea, vomiting, bloody stools or diarrhea [] : Denies dysuria or hematuria [] Musculoskeletal: Reports back pain denies joint pain [] Integument: Denies rash or skin lesions [] Neurologic: Reports headache, denies focal weakness or sensory changes [] Endocrine: Denies polyuria or polydipsia [] Complete systems were reviewed and found to be within normal limits, except as documented in this note. Current Medications Current Medications Current Medications Medications (Trade) Dose Ordered Sig/Maico Start Time Stop Time Status Last Admin Dose Admin Acetaminophen/ Hydrocodone Bitart (Lortab 5/325) 1 tab 1X ONCE 05/20/19 17:30 05/20/19 17:31 DC 05/20/19 17:32 1 TAB Allergies Allergies Allergies Coded Allergies Type Severity Reaction Last Updated Verified Penicillins Allergy Intermediate hives 01/19/17 Yes Sulfa (Sulfonamide Antibiotics) Allergy Intermediate hives 01/19/17 Yes potassium chloride Allergy Intermediate 02/11/17 Yes Physical Exam Physical Exam Constitutional: Well developed, well nourished, no acute distress, non-toxic appearance. [] HENT: Normocephalic, atraumatic, bilateral external ears normal, oropharynx moist, no oral exudates, nose normal. [] Eyes: PERRLA, EOMI, conjunctiva normal, no discharge. [] Neck: Normal range of motion, no tenderness, supple, no stridor. [] Cardiovascular:Heart rate regular rhythm, no murmur [] Lungs & Thorax: Bilateral breath sounds clear to auscultation [] Abdomen: Bowel sounds normal, soft, no tenderness, no masses, no pulsatile masses. [] Skin: Warm, dry, no erythema, no rash. [] Back: Tenderness to thoracic spine, no CVA tenderness. [] Extremities: No tenderness, no cyanosis, no clubbing, ROM intact, no edema. [] Neurologic: Alert and oriented X 3, normal motor function, normal sensory function, no focal deficits noted. [] Psychologic: Affect normal, judgement normal, mood normal. [] Current Patient Data Vital Signs Vital Signs Date Time Temp Pulse Resp B/P (MAP) Pulse Ox O2 Delivery O2 Flow Rate FiO2 05/20/19 15:23 98.7 63 18 155/58 (90) 94 Room Air 98.7 EKG EKG [] Radiology/Procedures Radiology/Procedures []PATIENT: ALLY MCINTYRE LACCOUNT: [id number]#: [id number] : 1945 LOCATION: ER AGE: 74 SEX: F EXAM STATUS: REG ER ORD. PHYSICIAN: CARLITOS WARREN APRN REASON: fall PROCEDURE: CT THORACIC SPINE WO CONTRAST CT THORACIC SPINE WO CONTRAST, CT HEAD AND CERVICAL SPINE WO Clinical indications: Fall. Neck pain and back pain NONCONTRAST HEAD CT COMPARISON: May 06, 2019. Technique: Noncontrast axial cross sectional scanning of the head was performed. PQRS compliance Statement One or more of the following individualized dose reduction techniques were utilized for this study: 1. Automated exposure control 2. Adjustment of the mA and/or kV according to patient size 3. Use of iterative reconstruction technique Findings: No acute intracranial hemorrhage or midline shift or mass-effect or hydrocephalus or extra-axial fluid collection is seen. No new focal hypodense area or sulci effacement is seen to indicate an acute infarct or edema radiographically. No skull fracture or pneumocephalus is seen. No opacification of the mastoid sinuses or the paranasal sinuses is seen. The maxillary sinuses are not completely seen in this study. Impression: No acute intracranial abnormality is seen. CERVICAL SPINE AND THORACIC SPINE CT WITHOUT CONTRAST: TECHNIQUE: Noncontrast helical CT scanning of the cervical spine and thoracic spine was performed. Multiplanar 2-D reconstructions were generated. CERVICAL SPINE CT: No acute fracture or discitis or lytic process is evident. Is grade 1 anterolisthesis of C7-T1. Degenerative facet arthropathy is evident. No perching of facet joints is seen. Degenerative disc space narrowing and endplate spurring is seen at C4-5 and C5-6 and C6-7. IMPRESSION: No acute fracture. THORACIC SPINE CT: There is mild compression fracture of T3 vertebral body which was seen previously on May 06, 2019. Fusion of T10-L1 is seen. This was performed to stabilize a severe compression fracture of T12. This is unchanged from chest CT dated April 27, 2019. There is narrowing of the spinal canal worse on the left side. This is unchanged. No new compression fracture is evident. Alignment is unchanged. No discitis or lytic process is evident.There is nodular infiltrate within the left apex which was not seen previously. IMPRESSION: Stable severe compression fracture of T12. Stable fusion. Stable mild wedge compression fracture of T3. No new compression fractures are evident. New nodular infiltrate of the left apex. This may represent infection or inflammation. A neoplastic process has not been excluded. Electronically signed by: Parviz Lynne MD (05/20/2019 5:26 PM) [facility] Course & Med Decision Making Course & Med Decision Making Pertinent Labs and Imaging studies reviewed. (See chart for details) Patient has Parkinson's and lost her balance. Will get a head CT/c/t spine. Imaging is negative. Will d/c home. Dragon Disclaimer Dragon Disclaimer This electronic medical record was generated, in whole or in part, using a voice recognition dictation system. Departure Departure Impression: Primary Impression: Fall Disposition: 01 HOME, SELF-CARE Condition: STABLE Referrals: KAUR LOTT MD (PCP) Patient Instructions: Fall Prevention and Home Safety Additional Instructions: Thank you for visiting [facility]. We appreciate you trusting us with your care. If any additional problems come up don't hesitate to return to visit us. Please follow up with your primary care provider so they can plan additional care if needed and know about the problem that you had. If symptoms worsen come back to the Emergency Department. Any concerning symptoms that start such as chest pain, shortness of Air, weakness or numbness on one side of the body, running high fevers or any other concerning symptoms return to the ER. Problem Qualifiers Primary Impression: Fall Encounter type: initial encounter Qualified Codes: W19.XXXA - Unspecified fall, initial encounter CARLITOS WARREN APRN May 20, 2019 16:52
--- NOTE | 2019-05-20 17:29 | RAD ---
CT THORACIC SPINE WO CONTRAST, CT HEAD AND CERVICAL SPINE WO Clinical indications: Fall. Neck pain and back pain NONCONTRAST HEAD CT COMPARISON: May 06, 2019. Technique: Noncontrast axial cross sectional scanning of the head was performed. PQRS compliance Statement One or more of the following individualized dose reduction techniques were utilized for this study: 1. Automated exposure control 2. Adjustment of the mA and/or kV according to patient size 3. Use of iterative reconstruction technique Findings: No acute intracranial hemorrhage or midline shift or mass-effect or hydrocephalus or extra-axial fluid collection is seen. No new focal hypodense area or sulci effacement is seen to indicate an acute infarct or edema radiographically. No skull fracture or pneumocephalus is seen. No opacification of the mastoid sinuses or the paranasal sinuses is seen. The maxillary sinuses are not completely seen in this study. Impression: No acute intracranial abnormality is seen. CERVICAL SPINE AND THORACIC SPINE CT WITHOUT CONTRAST: TECHNIQUE: Noncontrast helical CT scanning of the cervical spine and thoracic spine was performed. Multiplanar 2-D reconstructions were generated. CERVICAL SPINE CT: No acute fracture or discitis or lytic process is evident. Is grade 1 anterolisthesis of C7-T1. Degenerative facet arthropathy is evident. No perching of facet joints is seen. Degenerative disc space narrowing and endplate spurring is seen at C4-5 and C5-6 and C6-7. IMPRESSION: No acute fracture. THORACIC SPINE CT: There is mild compression fracture of T3 vertebral body which was seen previously on May 06, 2019. Fusion of T10-L1 is seen. This was performed to stabilize a severe compression fracture of T12. This is unchanged from chest CT dated April 27, 2019. There is narrowing of the spinal canal worse on the left side. This is unchanged. No new compression fracture is evident. Alignment is unchanged. No discitis or lytic process is evident.There is nodular infiltrate within the left apex which was not seen previously. IMPRESSION: Stable severe compression fracture of T12. Stable fusion. Stable mild wedge compression fracture of T3. No new compression fractures are evident. New nodular infiltrate of the left apex. This may represent infection or inflammation. A neoplastic process has not been excluded. Electronically signed by: Parviz Lynne MD (05/20/2019 5:26 PM) [facility]
[2019-05-20] MEDS ORDERED: HYDROcodone/APAP 5/325MG 1 TAB TABLET PO ONE (17:30)
== END 2019-05-20 21:08 | disposition home or self-care (01) ==
LOC: ER 15:15
DX: R51 Headache (principal); M54.6 Pain in thoracic spine; M54.2 Cervicalgia; G89.11 Acute pain due to trauma; E78.00 Pure hypercholesterolemia, unspecified; E03.9 Hypothyroidism, unspecified; G20 Parkinson's disease; Z90.710 Acquired absence of both cervix and uterus; Z98.890 Other specified postprocedural states; Z90.49 Acquired absence of other specified parts of digestive tract; Z88.0 Allergy status to penicillin; Z88.2 Allergy status to sulfonamides; Z88.8 Allergy status to other drugs, medicaments and biological substances; W18.39XA Other fall on same level, initial encounter; Y93.89 Activity, other specified; Y92.89 Other specified places as the place of occurrence of the external cause; Y99.8 Other external cause status
CPT/HCPCS: 70450; 72125; 72128; 99284-25

== ENCOUNTER 2019-07-17 15:40 | Emergency (ER) | payer MEDICARE ==
[~2019-07-17] VITALS: Ht 165.1 cm; Wt 65.8 kg
--- NOTE | 2019-07-17 16:01 | PHYS DOC ---
Past Medical History Past Medical History: Depression, High Cholesterol, Hypothyroid Additional Past Medical Histor: PARKINSONS (CARMENCITA SCHMITT APRN) Past Surgical History: Cholecystectomy, Hysterectomy, Knee Replacement, Other Additional Past Surgical Histo: 3 back sx, breast biopsy, carpal tunnel, miniscus repair, ostomy (CARMENCITA SCHMITT APRN) Alcohol Use: None Drug Use: None (CARMENCITA SCHMITT APRN) Adult General Chief Complaint Chief Complaint: MECHANICAL FALL HPI HPI Patient is a 74 year old female who presents today from the group home to be evaluated for fall. Patient states she was cleaning up after a game in the group home when she tripped and fell on a sweater there was on the ground. Patient denies any loss of consciousness. Denies being on any anticoagulants. She is complaining of posterior head pain, neck pain, mid back pain. She states the group home prevented her from falling but EMS reports she was able to get up and pivot to the cart. She appears slightly confused but EMS reports that is her baseline mental status. (CARMENCITA SCHMITT APRN) Review of Systems Review of Systems Constitutional: Denies fever or chills [] Eyes: Denies change in visual acuity, redness, or eye pain [] HENT: Denies nasal congestion or sore throat [] Respiratory: Denies cough or shortness of breath [] Cardiovascular: No additional information not addressed in HPI [] GI: Denies abdominal pain, nausea, vomiting, bloody stools or diarrhea [] : Denies dysuria or hematuria [] Musculoskeletal: Reports neck pain, back pain. Integument: Denies rash or skin lesions [] Neurologic: Reports posterior head pain. Denies headache, focal weakness or sensory changes [] All other systems were reviewed and found to be within normal limits, except as documented in this note. (CARMENCITA SCHMITT APRN) Allergies Allergies Allergies Coded Allergies Type Severity Reaction Last Updated Verified Penicillins Allergy Intermediate hives 01/19/17 Yes Sulfa (Sulfonamide Antibiotics) Allergy Intermediate hives 01/19/17 Yes potassium chloride Allergy Intermediate 02/11/17 Yes (ARTHUR CAREY MD) Physical Exam Physical Exam Constitutional: Well developed, well nourished, no acute distress, non-toxic appearance. [] HENT: Normocephalic, atraumatic, bilateral external ears normal, oropharynx moist, no oral exudates, nose normal. [] Eyes: PERRLA, EOMI, conjunctiva normal, no discharge. [] Neck: Patient is in a cervical collar. Slight midline posterior neck tenderness. Limited range of motion to the cervical spine due to c-collar, supple, no stridor. [] Cardiovascular:Heart rate regular rhythm, no murmur [] Lungs & Thorax: Bilateral breath sounds clear to auscultation [] Abdomen: Bowel sounds normal, soft, no tenderness, no masses, no pulsatile masses. [] Skin: Warm, dry, no erythema, no rash. [] Back: Old healed surgical scars noted midline thoracic spine bruising noted mi dline thoracic spine with deformity of the thoracic spine from previous surgical rods. Midline thoracic spine tenderness, no CVA tenderness. [] Extremities: No tenderness, no cyanosis, no clubbing, ROM intact, no edema. [] Neurologic: Alert and oriented X 3, normal motor function, normal sensory function, no focal deficits noted. Cranial nerves II through XII intact Psychologic: Affect normal, judgement normal, mood normal. [] (CARMENCITA SCHMITT APRN) Current Patient Data Vital Signs Vital Signs Date Time Temp Pulse Resp B/P (MAP) Pulse Ox O2 Delivery O2 Flow Rate FiO2 07/17/19 18:45 98.9 84 16 94 98.9 (ARTHUR CAREY MD) Lab Values Laboratory Tests Test 07/17/19 16:43 Urine Collection Type Void Urine Color Yellow Urine Clarity Clear Urine pH 6.0 Urine Specific [place] 1.010 Urine Protein Negative mg/dL (NEG-TRACE) Urine Glucose (UA) Negative mg/dL (NEG) Urine Ketones (Stick) Negative mg/dL (NEG) Urine Blood Moderate (NEG) Urine Nitrite Negative (NEG) Urine Bilirubin Negative (NEG) Urine Urobilinogen Dipstick 1.0 mg/dL (0.2 mg/dL) Urine Leukocyte Esterase Small (NEG) Urine RBC 1-2 /HPF (0-2) Urine WBC 1-4 /HPF (0-4) Urine Squamous Epithelial Cells Few /LPF Urine Bacteria Few /HPF (0-FEW) (ARTHUR CAREY MD) Lab Values Laboratory Tests Test 07/17/19 16:43 Urine Collection Type Void Urine Color Yellow Urine Clarity Clear Urine pH 6.0 Urine Specific [place] 1.010 Urine Protein Negative mg/dL (NEG-TRACE) Urine Glucose (UA) Negative mg/dL (NEG) Urine Ketones (Stick) Negative mg/dL (NEG) Urine Blood Moderate (NEG) Urine Nitrite Negative (NEG) Urine Bilirubin Negative (NEG) Urine Urobilinogen Dipstick 1.0 mg/dL (0.2 mg/dL) Urine Leukocyte Esterase Small (NEG) Urine RBC 1-2 /HPF (0-2) Urine WBC 1-4 /HPF (0-4) Urine Squamous Epithelial Cells Few /LPF Urine Bacteria Few /HPF (0-FEW) (CARMENCITA SCHMITT CAR RETARDER OPERATOR) EKG EKG [] (CARMENCITA SCHMITT CAR RETARDER OPERATOR) Radiology/Procedures Radiology/Procedures []PROCEDURE: CT HEAD AND CERVICAL SPINE WO Exam: CT head and cervical spine INDICATION: Fall 2 days ago TECHNIQUE: Sequential axial images through the head and cervical spine were obtained without the administration of IV contrast. Comparisons: None FINDINGS: Head: No focal parenchymal lesion or hemorrhage is identified. There is no midline shift or sulcal effacement. Mild patchy hypodensity within the periventricular white matter, which is similar when compared to the prior exam. The ventricular system is within normal limits without compression hydrocephalus. The basal cisterns are well maintained. The visualized portions of the paranasal sinuses and mastoid air cells are well-pneumatized. No acute fractures. Cervical spine: Vertebral body heights and alignment are well-maintained. Fracture to the cervical spine is identified. Multilevel spondylotic changes noted in the cervical spine with degenerative disc disease greatest at C4-C5, C5-C6 and C6-C7. Visualized paraspinal soft tissues are unremarkable. IMPRESSION: 1. Chronic ischemic change without acute intracranial abnormality. 2. Negative CT C-spine for acute traumatic injury. Exposure: One or more of the following in the visualized dose reduction techniques were utilized for this examination: 1. Automated exposure control 2. Adjustment of the MA and/or KV according to patient size Use of iterative of reconstructive technique Electronically signed by: Esvin Prado MD (07/17/2019 4:19 PM) [facility] DICTATED and SIGNED BY: ESVIN PRADO MD DATE: 07/17/19 7475 PROCEDURE: CT LUMBAR SPINE WO CONTRAST CT thoracic and lumbar spine without contrast Indication: Fall a couple of days ago with back pain Technique: Noncontrast CT imaging was performed of the thoracic and lumbar spine, multiplanar reconstruction images submitted. One or more of the following individualized dose reduction techniques were utilized for this examination: 1. Automated exposure control 2. Adjustment of the mA and/or kV according to patient size 3. Use of iterative reconstruction technique. Comparison: May 20, 2019 CT thoracic spine exam and reconstruction images from CT abdomen pelvis performed February 09, 2017 Thoracic spine: Findings: There is again T12 vertebral body fracture, similar degree of osseous retropulsion. Thoracic vertebral body stature is unchanged, mild superior endplate concavity of T3 unchanged. There is bone demineralization. There is again posterolateral fusion hardware L1, T12, T11, T10 with bilateral pedicle screws attached to intact vertical rods at these levels. Osseous retropulsion again indents the ventral left lateral recess at T12 with moderate to severe narrowing of the far left lateral recess. Facet degenerative change contributes to fairly severe left and moderate to severe right T9-10 neural foramina compromise. There is also neural foramina compromise such as on the right T2-3, T3-4, and T8-9 and on the left at T1-T2, T3-4, T5-T6, T10-11, T11-12 in part from facets.. IMPRESSION: 1. Findings are similar compared with previous April 2019 exam. There is again T12 vertebral body fracture, osseous retropulsion resulting in left lateral recess stenosis. There is again posterolateral fusion hardware T10-L1. There is multilevel lumbar thoracic neural foramina compromise. Lumbar spine: FINDINGS: There is bone demineralization. Lumbar vertebral body stature is overall preserved and unchanged. AP alignment is similar, negligible anterior spondylolisthesis L2-3, negligible posterior subluxation L3 relative to L4 and L4 relative to L5. There is multilevel advanced lumbar degenerative disc disease and variable vacuum disc disease throughout lumbar spine. No acute lumbar spine fracture is identified. There is multilevel lumbar facet hypertrophic change. There is multilevel lumbar neural foramina compromise, severe narrowing left greater than right at L4-5 and to lesser degree on the right at L3-4 and L2-3, and left greater than right at L5-S1. There has been posterior decompression centered at L5. There is likely gqlf-az-rbhatyyp spinal stenosis with lateral recess stenosis greater on the left at L2-3. IMPRESSION: 1. No acute lumbar spine fracture is identified. 2. There is bone demineralization. 3. There is multilevel lumbar degenerative disc disease. There is mild abnormal alignment. There is probable xmvu-cz-pdfeysrs spinal stenosis at L4-3. There is multilevel variable lumbar neural foramina compromise. Electronically signed by: Sindy Herrera MD (07/17/2019 4:53 PM) [id number] PROCEDURE: CT THORACIC SPINE WO CONTRAST CT thoracic and lumbar spine without contrast Indication: Fall a couple of days ago with back pain Technique: Noncontrast CT imaging was performed of the thoracic and lumbar spine, multiplanar reconstruction images submitted. One or more of the following individualized dose reduction techniques were utilized for this examination: 1. Automated exposure control 2. Adjustment of the mA and/or kV according to patient size 3. Use of iterative reconstruction technique. Comparison: May 20, 2019 CT thoracic spine exam and reconstruction images from CT abdomen pelvis performed February 09, 2017 Thoracic spine: Findings: There is again T12 vertebral body fracture, similar degree of osseous retropulsion. Thoracic vertebral body stature is unchanged, mild superior endplate concavity of T3 unchanged. There is bone demineralization. There is again posterolateral fusion hardware L1, T12, T11, T10 with bilateral pedicle screws attached to intact vertical rods at these levels. Osseous retropulsion again indents the ventral left lateral recess at T12 with moderate to severe narrowing of the far left lateral recess. Facet degenerative change contributes to fairly severe left and moderate to severe right T9-10 neural foramina compromise. There is also neural foramina compromise such as on the right T2-3, T3-4, and T8-9 and on the left at T1-T2, T3-4, T5-T6, T10-11, T11-12 in part from facets.. IMPRESSION: 1. Findings are similar compared with previous April 2019 exam. There is again T12 vertebral body fracture, osseous retropulsion resulting in left lateral recess stenosis. There is again posterolateral fusion hardware T10-L1. There is multilevel lumbar thoracic neural foramina compromise. Lumbar spine: FINDINGS: There is bone demineralization. Lumbar vertebral body stature is overall preserved and unchanged. AP alignment is similar, negligible anterior spondylolisthesis L2-3, negligible posterior subluxation L3 relative to L4 and L4 relative to L5. There is multilevel advanced lumbar degenerative disc disease and variable vacuum disc disease throughout lumbar spine. No acute lumbar spine fracture is identified. There is multilevel lumbar facet hypertrophic change. There is multilevel lumbar neural foramina compromise, severe narrowing left greater than right at L4-5 and to lesser degree on the right at L3-4 and L2-3, and left greater than right at L5-S1. There has been posterior decompression centered at L5. There is likely fqqz-ga-vseuxtsz spinal stenosis with lateral recess stenosis greater on the left at L2-3. IMPRESSION: 1. No acute lumbar spine fracture is identified. 2. There is bone demineralization. 3. There is multilevel lumbar degenerative disc disease. There is mild abnormal alignment. There is probable eqvy-md-cxzhqfao spinal stenosis at L4-3. There is multilevel variable lumbar neural foramina compromise. Electronically signed by: Sindy Herrera MD (07/17/2019 4:53 PM) [id number] DICTATED and SIGNED BY: SINDY HERRERA MD DATE: 07/17/19 165 PROCEDURE: HIP BILATERAL WITH PELVIS HIP BILATERAL WITH PELVIS History: Bilateral hip pain. History of trauma. Technique: AP view the pelvis. 2 views bilateral hips. Comparison: CT February 09, 2017 Findings: Normal alignment of the hips bilaterally. No fracture. Linear dystrophic calcification medial to the right proximal femur, unchanged. Lower lumbar spondylosis. Impression: 1. No acute osseous abnormality. Electronically signed by: Prosper Hernandez DO (07/17/2019 5:48 PM) [id number] DICTATED and SIGNED BY: PROSPER HERNANDEZ DO DATE: 07/17/19 1748 (CARMENCITA SCHMITT APRN) Course & Med Decision Making Course & Med Decision Making Pertinent Labs and Imaging studies reviewed. (See chart for details) This is a 74-year-old female patient presenting to the ED today to be evaluated status post falling. Complaining of posterior head and neck pain. Also complaining of mid back pain. CT of the head, cervical spine, thoracic and lumbar spine are negative. Bilateral hip x-rays are negative. Positive for UTI. Discharged on [employer]. Follow-up with PCP at the group home. (CARMENCITA SCHMITT APRN) Course & Med Decision Making Staff Physician Addendum: I was working in the ER during the course of this patient's visit. I was available for consultation as needed, but I was not directly involved in the care of this patient. (ARTHUR CAREY MD) Dragon Disclaimer Dragon Disclaimer This electronic medical record was generated, in whole or in part, using a voice recognition dictation system. (CARMENCITA SCHMITT APRN) Departure Departure Impression: Primary Impression: Fall from standing Additional Impressions: Scalp contusion UTI (urinary tract infection) Disposition: HOME, SELF-CARE Condition: STABLE Referrals: KAUR LOTT MD (PCP) follow up in one week Patient Instructions: Contusion, [id number], Urinary Tract Infection Additional Instructions: You were evaluated in the emergency room, your CAT scan of the head, cervical spine, thoracic and lumbar spine were negative for any acute findings. Your bilateral hip x-rays including pelvis were also negative for any acute findings. Your urine was noted to have infection. Take the prescribed antibiotics until completed. Follow-up with your doctor in 1-2 weeks Scripts Nitrofurantoin Monohyd/M-Cryst (MACROBID 100 MG CAPSULE) 100 Mg Capsule 1 CAP PO BID, #14 CAP Prov: CARMENCITA SCHMITT APRN 07/17/19 Problem Qualifiers Primary Impression: Fall from standing Encounter type: initial encounter Qualified Codes: W19.XXXA - Unspecified fall, initial encounter Additional Impressions: Scalp contusion Encounter type: initial encounter Qualified Codes: S00.03XA - Contusion of scalp, initial encounter UTI (urinary tract infection) Urinary tract infection type: acute cystitis Hematuria presence: without hematuria Qualified Codes: N30.00 - Acute cystitis without hematuria CARMENCITA SCHMITT APRN Jul 17, 2019 16:01 ARTHUR CAREY MD Jul 17, 2019 22:10
--- NOTE | 2019-07-17 16:22 | RAD ---
Exam: CT head and cervical spine INDICATION: Fall 2 days ago TECHNIQUE: Sequential axial images through the head and cervical spine were obtained without the administration of IV contrast. Comparisons: None FINDINGS: Head: No focal parenchymal lesion or hemorrhage is identified. There is no midline shift or sulcal effacement. Mild patchy hypodensity within the periventricular white matter, which is similar when compared to the prior exam. The ventricular system is within normal limits without compression hydrocephalus. The basal cisterns are well maintained. The visualized portions of the paranasal sinuses and mastoid air cells are well-pneumatized. No acute fractures. Cervical spine: Vertebral body heights and alignment are well-maintained. Fracture to the cervical spine is identified. Multilevel spondylotic changes noted in the cervical spine with degenerative disc disease greatest at C4-C5, C5-C6 and C6-C7. Visualized paraspinal soft tissues are unremarkable. IMPRESSION: 1. Chronic ischemic change without acute intracranial abnormality. 2. Negative CT C-spine for acute traumatic injury. Exposure: One or more of the following in the visualized dose reduction techniques were utilized for this examination: 1. Automated exposure control 2. Adjustment of the MA and/or KV according to patient size Use of iterative of reconstructive technique Electronically signed by: Esvin Martinez MD (07/17/2019 4:19 PM) [facility]
[2019-07-17 16:52] LABS: BILIRUBIN,URINE NEGATIVE (NEG); CLARITY,URINE CLEAR; COLOR,URINE YELLOW; NITRITE,URINE NEGATIVE (NEG); PROTEIN,URINE NEGATIVE (NEG-TRACE)
--- NOTE | 2019-07-17 16:56 | RAD ---
CT thoracic and lumbar spine without contrast Indication: Fall a couple of days ago with back pain Technique: Noncontrast CT imaging was performed of the thoracic and lumbar spine, multiplanar reconstruction images submitted. One or more of the following individualized dose reduction techniques were utilized for this examination: 1. Automated exposure control 2. Adjustment of the mA and/or kV according to patient size 3. Use of iterative reconstruction technique. Comparison: May 20, 2019 CT thoracic spine exam and reconstruction images from CT abdomen pelvis performed February 09, 2017 Thoracic spine: Findings: There is again T12 vertebral body fracture, similar degree of osseous retropulsion. Thoracic vertebral body stature is unchanged, mild superior endplate concavity of T3 unchanged. There is bone demineralization. There is again posterolateral fusion hardware L1, T12, T11, T10 with bilateral pedicle screws attached to intact vertical rods at these levels. Osseous retropulsion again indents the ventral left lateral recess at T12 with moderate to severe narrowing of the far left lateral recess. Facet degenerative change contributes to fairly severe left and moderate to severe right T9-10 neural foramina compromise. There is also neural foramina compromise such as on the right T2-3, T3-4, and T8-9 and on the left at T1-T2, T3-4, T5-T6, T10-11, T11-12 in part from facets.. IMPRESSION: 1. Findings are similar compared with previous April 2019 exam. There is again T12 vertebral body fracture, osseous retropulsion resulting in left lateral recess stenosis. There is again posterolateral fusion hardware T10-L1. There is multilevel lumbar thoracic neural foramina compromise. Lumbar spine: FINDINGS: There is bone demineralization. Lumbar vertebral body stature is overall preserved and unchanged. AP alignment is similar, negligible anterior spondylolisthesis L2-3, negligible posterior subluxation L3 relative to L4 and L4 relative to L5. There is multilevel advanced lumbar degenerative disc disease and variable vacuum disc disease throughout lumbar spine. No acute lumbar spine fracture is identified. There is multilevel lumbar facet hypertrophic change. There is multilevel lumbar neural foramina compromise, severe narrowing left greater than right at L4-5 and to lesser degree on the right at L3-4 and L2-3, and left greater than right at L5-S1. There has been posterior decompression centered at L5. There is likely jbjc-un-udxcckbm spinal stenosis with lateral recess stenosis greater on the left at L2-3. IMPRESSION: 1. No acute lumbar spine fracture is identified. 2. There is bone demineralization. 3. There is multilevel lumbar degenerative disc disease. There is mild abnormal alignment. There is probable udem-hw-kjbvvsiw spinal stenosis at L4-3. There is multilevel variable lumbar neural foramina compromise. Electronically signed by: Ra Ashley MD (07/17/2019 4:53 PM) [facility]
[2019-07-17 16:58] LABS: BACTERIA,URINE FEW /HPF (0-FEW); SQUAMOUS EPITHELIAL CELL,UR FEW /LPF
--- NOTE | 2019-07-17 17:51 | RAD ---
HIP BILATERAL WITH PELVIS History: Bilateral hip pain. History of trauma. Technique: AP view the pelvis. 2 views bilateral hips. Comparison: CT February 09, 2017 Findings: Normal alignment of the hips bilaterally. No fracture. Linear dystrophic calcification medial to the right proximal femur, unchanged. Lower lumbar spondylosis. Impression: 1. No acute osseous abnormality. Electronically signed by: Prosper Hilton DO (07/17/2019 5:48 PM) [id number]
[2019-07-17] MEDS ORDERED: NITR100C62 PO (18:08)
[2019-07-17 18:45] VITALS: BP 175/89
== END 2019-07-17 19:00 | disposition home or self-care (01) ==
LOC: ER 15:40
DX: S00.03XA Contusion of scalp, initial encounter (principal); N30.00 Acute cystitis without hematuria; M54.2 Cervicalgia; M54.6 Pain in thoracic spine; F32.9 Major depressive disorder, single episode, unspecified; E78.00 Pure hypercholesterolemia, unspecified; E03.9 Hypothyroidism, unspecified; Z90.49 Acquired absence of other specified parts of digestive tract; Z90.710 Acquired absence of both cervix and uterus; Z96.659 Presence of unspecified artificial knee joint; Z88.0 Allergy status to penicillin; Z88.2 Allergy status to sulfonamides; Z88.8 Allergy status to other drugs, medicaments and biological substances; W18.09XA Striking against other object with subsequent fall, initial encounter; Y93.89 Activity, other specified; Y92.129 Unspecified place in nursing home as the place of occurrence of the external cause; Y99.8 Other external cause status
CPT/HCPCS: 70450; 72125; 72128; 72131; 73521; 81001; 87086; 99285-25

== ENCOUNTER 2019-08-10 15:22 | Emergency (ER) | payer MEDICARE ==
[~2019-08-10] VITALS: Ht 162.6 cm; Wt 68.5 kg
[2019-08-10 15:22] VITALS: BP 158/75
[~2019-08-10 15:22] MED LIST changes: -CLON1TAB11 PO; +CLONAZEPAM1 MG PO; +NITR100C62 PO
[2019-08-10] MEDS ORDERED: LIDOCAINE/EPI/TETRACAINE TOPICAL GEL 3 ML. TP ONE (15:45)
[2019-08-10] MEDS ORDERED: NEOMY/BACITR/POLYMYXIN OINT PACKET. TP ONE (15:45)
--- NOTE | 2019-08-10 16:13 | PHYS DOC ---
Past Medical History Past Medical History: Dementia, Depression, High Cholesterol, Hypothyroid Additional Past Medical Histor: PARKINSONS Past Surgical History: Cholecystectomy, Hysterectomy, Knee Replacement, Other Additional Past Surgical Histo: 3 back sx, breast biopsy, carpal tunnel, miniscus repair, ostomy Alcohol Use: None Drug Use: None Adult General Chief Complaint Chief Complaint: MECHANICAL FALL HPI HPI Patient is a 74 year old female who presents to the emergency department via EMS with complaints of a laceration to the back of her right scalp after losing her balance and falling in her kitchen this afternoon. Patient states she has a history of Parkinson's and loses her balance rather often. She denies any vision changes, nausea, vomiting, loss of consciousness, neck pain, back pain, numbness, tingling, or weakness after the fall. She currently rates her pain as 7 out of 10 on pain scale, there are no alleviating or exacerbating factors. Patient states her last tetanus shot was less than 5 years ago. She denies the use of any blood thinners. Review of Systems Review of Systems Constitutional: Denies fever or chills [] Eyes: Denies change in visual acuity, redness, or eye pain [] HENT: Denies nasal congestion or sore throat [] Respiratory: Denies cough or shortness of breath [] Cardiovascular: No additional information not addressed in HPI, denies chest pain or palpitations [] GI: Denies abdominal pain, nausea, vomiting, or diarrhea [] : Denies dysuria or hematuria [] Musculoskeletal: Denies back pain or joint pain [] Integument: Denies rash or skin lesions [] Neurologic: Denies headache, dizziness, focal weakness, or sensory changes [] Complete systems were reviewed and found to be within normal limits, except as documented in this note. Current Medications Current Medications Current Medications Medications (Trade) Dose Ordered Sig/Maico Start Time Stop Time Status Last Admin Dose Admin Lidocaine/ Epinephrine (Let Topical) 3 ml 1X ONCE 08/10/19 15:45 08/10/19 15:52 DC Neomycin/ Polymyxin/ Bacitracin (Triple Antibiotic Ointment) 1 pkt 1X ONCE 08/10/19 15:45 08/10/19 15:52 DC 08/10/19 16:06 1 PKT Allergies Allergies Allergies Coded Allergies Type Severity Reaction Last Updated Verified Penicillins Allergy Intermediate hives 01/19/17 Yes Sulfa (Sulfonamide Antibiotics) Allergy Intermediate hives 01/19/17 Yes potassium chloride Allergy Intermediate 02/11/17 Yes Physical Exam Physical Exam Constitutional: Well developed, well nourished, no acute distress, non-toxic appearance. [] HENT: Normocephalic, atraumatic, bilateral external ears normal, oropharynx moist, no oral exudates, nose normal. [] Eyes: PERRLA, EOMI, conjunctiva normal, no discharge. [] Neck: Normal range of motion, no tenderness, supple, no stridor. [] Cardiovascular:Heart rate regular rhythm, no murmur [] Lungs & Thorax: Bilateral breath sounds clear to auscultation [] Skin: Warm, dry, no erythema, no rash; abrasion noted to right side of low back; 2 cm laceration noted to posterior right scalp. [] Back: No bony tenderness, no CVA tenderness. [] Extremities: No tenderness, no cyanosis, no clubbing, ROM intact, no edema. [] Neurologic: Alert and oriented X 3, normal motor function, normal sensory function, no focal deficits noted. [] Psychologic: Affect normal, judgement normal, mood normal. [] Current Patient Data Vital Signs Vital Signs Date Time Temp Pulse Resp B/P (MAP) Pulse Ox O2 Delivery O2 Flow Rate FiO2 08/10/19 15:22 98.1 71 18 158/75 (102) 97 Room Air 98.1 EKG EKG [] Radiology/Procedures Radiology/Procedures PROCEDURE: CT HEAD WO CONTRAST EXAM: CT Head without IV contrast CLINICAL HISTORY: COMPARISON: None. TECHNIQUE: Routine CT of the head without contrast. Soft tissues and bone windows were reviewed. PQRS compliance statement - One or more of the following individualized dose reduction techniques were utilized for this study: 1. Automated exposure control 2. Adjustment of the mA and/or kV according to patient size 3. Use of iterative reconstruction technique FINDINGS: Subcutaneous soft tissue swelling overlying the right posterior parietal region with foci of subcutaneous gas. There is no evidence of hemorrhage, mass or extra-axial fluid collection. Mccollum-white differentiation is maintained with no evidence of edema. There is no mass effect or shift of the intracranial structures. The ventricles, basilar cisterns and cortical sulci are normal in size and configuration for the patients stated age. The cerebellum and brainstem are unremarkable. The calvarium demonstrates no evidence of fracture or focal lesion. There is normal aeration of the visualized paranasal sinuses and mastoid air cells. The visualized portions of the orbits are normal. IMPRESSION: 1. Subcutaneous soft tissue swelling/lacerations overlying the right posterior parietal region with foci of subcutaneous gas.[] Laceration Repair by me: Anesthesia: none Location: R posterior scalp Tendon/Joint/Nerves: No injury Foreign body: None detected after copious irrigation and exploration Technique: 4 surgical stables Complexity: No subcutaneous sutures/mucosal repair/edge excision Post Closure Length: 2 cm Patient's bleeding was easily controlled in the department and there is no indication of anemia. No evidence of compartment syndrome, neurologic injury, vascular injury, open joint, tendon laceration, or foreign body. Patient is appropriate for outpatient follow up. Course & Med Decision Making Course & Med Decision Making Pertinent Labs and Imaging studies reviewed. (See chart for details) [] Dragon Disclaimer Dragon Disclaimer This electronic medical record was generated, in whole or in part, using a voice recognition dictation system. Departure Departure Impression: Primary Impression: Laceration of scalp without complication Additional Impressions: Abrasion of back Fall from standing Closed head injury without loss of consciousness Disposition: 01 HOME, SELF-CARE Condition: STABLE Referrals: KAUR LOTT MD (PCP) Patient Instructions: Abrasion, [id number], Head Injury, Adult, Amrb-[id number], Staple Wound Closure, [id number]-[id number] Additional Instructions: Follow the head injury precautions provided. Tylenol or ibuprofen as needed for pain. Keep the affected area clean and dry. Return to the ER or follow up with your Primary care doctor in 7 days to have naren removed. Problem Qualifiers Primary Impression: Laceration of scalp without complication Encounter type: initial encounter Qualified Codes: S01.01XA - Laceration without foreign body of scalp, initial encounter Additional Impressions: Abrasion of back Encounter type: initial encounter Laterality: right Qualified Codes: S20.411A - Abrasion of right back wall of thorax, initial encounter Fall from standing Encounter type: initial encounter Qualified Codes: W19.XXXA - Unspecified fall, initial encounter Closed head injury without loss of consciousness Encounter type: initial encounter Qualified Codes: S09.90XA - Unspecified injury of head, initial encounter SEBASTIEN FRANCISCO [employer] Aug 10, 2019 16:13
== END 2019-08-10 17:54 | disposition home or self-care (01) ==
LOC: ER 15:22
DX: S01.01XA Laceration without foreign body of scalp, initial encounter (principal); S30.810A Abrasion of lower back and pelvis, initial encounter; E03.9 Hypothyroidism, unspecified; E78.00 Pure hypercholesterolemia, unspecified; G20 Parkinson's disease; F02.80 Dementia in other diseases classified elsewhere, unspecified severity, without behavioral disturbance, psychotic disturbance, mood disturbance, and anxiety; R51 Headache; Z90.49 Acquired absence of other specified parts of digestive tract; Z90.710 Acquired absence of both cervix and uterus; Z96.659 Presence of unspecified artificial knee joint; Z88.0 Allergy status to penicillin; Z88.2 Allergy status to sulfonamides; Z88.8 Allergy status to other drugs, medicaments and biological substances; W18.39XA Other fall on same level, initial encounter; Y93.89 Activity, other specified; Y92.090 Kitchen in other non-institutional residence as the place of occurrence of the external cause; Y99.8 Other external cause status
CPT/HCPCS: 12001; 70450; 99284

== ENCOUNTER 2019-08-31 15:49 | Emergency (ER) | payer MEDICARE ==
[~2019-08-31] VITALS: Ht 162.6 cm; Wt 69.9 kg
[~2019-08-31 15:49] MED LIST changes: +OMEP40CA45 PO; -OMEP40CA5 PO
--- NOTE | 2019-08-31 16:09 | PHYS DOC ---
Past Medical History Past Medical History: Dementia, Depression, High Cholesterol, Hypothyroid Additional Past Medical Histor: PARKINSONS (CARMENCITA SCHMITT APRN) Past Surgical History: Cholecystectomy, Hysterectomy, Knee Replacement, Other Additional Past Surgical Histo: 3 back sx, breast biopsy, carpal tunnel, miniscus repair, ostomy (CARMENCITA SCHMITT APRN) Alcohol Use: None Drug Use: None (CARMENCITA SCHMITT APRN) Attending Signature I have participated in the care of this patient and I have reviewed and agree with all pertinent clinical information above including history, exam, and recommendations. (REECE AMBRIZ MD) Adult General Chief Complaint Chief Complaint: MECHANICAL FALL HPI HPI Patient is a 74 year old female with history of dementia, depression, hypertension, who presents to the ED today from assisted living to be evaluated after falling. Patient states she was walking when she tripped on her own feet/shoes and fell. Denies any loss of consciousness. Denies being on any anticoagulants. She is complaining of mild left forehead pain, left middle finger pain and left hip pain. Patient denies any exacerbating or relieving factors to her symptoms. (CARMENCITA SCHMITT APRN) Review of Systems Review of Systems Constitutional: Denies fever or chills [] Eyes: Denies change in visual acuity, redness, or eye pain [] HENT: Denies nasal congestion or sore throat [] Respiratory: Denies cough or shortness of breath [] Cardiovascular: No additional information not addressed in HPI [] GI: Denies abdominal pain, nausea, vomiting, bloody stools or diarrhea [] : Denies dysuria or hematuria [] Musculoskeletal: Left knee dislocation, left hand. Integument: Denies rash or skin lesions [] Neurologic: Forehead bruising. Denies headache, focal weakness or sensory changes [] All other systems were reviewed and found to be within normal limits, except as documented in this note. (CARMENCITA SCHMITT APRN) Allergies Allergies Allergies Coded Allergies Type Severity Reaction Last Updated Verified Penicillins Allergy Intermediate hives 01/19/17 Yes Sulfa (Sulfonamide Antibiotics) Allergy Intermediate hives 01/19/17 Yes potassium chloride Allergy Intermediate 02/11/17 Yes (REECE AMBRIZ MD) Physical Exam Physical Exam Constitutional: Well developed, well nourished, no acute distress, non-toxic appearance. [] HENT: Normocephalic, atraumatic, bilateral external ears normal, oropharynx moist, no oral exudates, nose normal. [] Eyes: PERRLA, EOMI, conjunctiva normal, no discharge. [] Neck: Normal range of motion, no tenderness, supple, no stridor. [] Cardiovascular:Heart rate regular rhythm, no murmur [] Lungs & Thorax: Bilateral breath sounds clear to auscultation [] Abdomen: Bowel sounds normal, soft, no tenderness, no masses, no pulsatile mass es. [] Skin: Warm, dry, no erythema, no rash. [] Back: No tenderness, no CVA tenderness. [] Extremities: Left middle finger with no obvious deformity. Tenderness on palpation diffusely on the left middle finger. Full range of motion to the left hand and fingers. Adequate radial, medial, ulnar sensation to the left hand. +2 left radial pulse. Left lower extremity with no obvious deformity. No tenderness of the hip area, full range of motion to the left hip and left lower extremity. +2 bilateral pedal pulses. +1 chronic trace edema. Neurologic: Alert and oriented X 3, normal motor function, normal sensory function, no focal deficits noted. Cranial nerves II through XII intact. Small amount of bruising noted on the forehead. Psychologic: Affect normal, judgement normal, mood normal. [] (CARMENCITA SCHMITT APRN) Current Patient Data Vital Signs Vital Signs Date Time Temp Pulse Resp B/P (MAP) Pulse Ox O2 Delivery O2 Flow Rate FiO2 08/31/19 18:30 80 95 08/31/19 15:49 98.3 16 152/62 (92) Room Air 98.3 (REECE AMBRIZ MD) Lab Values Laboratory Tests Test 08/31/19 17:15 Urine Collection Type Unknown Urine Color Yellow Urine Clarity Clear Urine pH 7.5 Urine Specific [place] <=1.005 Urine Protein Negative mg/dL (NEG-TRACE) Urine Glucose (UA) Negative mg/dL (NEG) Urine Ketones (Stick) Negative mg/dL (NEG) Urine Blood Moderate (NEG) Urine Nitrite Negative (NEG) Urine Bilirubin Negative (NEG) Urine Urobilinogen Dipstick 1.0 mg/dL (0.2 mg/dL) Urine Leukocyte Esterase Small (NEG) Urine RBC 20-40 /HPF (0-2) Urine WBC 11-20 /HPF (0-4) Urine Squamous Epithelial Cells Mod /LPF Urine Transitional Epithelial Cells Few /LPF Urine Bacteria Few /HPF (0-FEW) Urine Hyaline Casts Moderate /HPF Urine Mucus Slight /LPF (REECE AMBRIZ MD) Lab Values Laboratory Tests Test 08/31/19 17:15 Urine Collection Type Unknown Urine Color Yellow Urine Clarity Clear Urine pH 7.5 Urine Specific [place] <=1.005 Urine Protein Negative mg/dL (NEG-TRACE) Urine Glucose (UA) Negative mg/dL (NEG) Urine Ketones (Stick) Negative mg/dL (NEG) Urine Blood Moderate (NEG) Urine Nitrite Negative (NEG) Urine Bilirubin Negative (NEG) Urine Urobilinogen Dipstick 1.0 mg/dL (0.2 mg/dL) Urine Leukocyte Esterase Small (NEG) Urine RBC 20-40 /HPF (0-2) Urine WBC 11-20 /HPF (0-4) Urine Squamous Epithelial Cells Mod /LPF Urine Transitional Epithelial Cells Few /LPF Urine Bacteria Few /HPF (0-FEW) Urine Hyaline Casts Moderate /HPF Urine Mucus Slight /LPF (MUTUNGA,CARMENCITA TAKER OUT) EKG EKG [] (MUTUNGA,CARMENCITA TAKER OUT) Radiology/Procedures Radiology/Procedures []PROCEDURE: HAND LEFT 3V Exam: Left hand 3 views INDICATION: Fall, pain 2 the middle finger TECHNIQUE: Frontal, lateral and oblique views of the left hand. Comparisons: None FINDINGS: Mild osteopenia. No acute or healed fractures. Soft tissues are unremarkable. Joint spaces are well-maintained. IMPRESSION: No acute osseous abnormality. Electronically signed by: Esvin Prado MD (08/31/2019 6:25 PM) [facility] DICTATED and SIGNED BY: ESVIN PRADO MD DATE: 08/31/19 1825 PROCEDURE: CT HEAD AND CERVICAL SPINE WO Examination: CT head and cervical spine without contrast HISTORY: History of fall, hit head COMPARISON: CT head from 08/10/2019, CT cervical spine 05/18/2019 Exposure: One or more of the following individualized dose reduction techniques were utilized for this examination: 1. Automated exposure control 2. Adjustment of the mA and/or kV according to patient size 3. Use of iterative reconstruction technique TECHNIQUE: 5 mm contiguous axial images were obtained from the skull base to the vertex in both bone and soft tissue algorithm. FINDINGS: Mild bilateral periventricular white matter hypodensities likely chronic small vessel ischemic disease. No evidence of acute intracranial hemorrhage. No extra-axial fluid collections. No mass effect or midline shift. Ventricular size is appropriate. Basal cisterns are patent. No fractures identified.Hutton-white differentiation is preserved.Globes and orbits are within normal limits. Paranasal sinuses and mastoid air cells are clear. IMPRESSION: No acute intracranial findings. CT CERVICAL SPINE Technique: 2.5 mm contiguous axial images were obtained from the skull base through the cervicothoracic junction in both bone and soft tissue algorithm. Additional sagittal and coronal reconstructions were also performed. FINDINGS: Vertebral body height and alignment are maintained. Cervical lordosis is preserved. The lateral masses of C1 are aligned upon C2. No fractures identified. Moderate intervertebral disc height loss identified throughout the cervical spine most at the C4-C5, C5-C6, C6-C7 vertebral levels with small posterior disc bulges and anterior and posterior osteophyte formation. The bilateral facets are well aligned. The paraspinous soft tissues are unremarkable. Visualized intracranial contents are unremarkable. Lung apices are clear. IMPRESSION: 1. No acute fracture of the cervical spine. Correlate clinically. 2. Multilevel degenerative changes cervical spine. Electronically signed by: Romeo Cartwright MD (08/31/2019 4:47 PM) [id number] DICTATED and SIGNED BY: ROMEO CARTWRIGHT MD DATE: 08/31/19 164 PROCEDURE: HIP LEFT 2V WITH PELVIS Exam: Pelvis with left hip 2 views INDICATION: Fall, pain to the middle finger TECHNIQUE: Frontal view of the pelvis with frontal and oblique views of the left hip Comparisons: None FINDINGS: There is diffuse osteopenia. No acute fractures are identified. Evaluation of the sacrum is limited secondary to overlying bowel gas. Soft tissues are unremarkable. Joint spaces are well-maintained. IMPRESSION: No acute abnormality identified. If the patient is acutely unable to bear weight recommend MRI to exclude occult hip fracture. Electronically signed by: Esvin Prado MD (08/31/2019 6:27 PM) [facility] DICTATED and SIGNED BY: ESVIN PRADO MD DATE: 08/31/19 770 (CARMENCITA SCHMITT APRN) Course & Med Decision Making Course & Med Decision Making Pertinent Labs and Imaging studies reviewed. (See chart for details) This is a 74-year-old female patient presenting from assisted living evaluated after falling. Patient is complaining of left hip pain. Left middle finger pain and hitting her head on the floor. No loss of consciousness. CT of the head and cervical spine are negative for any acute findings, left hand x-ray as well as left hip x-rays including pelvis are negative for any acute f indings. Urine noted for UTI. Discharged with Macrobid. Follow-up with PCP in a week. (CARMENCITA SCHMITT APRN) Dragon Disclaimer Dragon Disclaimer This electronic medical record was generated, in whole or in part, using a voice recognition dictation system. (CARMENCITA SCHMITT APRN) Departure Departure Impression: Primary Impression: Fall from standing Additional Impressions: Sprain of left hand Contusion of left hip Disposition: HOME, SELF-CARE Condition: STABLE Referrals: KAUR LOTT MD (PCP) Follow-up next week Patient Instructions: Contusion, [id number], Urinary Tract Infection Additional Instructions: You were evaluated in the emergency room after falling, your CT of the head and cervical spine were negative for any acute findings, your left hip x-rays including pelvis as well as left hand x-rays are negative. Follow-up with your doctor in 1-2 weeks. We do have small infection in your urine, we put you on antibiotics, ensure you complete them. Scripts Nitrofurantoin Monohyd/M-Cryst (MACROBID 100 MG CAPSULE) 100 Mg Capsule 1 CAP PO BID, #14 CAP Prov: CARMENCITA SCHMITT APRN 08/31/19 Problem Qualifiers Primary Impression: Fall from standing Encounter type: initial encounter Qualified Codes: W19.XXXA - Unspecified fall, initial encounter Additional Impressions: Sprain of left hand Encounter type: initial encounter Qualified Codes: S63.92XA - Sprain of unspecified part of left wrist and hand, initial encounter Contusion of left hip Encounter type: initial encounter Qualified Codes: S70.02XA - Contusion of left hip, initial encounter CARMENCITA SCHMITT APRN Aug 31, 2019 16:09 REECE AMBRIZ MD Sep 01, 2019 04:00
--- NOTE | 2019-08-31 16:49 | RAD ---
Examination: CT head and cervical spine without contrast HISTORY: History of fall, hit head COMPARISON: CT head from 08/10/2019, CT cervical spine 05/18/2019 Exposure: One or more of the following individualized dose reduction techniques were utilized for this examination: 1. Automated exposure control 2. Adjustment of the mA and/or kV according to patient size 3. Use of iterative reconstruction technique TECHNIQUE: 5 mm contiguous axial images were obtained from the skull base to the vertex in both bone and soft tissue algorithm. FINDINGS: Mild bilateral periventricular white matter hypodensities likely chronic small vessel ischemic disease. No evidence of acute intracranial hemorrhage. No extra-axial fluid collections. No mass effect or midline shift. Ventricular size is appropriate. Basal cisterns are patent. No fractures identified.Hutton-white differentiation is preserved.Globes and orbits are within normal limits. Paranasal sinuses and mastoid air cells are clear. IMPRESSION: No acute intracranial findings. CT CERVICAL SPINE Technique: 2.5 mm contiguous axial images were obtained from the skull base through the cervicothoracic junction in both bone and soft tissue algorithm. Additional sagittal and coronal reconstructions were also performed. FINDINGS: Vertebral body height and alignment are maintained. Cervical lordosis is preserved. The lateral masses of C1 are aligned upon C2. No fractures identified. Moderate intervertebral disc height loss identified throughout the cervical spine most at the C4-C5, C5-C6, C6-C7 vertebral levels with small posterior disc bulges and anterior and posterior osteophyte formation. The bilateral facets are well aligned. The paraspinous soft tissues are unremarkable. Visualized intracranial contents are unremarkable. Lung apices are clear. IMPRESSION: 1. No acute fracture of the cervical spine. Correlate clinically. 2. Multilevel degenerative changes cervical spine. Electronically signed by: Romeo Cartwright MD (08/31/2019 4:47 PM) [email or web address]
[2019-08-31 17:24] LABS: BILIRUBIN,URINE NEGATIVE (NEG); CLARITY,URINE CLEAR; COLOR,URINE YELLOW; NITRITE,URINE NEGATIVE (NEG); PH,URINE 7.5; PROTEIN,URINE NEGATIVE (NEG-TRACE)
[2019-08-31 17:31] LABS: HYALINE CASTS, URINE MODERATE /HPF; SQUAMOUS EPITHELIAL CELL,UR MOD /LPF
[2019-08-31 17:32] LABS: BACTERIA,URINE FEW /HPF (0-FEW); RBC,URINE 20-40 /HPF (0-2)
--- NOTE | 2019-08-31 18:28 | RAD ---
Exam: Left hand 3 views INDICATION: Fall, pain 2 the middle finger TECHNIQUE: Frontal, lateral and oblique views of the left hand. Comparisons: None FINDINGS: Mild osteopenia. No acute or healed fractures. Soft tissues are unremarkable. Joint spaces are well-maintained. IMPRESSION: No acute osseous abnormality. Electronically signed by: Esvin Martinez MD (08/31/2019 6:25 PM) [facility]
--- NOTE | 2019-08-31 18:29 | RAD ---
Exam: Pelvis with left hip 2 views INDICATION: Fall, pain to the middle finger TECHNIQUE: Frontal view of the pelvis with frontal and oblique views of the left hip Comparisons: None FINDINGS: There is diffuse osteopenia. No acute fractures are identified. Evaluation of the sacrum is limited secondary to overlying bowel gas. Soft tissues are unremarkable. Joint spaces are well-maintained. IMPRESSION: No acute abnormality identified. If the patient is acutely unable to bear weight recommend MRI to exclude occult hip fracture. Electronically signed by: sEvin Martinez MD (08/31/2019 6:27 PM) [facility]
[2019-08-31 18:30] VITALS: BP 164/75
[2019-08-31] MEDS ORDERED: NITR100C62 PO (18:57)
== END 2019-08-31 20:13 | disposition home or self-care (01) ==
LOC: ER 15:49 → EEVIPCON 15:49 → ER 20:13
DX: S63.92XA Sprain of unspecified part of left wrist and hand, initial encounter (principal); S70.02XA Contusion of left hip, initial encounter; S00.83XA Contusion of other part of head, initial encounter; R51 Headache; G20 Parkinson's disease; F02.80 Dementia in other diseases classified elsewhere, unspecified severity, without behavioral disturbance, psychotic disturbance, mood disturbance, and anxiety; F32.9 Major depressive disorder, single episode, unspecified; E78.00 Pure hypercholesterolemia, unspecified; E03.9 Hypothyroidism, unspecified; Z88.0 Allergy status to penicillin; Z88.2 Allergy status to sulfonamides; Z88.8 Allergy status to other drugs, medicaments and biological substances; W01.0XXA Fall on same level from slipping, tripping and stumbling without subsequent striking against object, initial encounter; Y93.01 Activity, walking, marching and hiking; Y92.89 Other specified places as the place of occurrence of the external cause; Y99.8 Other external cause status
CPT/HCPCS: 70450; 72125; 73130; 73502; 81001; 87086; 99285-25